=== PATIENT | female | born 1980 | race American Indian/Alaskan Native ===

== ENCOUNTER 2016-07-27 19:05 | Emergency (ER) | payer MEDICAID, SELFPAY ==
--- NOTE | 2016-07-27 19:35 | EDM.PDOC ---
ED HPI GI/ABDOMINAL - General Chief Complaint: Abdominal Pain Stated Complaint: CYST/PAIN Time Seen by Provider: 07/27/16 19:32 Source of Information: Reports: Patient, Other (notes from ) History Limitations: Reports: No limitations - History of Present Illness INITIAL COMMENTS - FREE TEXT/NARRATIVE: states been in pain past few weeks, was @ and seen by Dr Blanco surgeon and told need further w/u but in pain since then but had not call him since then. came tonight pain unbearable. - Related Data Allergies/ADRs: Allergies Allergy/AdvReac Type Severity Reaction Status Date / Time celecoxib [From Celebrex] Allergy Hives Verified 07/27/16 19:53 erythromycin base Allergy Hives Verified 07/27/16 19:53 [Erythromycin Base] ibuprofen Allergy Swelling Verified 07/27/16 19:53 naproxen Allergy Airway Verified 07/27/16 19:53 Tightness Home Meds: Home Meds . [No Known Home Meds] 05/09/16 [History] Past Medical History - Past Health History Medical/Surgical History: Denies Medical/Surgical History HEENT History: Reports: None Other HEENT History: wears corrective lenses Cardiovascular History: Reports: Other (see below) Other Cardiovascular History: cardiac arrest during pelvic surgery 3 years ago. Respiratory History: Reports: None Gastrointestinal History: Reports: Cholelithiasis Other Gastrointestinal History: diarrhea since 3 am Genitourinary History: Reports: Other (see below) Other Genitourinary History: endometrosis, PCOS. 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 Psychiatric History: Reports: None Endocrine/Metabolic History: Reports: Other (see below) Other Endocrine/Metabolic History: insulin resistant. adrenal hyperplasia Hematologic History: Reports: None Immunologic History: Reports: None Oncologic (Cancer) History: Reports: Ovarian Dermatologic History: Reports: None - Infectious Disease History Infectious Disease History: Reports: None - Past Surgical History Head Surgeries/Procedures: Reports: None GI Surgical History: Reports: Appendectomy, Cholecystectomy, Other (see below) Other GI Surgeries/Procedures: laproscopic surgeries for endometriosis x18 Female Surgical History: Reports: Hysterectomy Musculoskeletal Surgical History: Reports: None Social & Family History - Family History Family Medical History: Noncontributory Cardiac: Reports: None Respiratory: Reports: None GI: Reports: None Immunologic: Reports: None Dermatologic: Reports: None Oncologic: Reports: None - Tobacco Use Smoking Status *Q: Never Smoker Years of Tobacco use: 20 Packs/Tins Daily: 1 Used Tobacco, but Quit: No Month Tobacco Last Used: september Second Hand Smoke Exposure: No - Caffeine Use Caffeine Use: Reports: None - Alcohol Use Days Per Week of Alcohol Use: 0 - Recreational Drug Use Recreational Drug Use: No - Living Situation & Occupation Living situation: Reports: with family, single Occupation: unemployed ED ROS GENERAL - Review of Systems Review Of Systems: ROS reveals no pertinent complaints other than HPI. ED EXAM, GI/ABD - Physical Exam Exam: See Below Exam Limited By: No limitations General Appearance: alert, WD/WN, mild distress, other (crying) Ears: hearing grossly normal Throat/Mouth: Normal voice, No airway compromise Head: atraumatic Neck: non-tender, full range of motion Respiratory/Chest: no respiratory distress Cardiovascular: regular rate, rhythm GI/Abdominal: hyperactive bowel sounds, tenderness, other (suprapubic region. splinting.). No: guarding, rebound, rigidity Neurological: alert, oriented, normal cognition, other (gait limited to pain) Psychiatric: tearful Skin Exam: Warm, Dry Lymphatic: no adenopathy Course - Vital Signs Last Recorded V/S: Last Vital Signs Temp 36.3 C 07/27/16 19:11 Pulse 107 H 07/27/16 19:11 Resp 20 07/27/16 19:11 BP 132/92 H 07/27/16 19:11 Pulse Ox 97 07/27/16 19:11 - Orders/Labs/Meds Labs: Laboratory Tests 07/27/16 Range/Units 19:50 WBC 9.7 (5.0-10.0) 10^3/uL RBC 4.59 (4.2-5.4) 10^6/uL Hgb 13.7 (12.0-16.0) g/dL Hct 40.7 (37.0-47.0) % MCV 88.7 (80-100) fL MCH 29.8 (27.0-34.0) pg MCHC 33.7 (33.0-35.0) g/dL Plt Count 270 (150-450) 10^3/uL Neut % (Auto) 62.0 (42.2-75.2) % Lymph % (Auto) 27.6 (20.5-50.1) % Richardson % (Auto) 9.8 H (2-8) % Eos % (Auto) 0.4 L (1.0-3.0) % Baso % (Auto) 0.2 (0.0-1.0) % Meds: Medications Discontinued Medications Generic Name Dose Route Start Last Admin Trade Name Freq PRN Reason Stop Dose Admin Butorphanol Tartrate 2 mg 07/27/16 19:44 07/27/16 19:53 Stadol IM 07/27/16 19:45 2 mg ONETIME ONE Administration Promethazine HCl 25 mg 07/27/16 19:44 07/27/16 19:53 Phenergan IM 07/27/16 19:45 25 mg ONETIME ONE Administration - Re-Assessments/Exams Free Text/Narrative Re-Assessment/Exam: 07/27/16 19:45 fax'd report from [facility] reveal extensive w/u without any real definitive answers to justify the amount of pain experienced. currently pending repeat [place]. Pt already had repeat CAT @ [facility] on . discussed with Pt the problem of excess radiation. she agreed to repeat CBC as deciding factor. also will settle on stadol+phenergan instead of dilaudid. 07/27/16 20:14 results discussed with Pt who is less distraught at present. Departure - Departure Time of Disposition: 20:15 Disposition: Home, Self-Care 01 Condition: good Clinical Impression: Abdominal pain Qualifiers: Abdominal location: lower abdomen, unspecified Qualified Code(s): R10.30 - Lower abdominal pain, unspecified Instructions: Abdominal Pain, Adult, [id number] Forms: ED Department Discharge Additional Instructions: 1) follow up with clinic tomorrow 2) notify Dr Tay tomorrow on pain issue 3) recheck as needed
[2016-07-27] MEDS ORDERED: Butorphanol 2 MG/ML SDV IM ONE (19:44)
[2016-07-27] MEDS ORDERED: Promethazine 25 MG/ML SDV IM ONE (19:44)
[2016-07-27 20:16] VITALS: BP 108/57
== END 2016-07-27 20:22 | disposition home or self-care (01) ==
LOC: DL.ED 19:05
DX: R10.30 Lower abdominal pain, unspecified (principal); Z90.49 Acquired absence of other specified parts of digestive tract; Z90.710 Acquired absence of both cervix and uterus; Z88.1 Allergy status to other antibiotic agents; Z88.6 Allergy status to analgesic agent
CPT/HCPCS: 36415; 85025; 96372; 99284; J0595; J2550

== ENCOUNTER 2016-08-01 17:06 | Emergency (ER) | payer MEDICAID, SELFPAY ==
[2016-08-01 17:27] VITALS: BP 104/92
[2016-08-01 18:23] LABS: CHLORIDE,CL 104 mmol/L (101-111); SODIUM,NA 138 mmol/L (135-145)
[2016-08-01] MEDS ORDERED: HYDROmorphone 1 MG/ML Syringe IVPUSH ONE (18:37)
[2016-08-01] MEDS ORDERED: Sodium Chloride 0.9% 1,000 ML IV ONE (18:37)
[2016-08-01] MEDS ORDERED: Ondansetron 4 MG/2 ML SDV IV ONE (18:37)
--- NOTE | 2016-08-02 12:50 | EDM.PDOC ---
Scribed by Yessica Nelson 08/01/16 [id number] for Pepe Vasquez PA <[email or web address] - Last Filed: 08/02/16 05:13> ED HPI GI/ABDOMINAL - General Chief Complaint: Abdominal Pain Stated Complaint: CYST KIDNEY Time Seen by Provider: 08/01/16 17:29 - Related Data Allergies/ADRs: Allergies Allergy/AdvReac Type Severity Reaction Status Date / Time celecoxib [From Celebrex] Allergy Hives Verified 07/27/16 19:53 erythromycin base Allergy Hives Verified 07/27/16 19:53 [Erythromycin Base] ibuprofen Allergy Swelling Verified 07/27/16 19:53 naproxen Allergy Airway Verified 07/27/16 19:53 Tightness Home Meds: Home Meds . [No Known Home Meds] 05/09/16 [History] Course - Vital Signs Last Recorded V/S: Last Vital Signs Temp 36.2 C 08/01/16 17:21 Pulse 93 08/01/16 17:21 Resp 18 08/01/16 17:21 BP 104/92 H 08/01/16 17:21 Pulse Ox 99 08/01/16 17:21 - Orders/Labs/Meds Labs: Laboratory Tests 08/01/16 08/01/16 08/01/16 Range/Units 17:39 17:39 17:50 WBC 11.0 H (5.0-10.0) 10^3/uL RBC 4.66 (4.2-5.4) 10^6/uL Hgb 13.9 (12.0-16.0) g/dL Hct 41.4 (37.0-47.0) % MCV 88.8 (80-100) fL MCH 29.8 (27.0-34.0) pg MCHC 33.6 (33.0-35.0) g/dL Plt Count 298 (150-450) 10^3/uL Neut % (Auto) 63.5 (42.2-75.2) % Lymph % (Auto) 25.8 (20.5-50.1) % [place] % (Auto) 9.9 H (2-8) % Eos % (Auto) 0.5 L (1.0-3.0) % Baso % (Auto) 0.3 (0.0-1.0) % Sodium (135-145) mmol/L Potassium (3.6-5.0) mmol/L Chloride (101-111) mmol/L Carbon Dioxide (21.0-31.0) mmol/L Anion Gap BUN (7-18) mg/dL Creatinine (0.6-1.3) mg/dL Est Cr Clr Drug Dosing mL/min Estimated GFR (MDRD) BUN/Creatinine Ratio Glucose (74-105) mg/dL Calcium (8.4-10.2) mg/dl Total Bilirubin (0.2-1.0) mg/dL AST (10-42) IU/L ALT (10-60) IU/L Alkaline Phosphatase (42-121) IU/L Total Protein (6.7-8.2) g/dl Albumin (3.2-5.5) g/dl Globulin Albumin/Globulin Ratio Urine Color Light yellow (YELLOW) Urine Appearance Slightly cloudy (CLEAR) Urine pH 7.0 (5.0-9.0) Ur Specific Josephine 1.010 (1.005-1.030) Urine Protein Negative (NEGATIVE) Urine Glucose (UA) Negative (NEGATIVE) Urine Ketones Negative (NEGATIVE) Urine Occult Blood Negative (NEGATIVE) Urine Nitrite Negative (NEGATIVE) Urine Bilirubin Negative (NEGATIVE) Urine Urobilinogen 0.2 (0.2-1.0) mg/dL Ur Leukocyte Esterase Trace H (NEGATIVE) Urine RBC 0-5 /HPF Urine WBC 0-5 (0-5/HPF) /HPF Ur Epithelial Cells Moderate H /HPF Urine Bacteria Moderate H (0-FEW/HPF) /HPF Urine Yeast Few H (0/HPF) /HPF Urinalysis Comment Urine Opiates Screen Negative (NEGATIVE) Ur Oxycodone Screen Negative (NEGATIVE) Urine Methadone Screen Negative (NEGATIVE) Ur Barbiturates Screen Negative (NEGATIVE) U Tricyclic Antidepress Negative (NEGATIVE) Ur Phencyclidine Scrn Negative (NEGATIVE) Ur Amphetamine Screen Negative (NEGATIVE) U Methamphetamines Scrn Negative (NEGATIVE) Urine MDMA Screen Negative (NEGATIVE) U Benzodiazepines Scrn Positive H (NEGATIVE) Urine Cocaine Screen Negative (NEGATIVE) U Marijuana (THC) Screen Positive H (NEGATIVE) 08/01/16 Range/Units 17:50 WBC (5.0-10.0) 10^3/uL RBC (4.2-5.4) 10^6/uL Hgb (12.0-16.0) g/dL Hct (37.0-47.0) % MCV (80-100) fL MCH (27.0-34.0) pg MCHC (33.0-35.0) g/dL Plt Count (150-450) 10^3/uL Neut % (Auto) (42.2-75.2) % Lymph % (Auto) (20.5-50.1) % [place] % (Auto) (2-8) % Eos % (Auto) (1.0-3.0) % Baso % (Auto) (0.0-1.0) % Sodium 138 (135-145) mmol/L Potassium 3.7 (3.6-5.0) mmol/L Chloride 104 (101-111) mmol/L Carbon Dioxide 25.0 (21.0-31.0) mmol/L Anion Gap 12.7 BUN 15 (7-18) mg/dL Creatinine 0.7 (0.6-1.3) mg/dL Est Cr Clr Drug Dosing 93.64 mL/min Estimated GFR (MDRD) > 60 BUN/Creatinine Ratio 21.42 Glucose 85 (74-105) mg/dL Calcium 9.3 (8.4-10.2) mg/dl Total Bilirubin 0.5 (0.2-1.0) mg/dL AST 21 (10-42) IU/L ALT 17 (10-60) IU/L Alkaline Phosphatase 60 (42-121) IU/L Total Protein 7.8 (6.7-8.2) g/dl Albumin 4.7 (3.2-5.5) g/dl Globulin 3.1 Albumin/Globulin Ratio 1.52 Urine Color (YELLOW) Urine Appearance (CLEAR) Urine pH (5.0-9.0) Ur Specific Josephine (1.005-1.030) Urine Protein (NEGATIVE) Urine Glucose (UA) (NEGATIVE) Urine Ketones (NEGATIVE) Urine Occult Blood (NEGATIVE) Urine Nitrite (NEGATIVE) Urine Bilirubin (NEGATIVE) Urine Urobilinogen (0.2-1.0) mg/dL Ur Leukocyte Esterase (NEGATIVE) Urine RBC /HPF Urine WBC (0-5/HPF) /HPF Ur Epithelial Cells /HPF Urine Bacteria (0-FEW/HPF) /HPF Urine Yeast (0/HPF) /HPF Urinalysis Comment Urine Opiates Screen (NEGATIVE) Ur Oxycodone Screen (NEGATIVE) Urine Methadone Screen (NEGATIVE) Ur Barbiturates Screen (NEGATIVE) U Tricyclic Antidepress (NEGATIVE) Ur Phencyclidine Scrn (NEGATIVE) Ur Amphetamine Screen (NEGATIVE) U Methamphetamines Scrn (NEGATIVE) Urine MDMA Screen (NEGATIVE) U Benzodiazepines Scrn (NEGATIVE) Urine Cocaine Screen (NEGATIVE) U Marijuana (THC) Screen (NEGATIVE) Meds: Medications Discontinued Medications Generic Name Dose Route Start Last Admin Trade Name Addy PRN Reason Stop Dose Admin Hydromorphone HCl 1 mg 08/01/16 18:37 08/01/16 18:47 Dilaudid IVPUSH 08/01/16 18:38 1 mg ONETIME ONE Administration Sodium Chloride 1,000 mls @ 999 mls/hr 08/01/16 18:37 08/01/16 18:47 Normal Saline IV 08/01/16 19:37 999 mls/hr .BOLUS ONE Administration Ondansetron HCl 4 mg 08/01/16 18:37 08/01/16 18:46 Zofran IV 08/01/16 18:38 4 mg ONETIME ONE Administration Departure - Departure Time of Disposition: 20:00 Disposition: Home, Self-Care 01 Clinical Impression: Abdominal pain Instructions: Abdominal Pain, Adult, [id number] Referrals: Alissa John MD [Primary Care Provider] - Forms: ED Department Discharge Care Plan Goals: Discussed the examination and lab results with the patient and her mother. The patient was given a liter of IV fluids, IV Zofran and IV Dilaudid while in the ED. The patient was advised to follow-up with a primary care provider for continued evaluation and further management. The patient was encouraged to continue to call facilities for the transfer of records in order to give the primary provider all information necessary for continued evaluation, referrals and management. If the patient has any additional symptoms or concerns, the patient should visit her primary care facility or return to the emergency department. <Pepe Vasquez - Last Filed: 08/02/16 12:50> ED HPI GI/ABDOMINAL - General Source of Information: Reports: Patient, RN, RN notes reviewed History Limitations: Reports: No limitations - History of Present Illness INITIAL COMMENTS - FREE TEXT/NARRATIVE: Patient presents with LLQ lump. Her pain started at 1 p.m. and she has not taken anything for the pain. She tried heat and ice. She did not followup after her last ER visit because she has changed providers now. She will be seeing Sheila at [facility] in a couple of weeks. She has a history of endometriosis. According to patient and her mother, the patient has seen Dr. Tay with [facility] in [place]. Dr. Tay had sent her to the ED to get an MRI, but the MRI was not ordered with contrast. Dr. Tay now wants Sheila from [facility] to order the appropriate test. The mother reports that the patient has a history of endometriosis that has been discovered in different areas in the patient's abdomen after they "though they got it all." The mother did report that they were warned about the possibility of growths from the endometriosis showing up in many different spots in her abdomen. Symptom Onset Date: 08/01/16 Symptom Onset Time: 13:00 Timing/Duration: Reports: Constant, Getting worse Location: RLQ Quality: Reports: ache, cramping Severity: severe Worsens with: Reports: palpation Context: Reports: other (chronic abdominal pain with no follow up ) Associated Symptoms (-Female): Reports: groin pain (right groin pain ) Past Medical History - Past Health History Medical/Surgical History: Denies Medical/Surgical History HEENT History: Reports: None Other HEENT History: wears corrective lenses Cardiovascular History: Reports: Other (see below) Other Cardiovascular History: cardiac arrest during pelvic surgery 3 years ago. Respiratory History: Reports: None Gastrointestinal History: Reports: Cholelithiasis Other Gastrointestinal History: diarrhea since 3 am Genitourinary History: Reports: Other (see below) Other Genitourinary History: endometrosis, PCOS. 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 Psychiatric History: Reports: None Endocrine/Metabolic History: Reports: Other (see below) Other Endocrine/Metabolic History: insulin resistant. adrenal hyperplasia Hematologic History: Reports: None Immunologic History: Reports: None Oncologic (Cancer) History: Reports: Ovarian Dermatologic History: Reports: None - Infectious Disease History Infectious Disease History: Reports: None - Past Surgical History Head Surgeries/Procedures: Reports: None GI Surgical History: Reports: Appendectomy, Cholecystectomy, Other (see below) Other GI Surgeries/Procedures: laproscopic surgeries for endometriosis x18 Female Surgical History: Reports: Hysterectomy Musculoskeletal Surgical History: Reports: None Social & Family History - Family History Family Medical History: Noncontributory Cardiac: Reports: None Respiratory: Reports: None GI: Reports: None Immunologic: Reports: None Dermatologic: Reports: None Oncologic: Reports: None - Tobacco Use Smoking Status *Q: Never Smoker Years of Tobacco use: 20 Packs/Tins Daily: 1 Used Tobacco, but Quit: No Month Tobacco Last Used: september Second Hand Smoke Exposure: No - Caffeine Use Caffeine Use: Reports: None - Alcohol Use Days Per Week of Alcohol Use: 0 - Recreational Drug Use Recreational Drug Use: No - Living Situation & Occupation Living situation: Reports: with family, single Occupation: unemployed ED ROS GENERAL - Review of Systems Review Of Systems: ROS reveals no pertinent complaints other than HPI. ED EXAM, GI/ABD - Physical Exam Exam: See Below Exam Limited By: No limitations General Appearance: alert, WD/WN, moderate distress, thin Eyes: bilateral: normal appearance, EOMI Ears: normal external exam, normal canal, hearing grossly normal, normal TMs Nose: normal inspection, normal mucosa, no blood Throat/Mouth: Normal inspection, Normal lips, Normal teeth, Normal gums, Normal oropharynx, Normal voice, No airway compromise Head: atraumatic, normocephalic Neck: normal inspection, supple, non-tender, full range of motion Respiratory/Chest: no respiratory distress, lungs clear, normal breath sounds, no accessory muscle use, chest non-tender Cardiovascular: normal peripheral pulses, regular rate, rhythm, no edema, no gallop, no JVD, no murmur, no rub GI/Abdominal: normal bowel sounds, tenderness (RLQ), guarding, mass (small palpable lumps in her right groin (lymph nodes vs. growths)) (Female) Exam: Deferred Rectal (Female) Exam: Deferred Back Exam: normal inspection, full range of motion, NT Extremities: normal inspection, normal range of motion, non-tender, normal capillary refill, no pedal edema Neurological: alert, oriented, CN II-XII intact Psychiatric: anxious, depressed mood, flat affect, tearful Skin Exam: Diaphoretic, Increased warmth Lymphatic: no adenopathy Course - Orders/Labs/Meds Labs: Laboratory Tests 08/01/16 08/01/16 08/01/16 Range/Units 17:39 17:39 17:50 WBC 11.0 H (5.0-10.0) 10^3/uL RBC 4.66 (4.2-5.4) 10^6/uL Hgb 13.9 (12.0-16.0) g/dL Hct 41.4 (37.0-47.0) % MCV 88.8 (80-100) fL MCH 29.8 (27.0-34.0) pg MCHC 33.6 (33.0-35.0) g/dL Plt Count 298 (150-450) 10^3/uL Neut % (Auto) 63.5 (42.2-75.2) % Lymph % (Auto) 25.8 (20.5-50.1) % [place] % (Auto) 9.9 H (2-8) % Eos % (Auto) 0.5 L (1.0-3.0) % Baso % (Auto) 0.3 (0.0-1.0) % Sodium (135-145) mmol/L Potassium (3.6-5.0) mmol/L Chloride (101-111) mmol/L Carbon Dioxide (21.0-31.0) mmol/L Anion Gap BUN (7-18) mg/dL Creatinine (0.6-1.3) mg/dL Est Cr Clr Drug Dosing mL/min Estimated GFR (MDRD) BUN/Creatinine Ratio Glucose (74-105) mg/dL Calcium (8.4-10.2) mg/dl Total Bilirubin (0.2-1.0) mg/dL AST (10-42) IU/L ALT (10-60) IU/L Alkaline Phosphatase (42-121) IU/L Total Protein (6.7-8.2) g/dl Albumin (3.2-5.5) g/dl Globulin Albumin/Globulin Ratio Urine Color Light yellow (YELLOW) Urine Appearance Slightly cloudy (CLEAR) Urine pH 7.0 (5.0-9.0) Ur Specific Josephine 1.010 (1.005-1.030) Urine Protein Negative (NEGATIVE) Urine Glucose (UA) Negative (NEGATIVE) Urine Ketones Negative (NEGATIVE) Urine Occult Blood Negative (NEGATIVE) Urine Nitrite Negative (NEGATIVE) Urine Bilirubin Negative (NEGATIVE) Urine Urobilinogen 0.2 (0.2-1.0) mg/dL Ur Leukocyte Esterase Trace H (NEGATIVE) Urine RBC 0-5 /HPF Urine WBC 0-5 (0-5/HPF) /HPF Ur Epithelial Cells Moderate H /HPF Urine Bacteria Moderate H (0-FEW/HPF) /HPF Urine Yeast Few H (0/HPF) /HPF Urinalysis Comment Urine Opiates Screen Negative (NEGATIVE) Ur Oxycodone Screen Negative (NEGATIVE) Urine Methadone Screen Negative (NEGATIVE) Ur Barbiturates Screen Negative (NEGATIVE) U Tricyclic Antidepress Negative (NEGATIVE) Ur Phencyclidine Scrn Negative (NEGATIVE) Ur Amphetamine Screen Negative (NEGATIVE) U Methamphetamines Scrn Negative (NEGATIVE) Urine MDMA Screen Negative (NEGATIVE) U Benzodiazepines Scrn Positive H (NEGATIVE) Urine Cocaine Screen Negative (NEGATIVE) U Marijuana (THC) Screen Positive H (NEGATIVE) 08/01/16 Range/Units 17:50 WBC (5.0-10.0) 10^3/uL RBC (4.2-5.4) 10^6/uL Hgb (12.0-16.0) g/dL Hct (37.0-47.0) % MCV (80-100) fL MCH (27.0-34.0) pg MCHC (33.0-35.0) g/dL Plt Count (150-450) 10^3/uL Neut % (Auto) (42.2-75.2) % Lymph % (Auto) (20.5-50.1) % [place] % (Auto) (2-8) % Eos % (Auto) (1.0-3.0) % Baso % (Auto) (0.0-1.0) % Sodium 138 (135-145) mmol/L Potassium 3.7 (3.6-5.0) mmol/L Chloride 104 (101-111) mmol/L Carbon Dioxide 25.0 (21.0-31.0) mmol/L Anion Gap 12.7 BUN 15 (7-18) mg/dL Creatinine 0.7 (0.6-1.3) mg/dL Est Cr Clr Drug Dosing 93.64 mL/min Estimated GFR (MDRD) > 60 BUN/Creatinine Ratio 21.42 Glucose 85 (74-105) mg/dL Calcium 9.3 (8.4-10.2) mg/dl Total Bilirubin 0.5 (0.2-1.0) mg/dL AST 21 (10-42) IU/L ALT 17 (10-60) IU/L Alkaline Phosphatase 60 (42-121) IU/L Total Protein 7.8 (6.7-8.2) g/dl Albumin 4.7 (3.2-5.5) g/dl Globulin 3.1 Albumin/Globulin Ratio 1.52 Urine Color (YELLOW) Urine Appearance (CLEAR) Urine pH (5.0-9.0) Ur Specific Josephine (1.005-1.030) Urine Protein (NEGATIVE) Urine Glucose (UA) (NEGATIVE) Urine Ketones (NEGATIVE) Urine Occult Blood (NEGATIVE) Urine Nitrite (NEGATIVE) Urine Bilirubin (NEGATIVE) Urine Urobilinogen (0.2-1.0) mg/dL Ur Leukocyte Esterase (NEGATIVE) Urine RBC /HPF Urine WBC (0-5/HPF) /HPF Ur Epithelial Cells /HPF Urine Bacteria (0-FEW/HPF) /HPF Urine Yeast (0/HPF) /HPF Urinalysis Comment Urine Opiates Screen (NEGATIVE) Ur Oxycodone Screen (NEGATIVE) Urine Methadone Screen (NEGATIVE) Ur Barbiturates Screen (NEGATIVE) U Tricyclic Antidepress (NEGATIVE) Ur Phencyclidine Scrn (NEGATIVE) Ur Amphetamine Screen (NEGATIVE) U Methamphetamines Scrn (NEGATIVE) Urine MDMA Screen (NEGATIVE) U Benzodiazepines Scrn (NEGATIVE) Urine Cocaine Screen (NEGATIVE) U Marijuana (THC) Screen (NEGATIVE) Meds: Medications Discontinued Medications Generic Name Dose Route Start Last Admin Trade Name Freq PRN Reason Stop Dose Admin Hydromorphone HCl 1 mg 08/01/16 18:37 08/01/16 18:47 Dilaudid IVPUSH 08/01/16 18:38 1 mg ONETIME ONE Administration Sodium Chloride 1,000 mls @ 999 mls/hr 08/01/16 18:37 08/01/16 18:47 Normal Saline IV 08/01/16 19:37 999 mls/hr .BOLUS ONE Administration Ondansetron HCl 4 mg 08/01/16 18:37 08/01/16 18:46 Zofran IV 08/01/16 18:38 4 mg ONETIME ONE Administration Departure - Departure Condition: fair I have read and agree with the documentation that has been completed regarding this visit. By signing this record, I attest that the documentation was completed in my physical presence and is an accurate record of the encounter.
== END 2016-08-01 20:04 | disposition home or self-care (01) ==
LOC: DL.ED 17:06
DX: R10.31 Right lower quadrant pain (principal); G43.909 Migraine, unspecified, not intractable, without status migrainosus; Z90.49 Acquired absence of other specified parts of digestive tract; Z90.710 Acquired absence of both cervix and uterus
CPT/HCPCS: 36415; 80053; 80305; 81001; 85025; 96361; 96374; 96375; 99284; J1170; J2405; J7030

== ENCOUNTER 2016-09-26 19:18 | Emergency (ER) | payer MEDICAID | END 2016-09-26 19:40 | disposition left against medical advice (07) | LOC: DL.ED 19:18 | DX: Z53.21 Procedure and treatment not carried out due to patient leaving prior to being seen by health care provider (principal) ==

== ENCOUNTER 2016-09-27 07:41 | Emergency (ER) | payer MEDICAID, SELFPAY ==
--- NOTE | 2016-09-27 08:21 | EDM.PDOC ---
ED HPI GENERAL MEDICAL PROBLEM - General Chief Complaint: Abdominal Pain Stated Complaint: LOWER GROIN Time Seen by Provider: 09/27/16 07:55 Source of Information: Reports: Patient, Family History Limitations: Reports: No Limitations - History of Present Illness INITIAL COMMENTS - FREE TEXT/NARRATIVE: This 36 yo female patient reports to the ED with right lower abdominal/pelvic pain. The patient reports she was seen by Dr. Cornejo (MEDICAL HISTORIAN with [facility] in [place]) on Sunday of this week. The patient reports Dr. Cornejo advised her to wait until her symptom are back, come to the ED and get an ultrasound of the area (looking for a cyst). The patient reports her pain started last night. The patient did come into the ED last night, but left prior to being seen. The patient reports she has been taking Tylenol with no symptom relief. The patient reports she thinks one area ruptured this morning. The patient reports she has been feeling something in her abdomen/pelvis pulsating and moving to the middle of her lower abdomen. Onset: Sudden Onset Date: 09/26/16 Duration: Constant Location: Reports: Abdomen (RLQ) Quality: Reports: Ache, Sharp Severity: Severe Improves with: Reports: None Worsens with: Reports: None Context: Reports: Other Associated Symptoms: Reports: Nausea/Vomiting Treatments PROJECT ASSISTANT: Reports: Acetaminophen Right Pelvic Pain Score (Numeric/FACES): 9 - Related Data Allergies Allergy/AdvReac Type Severity Reaction Status Date / Time celecoxib [From Celebrex] Allergy Hives Verified 09/27/16 07:51 erythromycin base Allergy Hives Verified 09/27/16 07:51 [Erythromycin Base] ibuprofen Allergy Swelling Verified 09/27/16 07:51 naproxen Allergy Airway Verified 09/27/16 07:51 Tightness Home Meds: Home Meds . [No Known Home Meds] 05/09/16 [History] Past Medical History - Past Health History Medical/Surgical History: Denies Medical/Surgical History HEENT History: Reports: None Other HEENT History: wears corrective lenses Cardiovascular History: Reports: Other (See Below) Other Cardiovascular History: "heart stopped during surgery" Respiratory History: Reports: None Gastrointestinal History: Reports: Cholelithiasis Other Gastrointestinal History: diarrhea since 3 am Genitourinary History: Reports: Other (See Below) Other Genitourinary History: endometrosis, PCOS. 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 Psychiatric History: Reports: None Endocrine/Metabolic History: Reports: Other (See Below) Other Endocrine/Metabolic History: "insulin resistant" Hematologic History: Reports: None Immunologic History: Reports: None Oncologic (Cancer) History: Reports: Ovarian Dermatologic History: Reports: None - Infectious Disease History Infectious Disease History: Reports: None - Past Surgical History Head Surgeries/Procedures: Reports: None GI Surgical History: Reports: Appendectomy, Cholecystectomy, Other (See Below) Musculoskeletal Surgical History: Reports: None Social & Family History - Family History Family Medical History: Noncontributory Cardiac: Reports: None Respiratory: Reports: None GI: Reports: None Immunologic: Reports: None Dermatologic: Reports: None Oncologic: Reports: None - Tobacco Use Smoking Status *Q: Never Smoker Years of Tobacco use: 20 Packs/Tins Daily: 1 Used Tobacco, but Quit: No Month Tobacco Last Used: september Second Hand Smoke Exposure: No - Caffeine Use Caffeine Use: Reports: None - Alcohol Use Days Per Week of Alcohol Use: 0 - Recreational Drug Use Recreational Drug Use: No - Living Situation & Occupation Living situation: Reports: with Family, Single Occupation: Unemployed ED ROS GENERAL - Review of Systems Review Of Systems: ROS reveals no pertinent complaints other than HPI. ED EXAM, GI/ABD - Physical Exam Exam: See Below Exam Limited By: No Limitations General Appearance: Alert, WD/WN, Moderate Distress, Thin Eyes: Bilateral: Normal Appearance, EOMI Ears: Normal External Exam, Normal Canal, Hearing Grossly Normal, Normal TMs Nose: Normal Inspection, Normal Mucosa, No Blood Throat/Mouth: Normal Inspection, Normal Lips, Normal Teeth, Normal Gums, Normal Oropharynx, Normal Voice, No Airway Compromise Head: Atraumatic, Normocephalic Neck: Normal Inspection, Supple, Non-Tender, Full Range of Motion Respiratory/Chest: No Respiratory Distress, Lungs Clear, Normal Breath Sounds, No Accessory Muscle Use, Chest Non-Tender Cardiovascular: Normal Peripheral Pulses, Regular Rate, Rhythm, No Edema, No Gallop, No JVD, No Murmur, No Rub GI/Abdominal: Normal Bowel Sounds, Tenderness, Guarding. No: Distention, Mass (Female) Exam: Deferred Rectal (Female) Exam: Deferred Back Exam: Normal Inspection, Full Range of Motion, NT Extremities: Normal Inspection, Normal Range of Motion, Non-Tender, Normal Capillary Refill, No Pedal Edema Neurological: Alert, Oriented, CN II-XII Intact, Normal Cognition, Normal Gait, Normal Reflexes, No Motor/Sensory Deficits Psychiatric: Normal Affect, Normal Mood Skin Exam: Warm, Dry, Intact, Normal Color, No Rash Lymphatic: No Adenopathy Course - Vital Signs Last Recorded V/S: Last Vital Signs Temp 35.9 C 09/27/16 07:53 Pulse 75 09/27/16 10:12 Resp 16 09/27/16 10:12 BP 108/62 09/27/16 10:12 Pulse Ox 98 09/27/16 10:12 - Orders/Labs/Meds Labs: Laboratory Tests 09/27/16 09/27/16 09/27/16 Range/Units 08:14 08:14 08:15 WBC 11.3 H (5.0-10.0) 10^3/uL RBC 4.85 (4.2-5.4) 10^6/uL Hgb 14.4 (12.0-16.0) g/dL Hct 42.5 (37.0-47.0) % MCV 87.6 (80-100) fL MCH 29.7 (27.0-34.0) pg MCHC 33.9 (33.0-35.0) g/dL Plt Count 349 (150-450) 10^3/uL Neut % (Auto) 77.7 H (42.2-75.2) % Lymph % (Auto) 14.4 L (20.5-50.1) % [place] % (Auto) 7.5 (2-8) % Eos % (Auto) 0.2 L (1.0-3.0) % Baso % (Auto) 0.2 (0.0-1.0) % Sodium 136 (135-145) mmol/L Potassium 3.7 (3.6-5.0) mmol/L Chloride 105 (101-111) mmol/L Carbon Dioxide 21.0 (21.0-31.0) mmol/L Anion Gap 13.7 BUN 14 (7-18) mg/dL Creatinine 0.6 (0.6-1.3) mg/dL Est Cr Clr Drug Dosing 109.29 mL/min Estimated GFR (MDRD) > 60 BUN/Creatinine Ratio 23.33 Glucose 96 (74-105) mg/dL Calcium 9.5 (8.4-10.2) mg/dl Total Bilirubin 0.6 (0.2-1.0) mg/dL AST 21 (10-42) IU/L ALT 13 (10-60) IU/L Alkaline Phosphatase 72 (42-121) IU/L Total Protein 8.0 (6.7-8.2) g/dl Albumin 4.2 (3.2-5.5) g/dl Globulin 3.8 Albumin/Globulin Ratio 1.11 Urine Color (YELLOW) Urine Appearance (CLEAR) Urine pH (5.0-9.0) Ur Specific [place] (1.005-1.030) Urine Protein (NEGATIVE) Urine Glucose (UA) (NEGATIVE) Urine Ketones (NEGATIVE) Urine Occult Blood (NEGATIVE) Urine Nitrite (NEGATIVE) Urine Bilirubin (NEGATIVE) Urine Urobilinogen (0.2-1.0) mg/dL Ur Leukocyte Esterase (NEGATIVE) Urine RBC /HPF Urine WBC (0-5/HPF) /HPF Ur Epithelial Cells /HPF Urine Bacteria (0-FEW/HPF) /HPF Urine Mucus /LPF Urine Opiates Screen Negative (NEGATIVE) Ur Oxycodone Screen Negative (NEGATIVE) Urine Methadone Screen Negative (NEGATIVE) Ur Barbiturates Screen Negative (NEGATIVE) U Tricyclic Antidepress Negative (NEGATIVE) Ur Phencyclidine Scrn Negative (NEGATIVE) Ur Amphetamine Screen Negative (NEGATIVE) U Methamphetamines Scrn Negative (NEGATIVE) Urine MDMA Screen Negative (NEGATIVE) U Benzodiazepines Scrn Negative (NEGATIVE) Urine Cocaine Screen Negative (NEGATIVE) U Marijuana (THC) Screen Positive H (NEGATIVE) 09/27/16 Range/Units 08:15 WBC (5.0-10.0) 10^3/uL RBC (4.2-5.4) 10^6/uL Hgb (12.0-16.0) g/dL Hct (37.0-47.0) % MCV (80-100) fL MCH (27.0-34.0) pg MCHC (33.0-35.0) g/dL Plt Count (150-450) 10^3/uL Neut % (Auto) (42.2-75.2) % Lymph % (Auto) (20.5-50.1) % [place] % (Auto) (2-8) % Eos % (Auto) (1.0-3.0) % Baso % (Auto) (0.0-1.0) % Sodium (135-145) mmol/L Potassium (3.6-5.0) mmol/L Chloride (101-111) mmol/L Carbon Dioxide (21.0-31.0) mmol/L Anion Gap BUN (7-18) mg/dL Creatinine (0.6-1.3) mg/dL Est Cr Clr Drug Dosing mL/min Estimated GFR (MDRD) BUN/Creatinine Ratio Glucose (74-105) mg/dL Calcium (8.4-10.2) mg/dl Total Bilirubin (0.2-1.0) mg/dL AST (10-42) IU/L ALT (10-60) IU/L Alkaline Phosphatase (42-121) IU/L Total Protein (6.7-8.2) g/dl Albumin (3.2-5.5) g/dl Globulin Albumin/Globulin Ratio Urine Color Yellow (YELLOW) Urine Appearance Slightly cloudy (CLEAR) Urine pH 5.5 (5.0-9.0) Ur Specific [place] 1.025 (1.005-1.030) Urine Protein 100 H (NEGATIVE) Urine Glucose (UA) Negative (NEGATIVE) Urine Ketones 40 H (NEGATIVE) Urine Occult Blood Negative (NEGATIVE) Urine Nitrite Negative (NEGATIVE) Urine Bilirubin Moderate H (NEGATIVE) Urine Urobilinogen 0.2 (0.2-1.0) mg/dL Ur Leukocyte Esterase Negative (NEGATIVE) Urine RBC 0-5 /HPF Urine WBC 0-5 (0-5/HPF) /HPF Ur Epithelial Cells Few /HPF Urine Bacteria Moderate H (0-FEW/HPF) /HPF Urine Mucus Many H /LPF Urine Opiates Screen (NEGATIVE) Ur Oxycodone Screen (NEGATIVE) Urine Methadone Screen (NEGATIVE) Ur Barbiturates Screen (NEGATIVE) U Tricyclic Antidepress (NEGATIVE) Ur Phencyclidine Scrn (NEGATIVE) Ur Amphetamine Screen (NEGATIVE) U Methamphetamines Scrn (NEGATIVE) Urine MDMA Screen (NEGATIVE) U Benzodiazepines Scrn (NEGATIVE) Urine Cocaine Screen (NEGATIVE) U Marijuana (THC) Screen (NEGATIVE) Meds: Medications Discontinued Medications Generic Name Dose Route Start Last Admin Trade Name Addy PRN Reason Stop Dose Admin Sodium Chloride 1,000 mls @ 999 mls/hr 09/27/16 08:27 09/27/16 08:32 Normal Saline IV 09/27/16 09:27 999 mls/hr .BOLUS ONE Administration Departure - Departure Time of Disposition: 10:32 Disposition: Home, Self-Care 01 Condition: fair Clinical Impression: Abdominal pain Qualifiers: Abdominal location: right lower quadrant Qualified Code(s): R10.31 - Right lower quadrant pain - Discharge Information Instructions: Abdominal Pain, Adult, [id number] Forms: ED Department Discharge Care Plan Goals: The patient was advised of the examination, lab and ultrasound results during the visit. The patient was encouraged to continue to drink plenty of fluids and remain physically active. If the patient has any additional symptoms or further concerns, the patient should follow-up with her primary care facility, with her specialist or return to the emergency department.
[2016-09-27] MEDS ORDERED: Sodium Chloride 0.9% 1,000 ML IV ONE (08:27)
[2016-09-27 08:41] LABS: CHLORIDE,CL 105 mmol/L (101-111); SODIUM,NA 136 mmol/L (135-145)
[2016-09-27 10:13] VITALS: BP 108/62
--- NOTE | 2016-09-27 10:26 | US ---
Clinical history: 36-year-old female with "moving" right lower quadrant pain (total hysterectomy). Interpretation: Surgically absent uterus and ovaries. Symmetric but incompletely distended urinary bladder with normal ureteral "jets" identified bilatera lly. No mucosal wall mass or dependent intraluminal echogenic "shadowing" bladder stones. Actively peristalsing bowel obscures most of the pelvis. No discrete pelvic mass or free fluid.
== END 2016-09-27 10:36 | disposition home or self-care (01) ==
LOC: DL.ED 07:41
DX: R10.31 Right lower quadrant pain (principal); Z88.8 Allergy status to other drugs, medicaments and biological substances
CPT/HCPCS: 36415; 76857; 80053; 80305; 81001; 85025; 96360; 99284; J7030

== ENCOUNTER 2016-11-29 15:03 | Emergency (ER) | payer MEDICAID, SELFPAY ==
[2016-11-29 16:02] LABS: CHLORIDE,CL 101 mmol/L (101-111); SODIUM,NA 136 mmol/L (135-145)
[2016-11-29] MEDS ORDERED: Sodium Chloride 0.9% 1,000 ML IV ONE (16:22)
[2016-11-29] MEDS ORDERED: Ondansetron 4 MG/2 ML SDV IV ONE (16:22)
--- NOTE | 2016-11-29 16:27 | EDM.PDOC ---
ED HPI GENERAL MEDICAL PROBLEM - General Chief Complaint: Back Pain or Injury Stated Complaint: IN BY [facility] Time Seen by Provider: 11/29/16 16:10 Source of Information: Reports: Patient History Limitations: Reports: No Limitations - History of Present Illness INITIAL COMMENTS - FREE TEXT/NARRATIVE: This 36 yo female patient reports with a 2 day history of not feeling well and having increased left flank pain. The patient reports she did take an oxycodone yesterday, but started to get nauseated with vomiting yesterday. The patient reports she had a cyst in her right axilla that "popped" 2 days ago when her symptoms started. The patient reports she has not been able to eat or drink since yesterday due to the pain and nausea. The patient did not get into her primary care facility. Onset Date: 11/27/16 Duration: Constant, Getting Worse Location: Reports: Back (left flank) Quality: Reports: Ache, Sharp Severity: Severe Improves with: Reports: None Worsens with: Reports: None Associated Symptoms: Reports: Fever/Chills, Nausea/Vomiting, Weakness Back Pain Score (Numeric/FACES): 9 - Related Data Allergies Allergy/AdvReac Type Severity Reaction Status Date / Time celecoxib [From Celebrex] Allergy Hives Verified 11/29/16 15:08 erythromycin base Allergy Hives Verified 11/29/16 15:08 [Erythromycin Base] ibuprofen Allergy Swelling Verified 11/29/16 15:08 naproxen Allergy Airway Verified 11/29/16 15:08 Tightness Home Meds: Home Meds oxyCODONE HCl/Acetaminophen [oxyCODONE-Acetaminophen 5-325] 1 tab PO PRN [History] Past Medical History - Past Health History Medical/Surgical History: Denies Medical/Surgical History HEENT History: Reports: None Other HEENT History: wears corrective lenses Cardiovascular History: Reports: Other (See Below) Other Cardiovascular History: "heart stopped during surgery" Respiratory History: Reports: None Gastrointestinal History: Reports: Cholelithiasis Other Gastrointestinal History: diarrhea since 3 am Genitourinary History: Reports: Other (See Below) Other Genitourinary History: endometrosis, PCOS. 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 Psychiatric History: Reports: None Endocrine/Metabolic History: Reports: Other (See Below) Other Endocrine/Metabolic History: "insulin resistant" Hematologic History: Reports: None Immunologic History: Reports: None Oncologic (Cancer) History: Reports: Ovarian Dermatologic History: Reports: None - Infectious Disease History Infectious Disease History: Reports: None - Past Surgical History Head Surgeries/Procedures: Reports: None GI Surgical History: Reports: Appendectomy, Cholecystectomy, Other (See Below) Musculoskeletal Surgical History: Reports: None Social & Family History - Family History Family Medical History: Noncontributory Cardiac: Reports: None Respiratory: Reports: None GI: Reports: None Immunologic: Reports: None Dermatologic: Reports: None Oncologic: Reports: None - Tobacco Use Smoking Status *Q: Former Smoker Years of Tobacco use: 20 Packs/Tins Daily: 1 Used Tobacco, but Quit: Yes Month Tobacco Last Used: ? Second Hand Smoke Exposure: No - Caffeine Use Caffeine Use: Reports: None - Alcohol Use Days Per Week of Alcohol Use: 0 - Recreational Drug Use Recreational Drug Use: No - Living Situation & Occupation Living situation: Reports: with Family, Single Occupation: Unemployed ED ROS GENERAL - Review of Systems Review Of Systems: ROS reveals no pertinent complaints other than HPI. ED EXAM,LOWER BACK PAIN/INJURY - Physical Exam Exam: See Below Exam Limited By: No Limitations General Appearance: Alert, WD/WN, Moderate Distress, Thin Eye Exam: Bilateral Eye: EOMI, Normal Inspection, PERRL Ears: Normal External Exam, Normal Canal, Hearing Grossly Normal, Normal TMs Nose: Normal Inspection, Normal Mucosa, No Blood Throat/Mouth: Normal Inspection, Normal Lips, Normal Teeth, Normal Gums, Normal Oropharynx, Normal Voice, No Airway Compromise Head: Atraumatic, Normocephalic Neck: Normal Inspection, Supple, Non-Tender, Full Range of Motion Respiratory/Chest: No Respiratory Distress, Lungs Clear, Normal Breath Sounds, No Accessory Muscle Use, Chest Non-Tender Cardiovascular: Normal Peripheral Pulses, Regular Rate, Rhythm, No Edema, No Gallop, No JVD, No Murmur, No Rub GI/Abdominal: Normal Bowel Sounds, Soft, Tender (generalized) (Female) Exam: Deferred Rectal (Female) Exam: Deferred Back Exam: CVA Tenderness (L), Paraspinal Tenderness Extremities: Normal Inspection, Normal Range of Motion, Non-Tender, No Pedal Edema, Normal Capillary Refill Neurological: Alert, Normal Mood/Affect, Normal Dorsiflexion, CN II-XII Intact, Normal Plantar Flexion, Normal Gait, Normal Reflexes, No Motor/Sensory Deficits , Oriented x 3 Psychiatric: Depressed Mood, Flat Affect Skin Exam: Warm, Dry, Intact, Normal Color, No Rash Lymphatic: No Adenopathy Course - Vital Signs Last Recorded V/S: Last Vital Signs Temp 36.3 C 11/29/16 17:43 Pulse 84 11/29/16 17:43 Resp 20 11/29/16 17:43 BP 114/48 L 11/29/16 17:43 Pulse Ox 99 11/29/16 17:43 - Orders/Labs/Meds Labs: Laboratory Tests 11/29/16 11/29/16 11/29/16 Range/Units 15:16 15:16 15:32 WBC 10.1 H (5.0-10.0) 10^3/uL RBC 4.96 (4.2-5.4) 10^6/uL Hgb 14.6 (12.0-16.0) g/dL Hct 43.4 (37.0-47.0) % MCV 87.5 (80-100) fL MCH 29.4 (27.0-34.0) pg MCHC 33.6 (33.0-35.0) g/dL Plt Count 284 (150-450) 10^3/uL Neut % (Auto) 77.8 H (42.2-75.2) % Lymph % (Auto) 15.2 L (20.5-50.1) % [place] % (Auto) 6.8 (2-8) % Eos % (Auto) 0.0 L (1.0-3.0) % Baso % (Auto) 0.2 (0.0-1.0) % Sodium (135-145) mmol/L Potassium (3.6-5.0) mmol/L Chloride (101-111) mmol/L Carbon Dioxide (21.0-31.0) mmol/L Anion Gap BUN (7-18) mg/dL Creatinine (0.6-1.3) mg/dL Est Cr Clr Drug Dosing Estimated GFR (MDRD) BUN/Creatinine Ratio Glucose (74-105) mg/dL Calcium (8.4-10.2) mg/dl Total Bilirubin (0.2-1.0) mg/dL AST (10-42) IU/L ALT (10-60) IU/L Alkaline Phosphatase (42-121) IU/L Total Protein (6.7-8.2) g/dl Albumin (3.2-5.5) g/dl Globulin Albumin/Globulin Ratio Amylase (28-100) U/L Lipase (22-51) U/L Urine Color Yellow (YELLOW) Urine Appearance Slightly cloudy (CLEAR) Urine pH 7.0 (5.0-9.0) Ur Specific [place] 1.020 (1.005-1.030) Urine Protein 30 H (NEGATIVE) Urine Glucose (UA) Negative (NEGATIVE) Urine Ketones 80 H (NEGATIVE) Urine Occult Blood Negative (NEGATIVE) Urine Nitrite Negative (NEGATIVE) Urine Bilirubin Small H (NEGATIVE) Urine Urobilinogen 0.2 (0.2-1.0) mg/dL Ur Leukocyte Esterase Negative (NEGATIVE) Urine RBC 0-5 /HPF Urine WBC 0-5 (0-5/HPF) /HPF Ur Epithelial Cells Few /HPF Urine Bacteria Rare (0-FEW/HPF) /HPF Urine Mucus Many H /LPF Urine Opiates Screen Positive H (NEGATIVE) Ur Oxycodone Screen Positive H (NEGATIVE) Urine Methadone Screen Negative (NEGATIVE) Ur Barbiturates Screen Negative (NEGATIVE) U Tricyclic Antidepress Positive H (NEGATIVE) Ur Phencyclidine Scrn Negative (NEGATIVE) Ur Amphetamine Screen Negative (NEGATIVE) U Methamphetamines Scrn Negative (NEGATIVE) Urine MDMA Screen Negative (NEGATIVE) U Benzodiazepines Scrn Negative (NEGATIVE) Urine Cocaine Screen Negative (NEGATIVE) U Marijuana (THC) Screen Positive H (NEGATIVE) Ethyl Alcohol mg/dL 11/29/16 Range/Units 15:32 WBC (5.0-10.0) 10^3/uL RBC (4.2-5.4) 10^6/uL Hgb (12.0-16.0) g/dL Hct (37.0-47.0) % MCV (80-100) fL MCH (27.0-34.0) pg MCHC (33.0-35.0) g/dL Plt Count (150-450) 10^3/uL Neut % (Auto) (42.2-75.2) % Lymph % (Auto) (20.5-50.1) % [place] % (Auto) (2-8) % Eos % (Auto) (1.0-3.0) % Baso % (Auto) (0.0-1.0) % Sodium 136 (135-145) mmol/L Potassium 3.7 (3.6-5.0) mmol/L Chloride 101 (101-111) mmol/L Carbon Dioxide 22.0 (21.0-31.0) mmol/L Anion Gap 16.7 BUN 12 (7-18) mg/dL Creatinine 0.6 (0.6-1.3) mg/dL Est Cr Clr Drug Dosing TNP Estimated GFR (MDRD) > 60 BUN/Creatinine Ratio 20.00 Glucose 94 (74-105) mg/dL Calcium 9.5 (8.4-10.2) mg/dl Total Bilirubin 0.8 (0.2-1.0) mg/dL AST 21 (10-42) IU/L ALT 17 (10-60) IU/L Alkaline Phosphatase 64 (42-121) IU/L Total Protein 7.9 (6.7-8.2) g/dl Albumin 4.6 (3.2-5.5) g/dl Globulin 3.3 Albumin/Globulin Ratio 1.39 Amylase 50 (28-100) U/L Lipase 19 L (22-51) U/L Urine Color (YELLOW) Urine Appearance (CLEAR) Urine pH (5.0-9.0) Ur Specific [place] (1.005-1.030) Urine Protein (NEGATIVE) Urine Glucose (UA) (NEGATIVE) Urine Ketones (NEGATIVE) Urine Occult Blood (NEGATIVE) Urine Nitrite (NEGATIVE) Urine Bilirubin (NEGATIVE) Urine Urobilinogen (0.2-1.0) mg/dL Ur Leukocyte Esterase (NEGATIVE) Urine RBC /HPF Urine WBC (0-5/HPF) /HPF Ur Epithelial Cells /HPF Urine Bacteria (0-FEW/HPF) /HPF Urine Mucus /LPF Urine Opiates Screen (NEGATIVE) Ur Oxycodone Screen (NEGATIVE) Urine Methadone Screen (NEGATIVE) Ur Barbiturates Screen (NEGATIVE) U Tricyclic Antidepress (NEGATIVE) Ur Phencyclidine Scrn (NEGATIVE) Ur Amphetamine Screen (NEGATIVE) U Methamphetamines Scrn (NEGATIVE) Urine MDMA Screen (NEGATIVE) U Benzodiazepines Scrn (NEGATIVE) Urine Cocaine Screen (NEGATIVE) U Marijuana (THC) Screen (NEGATIVE) Ethyl Alcohol < 5 mg/dL Meds: Medications Discontinued Medications Generic Name Dose Route Start Last Admin Trade Name Addy PRN Reason Stop Dose Admin Sodium Chloride 1,000 mls @ 999 mls/hr 11/29/16 16:22 11/29/16 16:37 Normal Saline IV 11/29/16 17:22 999 mls/hr .BOLUS ONE Administration Ondansetron HCl 4 mg 11/29/16 16:22 11/29/16 16:37 Zofran IV 11/29/16 16:23 4 mg ONETIME ONE Administration Departure - Departure Time of Disposition: 18:20 Disposition: Home, Self-Care 01 Condition: Fair Clinical Impression: Left low back pain Qualifiers: Chronicity: acute Sciatica presence: without sciatica Qualified Code(s): M54.5 - Low back pain - Discharge Information Instructions: Back Pain, Adult, [id number] Forms: ED Department Discharge Care Plan Goals: The patient and her mother were advised of the examination and lab results during the visit. The patient was given IV fluids, IV Zofran and IV Dilaudid while in the ED. The patient was given a script for Zofran ODT (4 mg) #20 to take 1 by mouth every 6 hours as needed for nausea. If the patient has any additional symptoms or concerns, the patient should follow-up with her primary care facility or return to the emergency department.
[2016-11-29] MEDS ORDERED: HYDROmorphone 1 MG/ML Syringe IVPUSH ONE (18:20)
[2016-11-29 18:30] VITALS: BP 103/59
== END 2016-11-29 18:34 | disposition home or self-care (01) ==
LOC: DL.ED 15:03
DX: M54.5 Low back pain (principal); G43.909 Migraine, unspecified, not intractable, without status migrainosus; Z88.1 Allergy status to other antibiotic agents; Z88.8 Allergy status to other drugs, medicaments and biological substances; Z88.6 Allergy status to analgesic agent; Z90.49 Acquired absence of other specified parts of digestive tract; Z87.891 Personal history of nicotine dependence
CPT/HCPCS: 36415; 80053; 80305; 81001; 82150; 83690; 85025; 96374; 96375; 99284; G0480; J1170; J2405; J7030

== ENCOUNTER 2017-01-05 19:01 | Emergency (ER) | payer MEDICAID, SELFPAY ==
[2017-01-05 19:15] VITALS: BP 112/59
[2017-01-05] MEDS ORDERED: Sodium Chloride 0.9% 1,000 ML IV ONE (19:27)
--- NOTE | 2017-01-05 19:35 | EDM.PDOC ---
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 concerned about blood infections and possibly Lyme & [place]. was here few weeks ago with esse ' negative pelvic US. pelvic pain continues. Right Suprapubic Pain Score (Numeric/FACES): 8 - Related Data Allergies Allergy/AdvReac Type Severity Reaction Status Date / Time celecoxib [From Celebrex] Allergy Hives Verified 01/05/17 19:12 erythromycin base Allergy Hives Verified 01/05/17 19:12 [Erythromycin Base] ibuprofen Allergy Swelling Verified 01/05/17 19:12 naproxen Allergy Airway Verified 01/05/17 19:12 Tightness sulfamethoxazole Allergy Hives Verified 01/05/17 19:19 [From Bactrim] trimethoprim [From Bactrim] Allergy Hives Verified 01/05/17 19:19 Home Meds: Home Meds . [No Known Home Meds] 01/05/17 [History] Past Medical History - Past Health History Medical/Surgical History: Denies Medical/Surgical History HEENT History: Reports: None Other HEENT History: wears corrective lenses Cardiovascular History: Reports: Other (See Below) Other Cardiovascular History: "heart stopped during surgery" Respiratory History: Reports: None Gastrointestinal History: Reports: Cholelithiasis Other Gastrointestinal History: diarrhea since 3 am Genitourinary History: Reports: Other (See Below) Other Genitourinary History: endometrosis, PCOS. 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 Psychiatric History: Reports: None Endocrine/Metabolic History: Reports: Other (See Below) Other Endocrine/Metabolic History: "insulin resistant" Hematologic History: Reports: None Immunologic History: Reports: None Oncologic (Cancer) History: Reports: Ovarian Dermatologic History: Reports: None - Infectious Disease History Infectious Disease History: Reports: None - Past Surgical History Head Surgeries/Procedures: Reports: None GI Surgical History: Reports: Appendectomy, Cholecystectomy, Other (See Below) Musculoskeletal Surgical History: Reports: None Social & Family History - Family History Family Medical History: Noncontributory Cardiac: Reports: None Respiratory: Reports: None GI: Reports: None Immunologic: Reports: None Dermatologic: Reports: None Oncologic: Reports: None - Tobacco Use Smoking Status *Q: Former Smoker Years of Tobacco use: 20 Packs/Tins Daily: 1 Used Tobacco, but Quit: Yes Month Tobacco Last Used: ? Second Hand Smoke Exposure: No - Caffeine Use Caffeine Use: Reports: None - Alcohol Use Days Per Week of Alcohol Use: 0 - Recreational Drug Use Recreational Drug Use: No - Living Situation & Occupation Living situation: Reports: with Family, Single Occupation: Unemployed ED ROS GENERAL - Review of Systems Review Of Systems: ROS reveals no pertinent complaints other than HPI. ED EXAM, GENERAL - Physical Exam Exam: See Below Exam Limited By: No Limitations General Appearance: Alert, WD/WN, Mild Distress, Other (crying) Ears: Hearing Grossly Normal Throat/Mouth: Normal Voice, No Airway Compromise Head: Atraumatic Neck: Non-Tender, Full Range of Motion Respiratory/Chest: No Respiratory Distress Cardiovascular: Regular Rate, Rhythm GI/Abdominal: Soft, Tender, Abnormal Bowel Sounds, Other (minimal RLQ discomfort , ?? palpable lumps, hyper BS.). No: Distended, Guarding, Rigid, Rebound, Hernia, Mass Neurological: Alert, Oriented, Normal Cognition, Normal Gait, No Motor/Sensory Deficits Psychiatric: Tearful Skin Exam: Warm, Dry, Normal Color Lymphatic: No Adenopathy Course - Vital Signs Last Recorded V/S: Last Vital Signs Temp 36.4 C 01/05/17 19:14 Pulse 84 01/05/17 19:14 Resp 18 01/05/17 19:14 BP 112/59 L 01/05/17 19:14 Pulse Ox 99 01/05/17 19:14 - Orders/Labs/Meds Orders: Active Orders 24 hr Category Date Time Status CULTURE BLOOD [BC] Stat Lab 01/05/17 19:35 Received LYME/B.BURGDORFERI IGG/IGM [REF] Stat Lab 01/05/17 19:35 Received [place] VIRUS IGM [REF] Stat Lab 01/05/17 19:35 Received HYDROmorphone [Dilaudid] Med 01/05/17 20:26 Once 1 mg IVPUSH ONETIME ONE Ondansetron [Zofran] Med 01/05/17 20:26 Once 4 mg IV ONETIME ONE Sodium Chloride 0.9% [Normal Saline] 1,000 ml Med 01/05/17 19:27 Active IV .BOLUS Medication Orders Sodium Chloride (Normal Saline) 1,000 mls @ 500 mls/hr IV .BOLUS ONE Stop: 01/05/17 21:26 Last Admin: 01/05/17 19:41 Dose: 500 mls/hr Labs: Laboratory Tests 01/05/17 01/05/17 01/05/17 Range/Units 19:35 19:35 19:35 WBC 8.4 (5.0-10.0) 10^3/uL RBC 4.63 (4.2-5.4) 10^6/uL Hgb 13.7 (12.0-16.0) g/dL Hct 41.2 (37.0-47.0) % MCV 89.0 (80-100) fL MCH 29.6 (27.0-34.0) pg MCHC 33.3 (33.0-35.0) g/dL Plt Count 310 (150-450) 10^3/uL Neut % (Auto) 55.9 (42.2-75.2) % Lymph % (Auto) 31.9 (20.5-50.1) % [place] % (Auto) 10.9 H (2-8) % Eos % (Auto) 1.1 (1.0-3.0) % Baso % (Auto) 0.2 (0.0-1.0) % Sodium 139 (135-145) mmol/L Potassium 3.9 (3.6-5.0) mmol/L Chloride 103 (101-111) mmol/L Carbon Dioxide 25.0 (21.0-31.0) mmol/L Anion Gap 14.9 BUN 15 (7-18) mg/dL Creatinine 0.6 (0.6-1.3) mg/dL Est Cr Clr Drug Dosing TNP Estimated GFR (MDRD) > 60 BUN/Creatinine Ratio 25.00 Glucose 98 (74-105) mg/dL Lactic Acid 0.9 (0.5-2.2) mmol/L Calcium 9.3 (8.4-10.2) mg/dl Total Bilirubin 0.4 (0.2-1.0) mg/dL AST 21 (10-42) IU/L ALT 17 (10-60) IU/L Alkaline Phosphatase 63 (42-121) IU/L Total Protein 7.6 (6.7-8.2) g/dl Albumin 4.3 (3.2-5.5) g/dl Globulin 3.3 Albumin/Globulin Ratio 1.30 Meds: Medications Generic Name Dose Route Start Last Admin Trade Name Addy PRN Reason Stop Dose Admin Sodium Chloride 1,000 mls @ 500 mls/hr 01/05/17 19:27 01/05/17 19:41 Normal Saline IV 01/05/17 21:26 500 mls/hr .BOLUS ONE Administration - Re-Assessments/Exams Free Text/Narrative Re-Assessment/Exam: 01/05/17 20:26 results discussed with pt & mother. Departure - Departure Time of Disposition: 20:27 Disposition: Home, Self-Care 01 Condition: Good Clinical Impression: Pelvic pain - Discharge Information Instructions: Abdominal Pain, Adult, [id number] Forms: ED Department Discharge Additional Instructions: 1) follow up with family doctor or clinic 2) recheck as needed 3) continue home meds - My Orders Last 24 Hours: My Active Orders 01/05/17 19:27 Sodium Chloride 0.9% [Normal Saline] 1,000 ml IV .BOLUS 01/05/17 19:35 CULTURE BLOOD [BC] Stat LYME/B.BURGDORFERI IGG/IGM [REF] Stat [place] VIRUS IGM [REF] Stat 01/05/17 20:26 HYDROmorphone [Dilaudid] 1 mg IVPUSH ONETIME ONE Ondansetron [Zofran] 4 mg IV ONETIME ONE - Assessment/Plan Last 24 Hours: My Active Orders 01/05/17 19:27 Sodium Chloride 0.9% [Normal Saline] 1,000 ml IV .BOLUS 01/05/17 19:35 CULTURE BLOOD [BC] Stat LYME/B.BURGDORFERI IGG/IGM [REF] Stat [place] VIRUS IGM [REF] Stat 01/05/17 20:26 HYDROmorphone [Dilaudid] 1 mg IVPUSH ONETIME ONE Ondansetron [Zofran] 4 mg IV ONETIME ONE
[2017-01-05 20:02] LABS: CHLORIDE,CL 103 mmol/L (101-111); SODIUM,NA 139 mmol/L (135-145)
[2017-01-05] MEDS ORDERED: Ondansetron 4 MG/2 ML SDV IV ONE (20:26)
[2017-01-05] MEDS ORDERED: HYDROmorphone 1 MG/ML Syringe IVPUSH ONE (20:26)
== END 2017-01-05 20:45 | disposition home or self-care (01) ==
LOC: DL.ED 19:01
DX: R10.2 Pelvic and perineal pain (principal); G43.909 Migraine, unspecified, not intractable, without status migrainosus; Z88.5 Allergy status to narcotic agent; Z88.2 Allergy status to sulfonamides; Z90.49 Acquired absence of other specified parts of digestive tract; Z87.891 Personal history of nicotine dependence
CPT/HCPCS: 80053; 83605; 85025; 86618; 86788; 87040; 96361; 96374; 96375; 99284; J1170; J2405; J7030; 36415; 86617

== ENCOUNTER 2017-01-19 09:32 | Emergency (ER) | payer MEDICAID, SELFPAY ==
[2017-01-19 09:47] VITALS: BP 120/62
[2017-01-19] MEDS ORDERED: HYDROmorphone 1 MG/ML Syringe IM ONE (10:03)
[2017-01-19] MEDS ORDERED: Promethazine 25 MG/ML SDV IM ONE (10:03)
--- NOTE | 2017-01-19 10:10 | EDM.PDOC ---
ED HPI GENERAL MEDICAL PROBLEM - General Chief Complaint: Headache Stated Complaint: HEADACHE [id number] Time Seen by Provider: 01/19/17 10:05 Source of Information: Reports: Patient, Family History Limitations: Reports: No Limitations - History of Present Illness INITIAL COMMENTS - FREE TEXT/NARRATIVE: Patient presents to the ER with c/o 10/10 headache. She states she has had the headache for "a few days". She has taken Tylenol but states this has not helped. She states she was diagnosed with Lyme disease last week. She states she took the first dose of Doxycycline that was prescribed and mother states her throat swelled up. She did take Benedryl, but did not seek medical care. She did not take another dose of the antibiotics. She states she has been having fever and chills, but denies nausea and vomiting. Onset: Gradual, Other ("a few days") Location: Reports: Head Quality: Reports: Ache, Throbbing Severity: Severe Improves with: Reports: None Worsens with: Reports: Other (light and sound) Associated Symptoms: Reports: No Other Symptoms, Fever/Chills Headache Pain Score (Numeric/FACES): 9 - Related Data Allergies Allergy/AdvReac Type Severity Reaction Status Date / Time celecoxib [From Celebrex] Allergy Hives Verified 01/19/17 09:45 doxycycline Allergy Airway Verified 01/19/17 10:26 Tightness erythromycin base Allergy Hives Verified 01/19/17 09:45 [Erythromycin Base] ibuprofen Allergy Swelling Verified 01/19/17 09:45 naproxen Allergy Airway Verified 01/19/17 09:45 Tightness sulfamethoxazole Allergy Hives Verified 01/19/17 09:45 [From Bactrim] trimethoprim [From Bactrim] Allergy Hives Verified 01/19/17 09:45 Home Meds: Home Meds . [No Known Home Meds] 01/05/17 [History] Past Medical History - Past Health History Medical/Surgical History: Denies Medical/Surgical History HEENT History: Reports: None Other HEENT History: wears corrective lenses Cardiovascular History: Reports: Other (See Below) Other Cardiovascular History: "heart stopped during surgery" Respiratory History: Reports: None Gastrointestinal History: Reports: Cholelithiasis Other Gastrointestinal History: diarrhea since 3 am Genitourinary History: Reports: Other (See Below) Other Genitourinary History: endometrosis, PCOS. 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 Psychiatric History: Reports: None Endocrine/Metabolic History: Reports: Other (See Below) Other Endocrine/Metabolic History: "insulin resistant" Hematologic History: Reports: None Immunologic History: Reports: None Oncologic (Cancer) History: Reports: Ovarian Dermatologic History: Reports: None - Infectious Disease History Infectious Disease History: Reports: None - Past Surgical History Head Surgeries/Procedures: Reports: None GI Surgical History: Reports: Appendectomy, Cholecystectomy Musculoskeletal Surgical History: Reports: None Social & Family History - Family History Family Medical History: Noncontributory Cardiac: Reports: None Respiratory: Reports: None GI: Reports: None Immunologic: Reports: None Dermatologic: Reports: None Oncologic: Reports: None - Tobacco Use Smoking Status *Q: Former Smoker Years of Tobacco use: 20 Packs/Tins Daily: 1 Used Tobacco, but Quit: Yes Month Tobacco Last Used: ? Second Hand Smoke Exposure: No - Caffeine Use Caffeine Use: Reports: None - Alcohol Use Days Per Week of Alcohol Use: 0 - Recreational Drug Use Recreational Drug Use: No - Living Situation & Occupation Living situation: Reports: with Family, Single Occupation: Unemployed ED ROS GENERAL - Review of Systems Review Of Systems: ROS reveals no pertinent complaints other than HPI. - Physical Exam Exam: See Below Exam Limited By: No Limitations General Appearance: Alert, WD/WN Eye Exam: Bilateral Eye: Normal Inspection, PERRL Ears: Normal External Exam Nose: Normal Inspection Throat/Mouth: Normal Inspection Head Exam: Atraumatic, Normocephalic Neck: Limited Range of Motion Respiratory/Chest: No Respiratory Distress, Lungs Clear, Normal Breath Sounds Cardiovascular: Normal Peripheral Pulses, Regular Rate, Rhythm GI/Abdominal: Normal Bowel Sounds, Soft, Non-Tender (Female) Exam: Deferred Rectal (Female) Exam: Deferred Neuro Exam (Abbreviated): Alert, Oriented, CN II-XII Intact, Normal Cognition, Normal Gait, No Motor/Sensory Deficits Back Exam: Normal Inspection, Full Range of Motion Extremities: Normal Inspection, Normal Range of Motion Psychiatric: Depressed Mood, Flat Affect, Tearful Skin Exam: Warm, Dry, Intact Course - Vital Signs Last Recorded V/S: Last Vital Signs Temp 98.4 F 01/19/17 09:45 Pulse 90 01/19/17 09:45 Resp 16 01/19/17 09:45 BP 120/62 01/19/17 09:45 Pulse Ox 100 01/19/17 09:45 - Orders/Labs/Meds Meds: Medications Discontinued Medications Generic Name Dose Route Start Last Admin Trade Name Addy PRN Reason Stop Dose Admin Hydromorphone HCl 1 mg 01/19/17 10:03 01/19/17 10:15 Dilaudid IM 01/19/17 10:04 1 mg ONETIME ONE Administration Promethazine HCl 25 mg 01/19/17 10:03 01/19/17 10:15 Phenergan IM 01/19/17 10:04 25 mg ONETIME ONE Administration Departure - Departure Time of Disposition: 10:07 Disposition: Home, Self-Care 01 Condition: Fair Clinical Impression: Lyme disease Headache Qualifiers: Headache type: unspecified Headache chronicity pattern: acute headache Intractability: intractable Qualified Code(s): R51 - Headache - Discharge Information Instructions: General Headache Without Cause, [id number], Lyme Disease Referrals: PCP,None [Primary Care Provider] - Forms: ED Department Discharge Additional Instructions: Rest Drink plenty of fluids Get prescription for antibiotics filled and take all until dose completed Follow up with primary care provider in 2-3 days Tylenol as needed for pain
== END 2017-01-19 10:29 | disposition home or self-care (01) ==
LOC: DL.ED 09:32
DX: A69.20 Lyme disease, unspecified (principal); Z88.8 Allergy status to other drugs, medicaments and biological substances; Z88.1 Allergy status to other antibiotic agents; Z88.2 Allergy status to sulfonamides; Z90.49 Acquired absence of other specified parts of digestive tract; Z87.891 Personal history of nicotine dependence
CPT/HCPCS: 96372; 99283; J1170; J2550

== ENCOUNTER 2017-01-20 15:33 | Emergency (ER) | payer MEDICAID, SELFPAY ==
[2017-01-20 15:55] VITALS: BP 108/55
--- NOTE | 2017-01-20 16:09 | EDM.PDOC ---
ED HPI GENERAL MEDICAL PROBLEM - General Chief Complaint: Headache Stated Complaint: SEVERE HEADACHE AND REACTION TO MEDS, [id number] Time Seen by Provider: 01/20/17 16:09 Source of Information: Reports: Patient - History of Present Illness INITIAL COMMENTS - FREE TEXT/NARRATIVE: 36 yo F is here with her mother for evaluation of headache. She has h/o chronic pain, chronic headaches, endometriosis, recent diagnosis of Lyme disease ( around end of December to around 01-12-17). For Lyme disease, she was prescribed Doxycycline but patient stopped taking it after a dose since she reportedly felt like her throat was swelling and felt she was breaking out in hives. Benadryl was given at home. She was prescribed Ceftin (Cefuroxime) yesterday but she has only taken one dose of that too as apparently similar symptoms of throat swelling and hives happened at home so benadryl was given at home yesterday. She states headache only improved with Dilaudid and Phenergan in the ER yesterday and pain returned at home last night. Headache is located in the back of her head; 9/10; sharp. Tylenol, hot pack, cold pack have been tried and are not helpful at home. Headache is now constant. T-max reportedly was 102F at home but she is afebrile here in the ED today. She has not had any falls/trauma/ injuries, vomiting, nausea. Denies filling prescription of her opioid medication. Head Pain Score (Numeric/FACES): 9 - Related Data Allergies Allergy/AdvReac Type Severity Reaction Status Date / Time ceftriaxone [From Rocephin] Allergy Hives Verified 01/20/17 15:56 cefuroxime [From Ceftin] Allergy Hives Verified 01/20/17 16:38 celecoxib [From Celebrex] Allergy Hives Verified 01/19/17 09:45 doxycycline Allergy Airway Verified 01/19/17 10:26 Tightness erythromycin base Allergy Hives Verified 01/19/17 09:45 [Erythromycin Base] ibuprofen Allergy Swelling Verified 01/19/17 09:45 naproxen Allergy Airway Verified 01/19/17 09:45 Tightness sulfamethoxazole Allergy Hives Verified 01/19/17 09:45 [From Bactrim] trimethoprim [From Bactrim] Allergy Hives Verified 01/19/17 09:45 Home Meds: Home Meds . [No Known Home Meds] 01/05/17 [History] Past Medical History - Past Health History Medical/Surgical History: Denies Medical/Surgical History HEENT History: Reports: None Other HEENT History: wears corrective lenses Cardiovascular History: Reports: Other (See Below) Other Cardiovascular History: "heart stopped during surgery" Respiratory History: Reports: None Gastrointestinal History: Reports: Cholelithiasis Other Gastrointestinal History: diarrhea since 3 am Genitourinary History: Reports: Other (See Below) Other Genitourinary History: endometrosis, PCOS. 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 Psychiatric History: Reports: None Endocrine/Metabolic History: Reports: Other (See Below) Other Endocrine/Metabolic History: "insulin resistant" Hematologic History: Reports: None Immunologic History: Reports: None Oncologic (Cancer) History: Reports: Ovarian Dermatologic History: Reports: None - Infectious Disease History Infectious Disease History: Reports: None - Past Surgical History Head Surgeries/Procedures: Reports: None GI Surgical History: Reports: Appendectomy, Cholecystectomy Musculoskeletal Surgical History: Reports: None Social & Family History - Family History Family Medical History: Noncontributory Cardiac: Reports: None Respiratory: Reports: None GI: Reports: None Immunologic: Reports: None Dermatologic: Reports: None Oncologic: Reports: None - Tobacco Use Smoking Status *Q: Never Smoker Years of Tobacco use: 20 Packs/Tins Daily: 1 Used Tobacco, but Quit: Yes Month Tobacco Last Used: ? Second Hand Smoke Exposure: No - Caffeine Use Caffeine Use: Reports: None - Alcohol Use Days Per Week of Alcohol Use: 0 - Recreational Drug Use Recreational Drug Use: No - Living Situation & Occupation Living situation: Reports: with Family, Single Occupation: Unemployed ED ROS GENERAL - Review of Systems Review Of Systems: See Below Constitutional: Reports: No Symptoms HEENT: Reports: No Symptoms Respiratory: Reports: No Symptoms Cardiovascular: Reports: No Symptoms Endocrine: Reports: No Symptoms GI/Abdominal: Reports: No Symptoms : Reports: No Symptoms Skin: Reports: No Symptoms Neurological: Reports: Headache - Physical Exam Exam: See Below Exam Limited By: No Limitations General Appearance: Alert, WD/WN, Other (Holding her head. Mild distress. Appears older than stated age.) Ears: Normal External Exam, Normal Canal, Hearing Grossly Normal, Normal TMs Nose: Normal Inspection Throat/Mouth: Normal Inspection, Normal Lips, No Airway Compromise Head Exam: Atraumatic, Normocephalic, Other (Nontender. ) Neck: Normal Inspection, Supple, Non-Tender, Full Range of Motion Respiratory/Chest: No Respiratory Distress, Lungs Clear, Normal Breath Sounds, No Accessory Muscle Use Cardiovascular: Normal Peripheral Pulses, Regular Rate, Rhythm, No Edema, No Murmur GI/Abdominal: Normal Bowel Sounds, Soft, Non-Tender Neuro Exam (Abbreviated): Alert, Oriented, CN II-XII Intact, Normal Cognition, Normal Gait, No Motor/Sensory Deficits Back Exam: Full Range of Motion Extremities: Normal Inspection, Normal Range of Motion, Non-Tender, No Pedal Edema Psychiatric: Flat Affect, Tearful Skin Exam: Warm, Dry Course - Vital Signs Last Recorded V/S: Last Vital Signs Temp 97.9 F 01/20/17 15:49 Pulse 93 01/20/17 15:49 Resp 16 01/20/17 15:49 BP 108/55 L 01/20/17 15:49 Pulse Ox 98 01/20/17 15:49 - Orders/Labs/Meds Orders: Active Orders 24 hr Category Date Time Status Sodium Chloride 0.9% [Normal Saline] 1,000 ml Med 01/20/17 16:45 Active IV ASDIRECTED Medication Orders Sodium Chloride (Normal Saline) 1,000 mls @ 100 mls/hr IV ASDIRECTED AAKASH Last Admin: 01/20/17 16:56 Dose: 100 mls/hr Meds: Medications Generic Name Dose Route Start Last Admin Trade Name Freq PRN Reason Stop Dose Admin Sodium Chloride 1,000 mls @ 100 mls/hr 01/20/17 16:45 01/20/17 16:56 Normal Saline IV 100 mls/hr ASDIRECTED AAKASH Administration Discontinued Medications Generic Name Dose Route Start Last Admin Trade Name Freq PRN Reason Stop Dose Admin Hydrocodone Bitart/Acetaminophen 1 tab 01/20/17 17:27 01/20/17 17:37 [place] 325-10 Mg PO 01/20/17 17:28 1 tab ONETIME ONE Administration Diphenhydramine HCl 25 mg 01/20/17 16:36 01/20/17 16:50 Benadryl PO 01/20/17 16:37 25 mg ONETIME ONE Administration Methylprednisolone Sodium Succinate 125 mg 01/20/17 16:34 Solu-Medrol IM 01/20/17 16:35 ONETIME ONE Methylprednisolone Sodium Succinate 125 mg 01/20/17 16:42 01/20/17 16:57 Solu-Medrol IVPUSH 01/20/17 16:43 125 mg ONETIME ONE Administration Promethazine HCl 25 mg 01/20/17 16:34 01/20/17 16:50 Phenergan IM 01/20/17 16:35 25 mg ONETIME ONE Administration - Re-Assessments/Exams Free Text/Narrative Re-Assessment/Exam: Solumedrol, Phenergan, Benadryl, 1L NS, 1 tab [place] tried for intervention. CT Head was not done since she has had excessive number of past CT scans / radiation exposure. And, she is neurologically intact. Departure - Departure Time of Disposition: 17:50 Disposition: Home, Self-Care 01 Condition: Fair Clinical Impression: Lyme disease Headache Qualifiers: Headache type: unspecified Headache chronicity pattern: unspecified pattern Intractability: intractable Qualified Code(s): R51 - Headache - Discharge Information Instructions: General Headache Without Cause, [id number], Preventing Mosquito -Borne Illnesses, Lyme Disease Referrals: Alissa John MD [Primary Care Provider] - Forms: ED Department Discharge Care Plan Goals: Due to several antibiotic allergies and recent Lyme diagnosis, please follow with Infectious Disease specialist in [place]. Please have your primary care provider (Lili Sanders NP) put in for a referral to see Infectious Disease specialist at [facility] in [place] (hospital phone number [phone]). Rest and stay well hydrated. Tylenol as need. - My Orders Last 24 Hours: My Active Orders 01/20/17 16:45 Sodium Chloride 0.9% [Normal Saline] 1,000 ml IV ASDIRECTED - Assessment/Plan Last 24 Hours: My Active Orders 01/20/17 16:45 Sodium Chloride 0.9% [Normal Saline] 1,000 ml IV ASDIRECTED
[2017-01-20] MEDS ORDERED: Promethazine 25 MG/ML SDV IM ONE (16:34)
[2017-01-20] MEDS ORDERED: methylPREDNISolone Sodium Succinate 125 MG/2 ML SDV IM ONE (16:34)
[2017-01-20] MEDS ORDERED: diphenhydrAMINE 25 MG Tab PO ONE (16:36)
[2017-01-20] MEDS ORDERED: methylPREDNISolone Sodium Succinate 125 MG/2 ML SDV IVPUSH ONE (16:42)
[2017-01-20] MEDS ORDERED: Sodium Chloride 0.9% 1,000 ML IV SCH (16:45)
[2017-01-20] MEDS ORDERED: Acetaminophen/HYDROcodone 325-10 MG Tab PO ONE (17:27)
== END 2017-01-20 18:16 | disposition home or self-care (01) ==
LOC: DL.ED 15:33
DX: A69.20 Lyme disease, unspecified (principal); Z86.73 Personal history of transient ischemic attack (TIA), and cerebral infarction without residual deficits; Z90.49 Acquired absence of other specified parts of digestive tract; Z87.891 Personal history of nicotine dependence; Z88.1 Allergy status to other antibiotic agents; Z88.2 Allergy status to sulfonamides; Z88.6 Allergy status to analgesic agent; Z88.8 Allergy status to other drugs, medicaments and biological substances
CPT/HCPCS: 96361; 96372; 96374; 99284; A9270; J2550; J2930; J7030

== ENCOUNTER 2017-01-21 20:24 | Emergency (ER) | payer MEDICAID, SELFPAY ==
[2017-01-21] MEDS ORDERED: Sodium Chloride 0.9% 1,000 ML IV ONE (22:38)
--- NOTE | 2017-01-21 22:44 | EDM.PDOC ---
ED HPI GENERAL MEDICAL PROBLEM - General Chief Complaint: Headache Stated Complaint: HEADACHE FOR 3 DAYS AND PAIN IN BACK Time Seen by Provider: 01/21/17 22:27 Source of Information: Reports: Patient History Limitations: Reports: No Limitations - History of Present Illness INITIAL COMMENTS - FREE TEXT/NARRATIVE: This 36 yo female patient reports to the ED with a 2 week history of a headache. The patient has been seen in this ED 2 times in the past 3 days (not including this visit). The patient's mother reports she was diagnosed with Lyme Disease, had an allergic reaction to Doxycycline, and was put on another antibiotic. The patient reports her headache has continued with no relief. Onset Date: 01/07/17 Duration: Constant Location: Reports: Head, Abdomen, Back Quality: Reports: Ache, Sharp Severity: Moderate Improves with: Reports: None Worsens with: Reports: None Associated Symptoms: Reports: No Other Symptoms Headache Pain Score (Numeric/FACES): 9 - Related Data Allergies Allergy/AdvReac Type Severity Reaction Status Date / Time ceftriaxone [From Rocephin] Allergy Hives Verified 01/21/17 20:57 cefuroxime [From Ceftin] Allergy Hives Verified 01/21/17 20:57 celecoxib [From Celebrex] Allergy Hives Verified 01/21/17 20:57 doxycycline Allergy Airway Verified 01/21/17 20:57 Tightness erythromycin base Allergy Hives Verified 01/21/17 20:57 [Erythromycin Base] ibuprofen Allergy Swelling Verified 01/21/17 20:57 naproxen Allergy Airway Verified 01/21/17 20:57 Tightness sulfamethoxazole Allergy Hives Verified 01/21/17 20:57 [From Bactrim] trimethoprim [From Bactrim] Allergy Hives Verified 01/21/17 20:57 Home Meds: Home Meds . [No Known Home Meds] 01/05/17 [History] Past Medical History - Past Health History Medical/Surgical History: Denies Medical/Surgical History HEENT History: Reports: None Other HEENT History: wears corrective lenses Cardiovascular History: Reports: Other (See Below) Other Cardiovascular History: "heart stopped during surgery" Respiratory History: Reports: None Gastrointestinal History: Reports: Cholelithiasis Other Gastrointestinal History: diarrhea since 3 am Genitourinary History: Reports: Other (See Below) Other Genitourinary History: endometrosis, PCOS. 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 Psychiatric History: Reports: None Endocrine/Metabolic History: Reports: Other (See Below) Other Endocrine/Metabolic History: "insulin resistant" Hematologic History: Reports: None Immunologic History: Reports: None Oncologic (Cancer) History: Reports: Ovarian Dermatologic History: Reports: None - Infectious Disease History Infectious Disease History: Reports: None - Past Surgical History Head Surgeries/Procedures: Reports: None GI Surgical History: Reports: Appendectomy, Cholecystectomy Musculoskeletal Surgical History: Reports: None Social & Family History - Family History Family Medical History: Noncontributory Cardiac: Reports: None Respiratory: Reports: None GI: Reports: None Immunologic: Reports: None Dermatologic: Reports: None Oncologic: Reports: None - Tobacco Use Smoking Status *Q: Unknown Ever Smoked Years of Tobacco use: 20 Packs/Tins Daily: 1 Used Tobacco, but Quit: Yes Month Tobacco Last Used: ? Second Hand Smoke Exposure: No - Caffeine Use Caffeine Use: Reports: None - Alcohol Use Days Per Week of Alcohol Use: 0 - Recreational Drug Use Recreational Drug Use: No - Living Situation & Occupation Living situation: Reports: with Family, Single Occupation: Unemployed ED ROS GENERAL - Review of Systems Review Of Systems: ROS reveals no pertinent complaints other than HPI. - Physical Exam Exam: See Below Exam Limited By: No Limitations General Appearance: Alert, WD/WN, Moderate Distress, Thin Eye Exam: Bilateral Eye: EOMI, Normal Inspection, PERRL Ears: Normal External Exam, Normal Canal, Hearing Grossly Normal, Normal TMs Nose: Normal Inspection, Normal Mucosa, No Blood Throat/Mouth: Normal Inspection, Normal Lips, Normal Teeth, Normal Gums, Normal Oropharynx, Normal Voice, No Airway Compromise Head Exam: Atraumatic, Normocephalic Neck: Normal Inspection, Supple, Non-Tender, Full Range of Motion Respiratory/Chest: No Respiratory Distress, Lungs Clear, Normal Breath Sounds, No Accessory Muscle Use, Chest Non-Tender Cardiovascular: Normal Peripheral Pulses, Regular Rate, Rhythm, No Edema, No Gallop, No JVD, No Murmur, No Rub GI/Abdominal: Normal Bowel Sounds, Soft, No Organomegaly, No Distention, No Abnormal Bruit, No Mass (Female) Exam: Deferred Rectal (Female) Exam: Deferred Neuro Exam (Abbreviated): Alert, Oriented, CN II-XII Intact, Normal Cognition, Normal Gait, Normal Reflexes, No Motor/Sensory Deficits Back Exam: Normal Inspection, Full Range of Motion, NT Extremities: Normal Inspection, Normal Range of Motion, Non-Tender, No Pedal Edema, Normal Capillary Refill Psychiatric: Depressed Mood, Flat Affect Skin Exam: Warm, Dry, Intact, Normal Color, No Rash Course - Vital Signs Last Recorded V/S: Last Vital Signs Temp 36.9 C 01/21/17 20:53 Pulse 103 H 01/21/17 20:53 Resp 16 01/21/17 20:53 BP 120/63 01/21/17 20:53 Pulse Ox 100 01/21/17 20:53 - Orders/Labs/Meds Orders: Active Orders 24 hr Category Date Time Status CULTURE BLOOD [BC] Stat Lab 01/21/17 22:50 Received CULTURE BLOOD [BC] Stat Lab 01/21/17 22:55 Received HYDROmorphone [Dilaudid] Med 01/21/17 23:58 Once 1 mg IM ONETIME ONE Blood Culture x2 Reflex Set [OM.PC] Stat Oth 01/21/17 22:34 Ordered Labs: Laboratory Tests 01/21/17 01/21/17 01/21/17 Range/Units 22:40 22:40 22:50 WBC (5.0-10.0) 10^3/uL RBC (4.2-5.4) 10^6/uL Hgb (12.0-16.0) g/dL Hct (37.0-47.0) % MCV (80-100) fL MCH (27.0-34.0) pg MCHC (33.0-35.0) g/dL Plt Count (150-450) 10^3/uL Neut % (Auto) (42.2-75.2) % Lymph % (Auto) (20.5-50.1) % [place] % (Auto) (2-8) % Eos % (Auto) (1.0-3.0) % Baso % (Auto) (0.0-1.0) % Sodium (135-145) mmol/L Potassium (3.6-5.0) mmol/L Chloride (101-111) mmol/L Carbon Dioxide (21.0-31.0) mmol/L Anion Gap BUN (7-18) mg/dL Creatinine (0.6-1.3) mg/dL Est Cr Clr Drug Dosing Estimated GFR (MDRD) BUN/Creatinine Ratio Glucose (74-105) mg/dL Lactic Acid 0.7 (0.5-2.2) mmol/L Calcium (8.4-10.2) mg/dl Total Bilirubin (0.2-1.0) mg/dL AST (10-42) IU/L ALT (10-60) IU/L Alkaline Phosphatase (42-121) IU/L Total Protein (6.7-8.2) g/dl Albumin (3.2-5.5) g/dl Globulin Albumin/Globulin Ratio Urine Color Yellow (YELLOW) Urine Appearance Slightly cloudy (CLEAR) Urine pH 5.5 (5.0-9.0) Ur Specific [place] 1.025 (1.005-1.030) Urine Protein 30 H (NEGATIVE) Urine Glucose (UA) Negative (NEGATIVE) Urine Ketones Trace H (NEGATIVE) Urine Occult Blood Negative (NEGATIVE) Urine Nitrite Negative (NEGATIVE) Urine Bilirubin Small H (NEGATIVE) Urine Urobilinogen 0.2 (0.2-1.0) mg/dL Ur Leukocyte Esterase Negative (NEGATIVE) Urine RBC 0-5 /HPF Urine WBC 0-5 (0-5/HPF) /HPF Ur Epithelial Cells Moderate H /HPF Calcium Oxalate Crystal Moderate H /HPF Urine Bacteria Moderate H (0-FEW/HPF) /HPF Urine Mucus Many H /LPF Urine Yeast Few H (0/HPF) /HPF Urine Opiates Screen Positive H (NEGATIVE) Ur Oxycodone Screen Positive H (NEGATIVE) Urine Methadone Screen Negative (NEGATIVE) Ur Barbiturates Screen Negative (NEGATIVE) U Tricyclic Antidepress Positive H (NEGATIVE) Ur Phencyclidine Scrn Negative (NEGATIVE) Ur Amphetamine Screen Negative (NEGATIVE) U Methamphetamines Scrn Negative (NEGATIVE) Urine MDMA Screen Negative (NEGATIVE) U Benzodiazepines Scrn Negative (NEGATIVE) Urine Cocaine Screen Negative (NEGATIVE) U Marijuana (THC) Screen Positive H (NEGATIVE) 01/21/17 01/21/17 Range/Units 22:55 22:55 WBC 12.7 H (5.0-10.0) 10^3/uL RBC 4.71 (4.2-5.4) 10^6/uL Hgb 13.9 (12.0-16.0) g/dL Hct 41.9 (37.0-47.0) % MCV 89.0 (80-100) fL MCH 29.5 (27.0-34.0) pg MCHC 33.2 (33.0-35.0) g/dL Plt Count 271 (150-450) 10^3/uL Neut % (Auto) 61.2 (42.2-75.2) % Lymph % (Auto) 29.1 (20.5-50.1) % [place] % (Auto) 8.9 H (2-8) % Eos % (Auto) 0.6 L (1.0-3.0) % Baso % (Auto) 0.2 (0.0-1.0) % Sodium 141 (135-145) mmol/L Potassium 3.3 L (3.6-5.0) mmol/L Chloride 105 (101-111) mmol/L Carbon Dioxide 26.0 (21.0-31.0) mmol/L Anion Gap 13.3 BUN 18 (7-18) mg/dL Creatinine 0.7 (0.6-1.3) mg/dL Est Cr Clr Drug Dosing TNP Estimated GFR (MDRD) > 60 BUN/Creatinine Ratio 25.71 Glucose 87 (74-105) mg/dL Lactic Acid (0.5-2.2) mmol/L Calcium 9.3 (8.4-10.2) mg/dl Total Bilirubin 0.5 (0.2-1.0) mg/dL AST 37 (10-42) IU/L ALT 34 (10-60) IU/L Alkaline Phosphatase 58 (42-121) IU/L Total Protein 7.8 (6.7-8.2) g/dl Albumin 4.5 (3.2-5.5) g/dl Globulin 3.3 Albumin/Globulin Ratio 1.36 Urine Color (YELLOW) Urine Appearance (CLEAR) Urine pH (5.0-9.0) Ur Specific [place] (1.005-1.030) Urine Protein (NEGATIVE) Urine Glucose (UA) (NEGATIVE) Urine Ketones (NEGATIVE) Urine Occult Blood (NEGATIVE) Urine Nitrite (NEGATIVE) Urine Bilirubin (NEGATIVE) Urine Urobilinogen (0.2-1.0) mg/dL Ur Leukocyte Esterase (NEGATIVE) Urine RBC /HPF Urine WBC (0-5/HPF) /HPF Ur Epithelial Cells /HPF Calcium Oxalate Crystal /HPF Urine Bacteria (0-FEW/HPF) /HPF Urine Mucus /LPF Urine Yeast (0/HPF) /HPF Urine Opiates Screen (NEGATIVE) Ur Oxycodone Screen (NEGATIVE) Urine Methadone Screen (NEGATIVE) Ur Barbiturates Screen (NEGATIVE) U Tricyclic Antidepress (NEGATIVE) Ur Phencyclidine Scrn (NEGATIVE) Ur Amphetamine Screen (NEGATIVE) U Methamphetamines Scrn (NEGATIVE) Urine MDMA Screen (NEGATIVE) U Benzodiazepines Scrn (NEGATIVE) Urine Cocaine Screen (NEGATIVE) U Marijuana (THC) Screen (NEGATIVE) Meds: Medications Discontinued Medications Generic Name Dose Route Start Last Admin Trade Name Freq PRN Reason Stop Dose Admin Hydromorphone HCl 1 mg 01/21/17 23:29 01/21/17 23:36 Dilaudid IVPUSH 01/21/17 23:30 1 mg ONETIME ONE Administration Sodium Chloride 1,000 mls @ 999 mls/hr 01/21/17 22:38 01/21/17 22:54 Normal Saline IV 01/21/17 23:38 999 mls/hr .BOLUS ONE Administration Ondansetron HCl 4 mg 01/21/17 23:29 01/21/17 23:36 Zofran IV 01/21/17 23:30 4 mg ONETIME ONE Administration Departure - Departure Time of Disposition: 23:59 Disposition: Home, Self-Care 01 Condition: Fair Clinical Impression: Lyme disease Headache Qualifiers: Headache type: unspecified Headache chronicity pattern: unspecified pattern Intractability: intractable Qualified Code(s): R51 - Headache - Discharge Information Instructions: Migraine Headache, [id number], Lyme Disease Forms: ED Department Discharge Care Plan Goals: The patient and her mother were advised of the examination and lab results during the visit. The patient was given an IV dose of Zofran (4 mg), IV Dilaudid (1 mg) and IM Dilaudid (1 mg) while in the ED. The patient was advised to follow-up with infectious disease for the Lyme Disease, Neurology for the headaches and primary care for management of her multiple health issues. If the patient has any additional symptoms or concerns, the patient should visit a primary care facility or return to the emergency department. - My Orders Last 24 Hours: My Active Orders 01/21/17 22:34 Blood Culture x2 Reflex Set [OM.PC] Stat 01/21/17 22:50 CULTURE BLOOD [BC] Stat 01/21/17 22:55 CULTURE BLOOD [BC] Stat 01/21/17 23:58 HYDROmorphone [Dilaudid] 1 mg IM ONETIME ONE - Assessment/Plan Last 24 Hours: My Active Orders 01/21/17 22:34 Blood Culture x2 Reflex Set [OM.PC] Stat 01/21/17 22:50 CULTURE BLOOD [BC] Stat 01/21/17 22:55 CULTURE BLOOD [BC] Stat 01/21/17 23:58 HYDROmorphone [Dilaudid] 1 mg IM ONETIME ONE
[2017-01-21 23:19] LABS: CHLORIDE,CL 105 mmol/L (101-111); SODIUM,NA 141 mmol/L (135-145)
[2017-01-21] MEDS ORDERED: Ondansetron 4 MG/2 ML SDV IV ONE (23:29)
[2017-01-21] MEDS ORDERED: HYDROmorphone 1 MG/ML Syringe IVPUSH ONE (23:29)
[2017-01-21] MEDS ORDERED: HYDROmorphone 1 MG/ML Syringe IM ONE (23:58)
[2017-01-22 00:10] VITALS: BP 103/51
== END 2017-01-22 00:12 | disposition home or self-care (01) ==
LOC: DL.ED 20:24
DX: A69.20 Lyme disease, unspecified (principal); G43.909 Migraine, unspecified, not intractable, without status migrainosus; Z88.8 Allergy status to other drugs, medicaments and biological substances; Z88.2 Allergy status to sulfonamides; Z90.49 Acquired absence of other specified parts of digestive tract; Z88.1 Allergy status to other antibiotic agents
CPT/HCPCS: 36415; 80053; 80305; 81001; 83605; 85025; 87040; 96365; 96375; 96376; 99283; J1170; J2405; J7030

== ENCOUNTER 2017-03-04 18:48 | Emergency (ER) | payer MEDICAID, OTHER, SELFPAY ==
[2017-03-04] MEDS ORDERED: Acetaminophen/HYDROcodone 325-10 MG Tab PO ONE (18:49)
[2017-03-04 19:03] VITALS: BP 125/72
[2017-03-04] MEDS ORDERED: HYDROmorphone 1 MG/ML Syringe IM ONE (19:24)
[2017-03-04] MEDS ORDERED: Promethazine 25 MG/ML SDV IM ONE (19:24)
--- NOTE | 2017-03-04 19:28 | EDM.PDOC ---
ED HPI GENERAL MEDICAL PROBLEM - General Chief Complaint: Headache Stated Complaint: HEADACHES [id number] Time Seen by Provider: 03/04/17 19:25 Source of Information: Reports: Patient, Family History Limitations: Reports: No Limitations - History of Present Illness INITIAL COMMENTS - FREE TEXT/NARRATIVE: gives recurrent h/o migraines. explained to pt re' limitations of pain management in ER in [place]. 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: Acetaminophen, Cold Therapy Headache Pain Score (Numeric/FACES): 9 - Related Data Allergies Allergy/AdvReac Type Severity Reaction Status Date / Time ceftriaxone [From Rocephin] Allergy Hives Verified 03/04/17 18:53 cefuroxime [From Ceftin] Allergy Hives Verified 03/04/17 18:53 celecoxib [From Celebrex] Allergy Hives Verified 03/04/17 18:53 doxycycline Allergy Airway Verified 03/04/17 18:53 Tightness erythromycin base Allergy Hives Verified 03/04/17 18:53 [Erythromycin Base] ibuprofen Allergy Swelling Verified 03/04/17 18:53 naproxen Allergy Airway Verified 03/04/17 18:53 Tightness sulfamethoxazole Allergy Hives Verified 03/04/17 18:53 [From Bactrim] trimethoprim [From Bactrim] Allergy Hives Verified 03/04/17 18:53 Home Meds: Home Meds . [No Known Home Meds] 01/05/17 [History] Past Medical History - Past Health History Medical/Surgical History: Denies Medical/Surgical History HEENT History: Reports: None Other HEENT History: wears corrective lenses Cardiovascular History: Reports: Other (See Below) Other Cardiovascular History: "heart stopped during surgery" Respiratory History: Reports: None Gastrointestinal History: Reports: Cholelithiasis Other Gastrointestinal History: diarrhea since 3 am Genitourinary History: Reports: Other (See Below) Other Genitourinary History: endometrosis, PCOS. 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 Psychiatric History: Reports: None Endocrine/Metabolic History: Reports: Other (See Below) Other Endocrine/Metabolic History: "insulin resistant" Hematologic History: Reports: None Immunologic History: Reports: None Oncologic (Cancer) History: Reports: Ovarian Dermatologic History: Reports: None - Infectious Disease History Infectious Disease History: Reports: None - Past Surgical History Head Surgeries/Procedures: Reports: None GI Surgical History: Reports: Appendectomy, Cholecystectomy Musculoskeletal Surgical History: Reports: None Social & Family History - Family History Family Medical History: Noncontributory Cardiac: Reports: None Respiratory: Reports: None GI: Reports: None Immunologic: Reports: None Dermatologic: Reports: None Oncologic: Reports: None - Tobacco Use Smoking Status *Q: Unknown Ever Smoked Years of Tobacco use: 20 Packs/Tins Daily: 1 Used Tobacco, but Quit: Yes Month Tobacco Last Used: ? Second Hand Smoke Exposure: No - Caffeine Use Caffeine Use: Reports: None - Alcohol Use Days Per Week of Alcohol Use: 0 - Recreational Drug Use Recreational Drug Use: No - Living Situation & Occupation Living situation: Reports: with Family, Single Occupation: Unemployed ED ROS GENERAL - Review of Systems Review Of Systems: ROS reveals no pertinent complaints other than HPI. - Physical Exam Exam: See Below Exam Limited By: No Limitations General Appearance: Alert, WD/WN, Mild Distress, Moderate Distress, Other ( crying) Eye Exam: Bilateral Eye: PERRL (pupils ER @ 4mm) Ears: Hearing Grossly Normal Throat/Mouth: Normal Voice, No Airway Compromise Head Exam: Atraumatic Neck: Non-Tender, Full Range of Motion Respiratory/Chest: No Respiratory Distress Cardiovascular: Regular Rate, Rhythm GI/Abdominal: Soft, Non-Tender Neuro Exam (Abbreviated): Alert, Oriented, Normal Cognition, Normal Gait, No Motor/Sensory Deficits Psychiatric: Tearful Skin Exam: Warm, Dry, Normal Color Course - Vital Signs Last Recorded V/S: Last Vital Signs Temp 37.6 C 03/04/17 19:02 Pulse 85 03/04/17 19:02 Resp 16 03/04/17 19:02 BP 125/72 03/04/17 19:02 Pulse Ox 99 03/04/17 19:02 - Orders/Labs/Meds Meds: Medications Discontinued Medications Generic Name Dose Route Start Last Admin Trade Name Freq PRN Reason Stop Dose Admin Hydrocodone Bitart/Acetaminophen Confirm 03/04/17 19:48 03/04/17 19:51 [place] 325-10 Mg Administered 03/04/17 19:49 Not Given Dose 1 tab .ROUTE .STK-MED ONE Hydromorphone HCl 1 mg 03/04/17 19:24 03/04/17 19:41 Dilaudid IM 03/04/17 19:25 1 mg ONETIME ONE Administration Promethazine HCl 25 mg 03/04/17 19:24 03/04/17 19:40 Phenergan IM 03/04/17 19:25 25 mg ONETIME ONE Administration Departure - Departure Time of Disposition: 19:50 Disposition: Home, Self-Care 01 Condition: Good Clinical Impression: Migraine aura, persistent, intractable - Discharge Information Instructions: Recurrent Migraine Headache, [id number] Referrals: PCP,None [Primary Care Provider] - Forms: ED Department Discharge Additional Instructions: 1) rest as much as possible 2) follow up at clinic
[2017-03-04] MEDS ORDERED: Acetaminophen/HYDROcodone 325-10 MG Tab ONE (19:48)
== END 2017-03-04 19:52 | disposition home or self-care (01) ==
LOC: DL.ED 18:48
DX: G43.519 Persistent migraine aura without cerebral infarction, intractable, without status migrainosus (principal); Z88.1 Allergy status to other antibiotic agents; Z88.2 Allergy status to sulfonamides; Z88.6 Allergy status to analgesic agent; Z88.8 Allergy status to other drugs, medicaments and biological substances
CPT/HCPCS: 96372; 99283; J1170; J2550; A9270-GY

== ENCOUNTER 2017-03-06 16:12 | Emergency (ER) | payer MEDICAID, OTHER, SELFPAY ==
[2017-03-06 16:21] VITALS: BP 109/69
--- NOTE | 2017-03-06 16:35 | EDM.PDOC ---
ED HPI GENERAL MEDICAL PROBLEM - General Chief Complaint: Headache Stated Complaint: LEFT EYE CANT SEE,SHAHZAD, [id number] Time Seen by Provider: 03/06/17 16:34 Source of Information: Reports: Patient, Family, RN, RN Notes Reviewed History Limitations: Reports: No Limitations - History of Present Illness INITIAL COMMENTS - FREE TEXT/NARRATIVE: Patient presents to the ER with her mother c/o severe headache that started about 1/2 hour ago. She states she cannot see out of her right eye. She states this headache did not come on like a migraine. She states she had a fever yesterday, and vomited one time this morning, although she denies nausea at this time. Mother states she was seen in [facility] at the ER about 2 months ago. At that time, a lumbar puncture was completed. She states they were told there to continue being seen in the ER until they can be seen by neuro. Onset Date: 03/06/17 Headache Pain Score (Numeric/FACES): 9 - Related Data Allergies Allergy/AdvReac Type Severity Reaction Status Date / Time ceftriaxone [From Rocephin] Allergy Hives Verified 03/06/17 16:27 cefuroxime [From Ceftin] Allergy Hives Verified 03/06/17 16:27 celecoxib [From Celebrex] Allergy Hives Verified 03/06/17 16:27 doxycycline Allergy Airway Verified 03/06/17 16:27 Tightness erythromycin base Allergy Hives Verified 03/06/17 16:27 [Erythromycin Base] ibuprofen Allergy Swelling Verified 03/06/17 16:27 naproxen Allergy Airway Verified 03/06/17 16:27 Tightness sulfamethoxazole Allergy Hives Verified 03/06/17 16:27 [From Bactrim] trimethoprim [From Bactrim] Allergy Hives Verified 03/06/17 16:27 Home Meds: Home Meds . [No Known Home Meds] 01/05/17 [History] Past Medical History - Past Health History Medical/Surgical History: Denies Medical/Surgical History HEENT History: Reports: Impaired Vision Other HEENT History: wears corrective lenses Cardiovascular History: Reports: Other (See Below) Other Cardiovascular History: "heart stopped during surgery" Respiratory History: Reports: None Gastrointestinal History: Reports: Cholelithiasis Other Gastrointestinal History: diarrhea since 3 am Genitourinary History: Reports: Other (See Below) Other Genitourinary History: endometrosis, PCOS. 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 Psychiatric History: Reports: None Endocrine/Metabolic History: Reports: Other (See Below) Other Endocrine/Metabolic History: "insulin resistant" Hematologic History: Reports: None Immunologic History: Reports: None Oncologic (Cancer) History: Reports: Ovarian Dermatologic History: Reports: None - Infectious Disease History Infectious Disease History: Reports: None - Past Surgical History Head Surgeries/Procedures: Reports: None GI Surgical History: Reports: Appendectomy, Cholecystectomy Musculoskeletal Surgical History: Reports: None Social & Family History - Family History Family Medical History: Noncontributory Cardiac: Reports: None Respiratory: Reports: None GI: Reports: None Immunologic: Reports: None Dermatologic: Reports: None Oncologic: Reports: None - Tobacco Use Smoking Status *Q: Unknown Ever Smoked Years of Tobacco use: 20 Packs/Tins Daily: 1 Used Tobacco, but Quit: Yes Month Tobacco Last Used: ? Second Hand Smoke Exposure: No - Caffeine Use Caffeine Use: Reports: None - Alcohol Use Days Per Week of Alcohol Use: 0 - Recreational Drug Use Recreational Drug Use: No - Living Situation & Occupation Living situation: Reports: with Family, Single Occupation: Unemployed ED ROS GENERAL - Review of Systems Review Of Systems: ROS reveals no pertinent complaints other than HPI. - Physical Exam Exam: See Below Exam Limited By: Other (pt looks to her mother for answers to questions) General Appearance: Alert, Moderate Distress Eye Exam: Bilateral Eye: Normal Inspection Ears: Normal External Exam, Hearing Grossly Normal Nose: Normal Inspection Throat/Mouth: Normal Inspection, Normal Voice, No Airway Compromise Head Exam: Atraumatic, Normocephalic Neck: Normal Inspection, Supple, Non-Tender, Full Range of Motion Respiratory/Chest: No Respiratory Distress, Lungs Clear, Normal Breath Sounds, No Accessory Muscle Use, Chest Non-Tender Cardiovascular: Normal Peripheral Pulses, Regular Rate, Rhythm, No Edema, No Gallop, No JVD, No Murmur, No Rub GI/Abdominal: Normal Bowel Sounds, Soft, Non-Tender (Female) Exam: Deferred Rectal (Female) Exam: Deferred Neuro Exam (Abbreviated): Alert, Oriented, Normal Cognition, Normal Gait, Slow to Respond Back Exam: Normal Inspection, Full Range of Motion Extremities: Normal Inspection, Normal Range of Motion, Non-Tender, No Pedal Edema, Normal Capillary Refill Psychiatric: Depressed Mood, Flat Affect, Tearful Skin Exam: Warm, Dry, Intact, Normal Color, No Rash Course - Vital Signs Last Recorded V/S: Last Vital Signs Temp 99.3 F 03/06/17 16:20 Pulse 97 03/06/17 16:20 Resp 16 03/06/17 16:20 BP 109/69 03/06/17 16:20 Pulse Ox 98 03/06/17 16:20 - Orders/Labs/Meds Orders: Active Orders 24 hr Category Date Time Status Peripheral IV Care [RC] . DIRECTED Care 03/06/17 16:41 Active HYDROmorphone [Dilaudid] Med 03/06/17 19:11 Once 1 mg IVPUSH ONETIME ONE Sodium Chloride 0.9% [Saline Flush] Med 03/06/17 16:41 Active 10 ml FLUSH ASDIRECTED PRN Peripheral IV Insertion Adult [OM.PC] Stat Oth 03/06/17 16:41 Ordered Medication Orders Sodium Chloride (Saline Flush) 10 ml FLUSH ASDIRECTED PRN PRN Reason: Keep Vein Open Last Admin: 03/06/17 16:53 Dose: 10 ml Labs: Laboratory Tests 03/06/17 03/06/17 03/06/17 Range/Units 16:50 16:50 17:10 WBC 10.3 H (5.0-10.0) 10^3/uL RBC 4.67 (4.2-5.4) 10^6/uL Hgb 14.0 (12.0-16.0) g/dL Hct 41.5 (37.0-47.0) % MCV 88.9 (80-100) fL MCH 30.0 (27.0-34.0) pg MCHC 33.7 (33.0-35.0) g/dL Plt Count 291 (150-450) 10^3/uL Neut % (Auto) 72.6 (42.2-75.2) % Lymph % (Auto) 19.3 L (20.5-50.1) % [place] % (Auto) 7.2 (2-8) % Eos % (Auto) 0.6 L (1.0-3.0) % Baso % (Auto) 0.3 (0.0-1.0) % Sodium 141 (135-145) mmol/L Potassium 3.7 (3.6-5.0) mmol/L Chloride 103 (101-111) mmol/L Carbon Dioxide 26.0 (21.0-31.0) mmol/L Anion Gap 15.7 BUN 12 (7-18) mg/dL Creatinine 0.6 (0.6-1.3) mg/dL Est Cr Clr Drug Dosing 107.77 mL/min Estimated GFR (MDRD) > 60 BUN/Creatinine Ratio 20.00 Glucose 87 (74-105) mg/dL Calcium 9.7 (8.4-10.2) mg/dl Total Bilirubin 0.6 (0.2-1.0) mg/dL AST 37 (10-42) IU/L ALT 27 (10-60) IU/L Alkaline Phosphatase 65 (42-121) IU/L Total Protein 7.7 (6.7-8.2) g/dl Albumin 4.6 (3.2-5.5) g/dl Globulin 3.1 Albumin/Globulin Ratio 1.48 Urine Color (YELLOW) Urine Appearance (CLEAR) Urine pH (5.0-9.0) Ur Specific [place] (1.005-1.030) Urine Protein (NEGATIVE) Urine Glucose (UA) (NEGATIVE) Urine Ketones (NEGATIVE) Urine Occult Blood (NEGATIVE) Urine Nitrite (NEGATIVE) Urine Bilirubin (NEGATIVE) Urine Urobilinogen (0.2-1.0) mg/dL Ur Leukocyte Esterase (NEGATIVE) Urine RBC /HPF Urine WBC (0-5/HPF) /HPF Ur Epithelial Cells /HPF Amorphous Sediment (0/HPF) /HPF Urine Bacteria (0-FEW/HPF) /HPF Urine Mucus /LPF Urine HCG, Qual Negative Urine Opiates Screen (NEGATIVE) Ur Oxycodone Screen (NEGATIVE) Urine Methadone Screen (NEGATIVE) Ur Barbiturates Screen (NEGATIVE) U Tricyclic Antidepress (NEGATIVE) Ur Phencyclidine Scrn (NEGATIVE) Ur Amphetamine Screen (NEGATIVE) U Methamphetamines Scrn (NEGATIVE) Urine MDMA Screen (NEGATIVE) U Benzodiazepines Scrn (NEGATIVE) Urine Cocaine Screen (NEGATIVE) U Marijuana (THC) Screen (NEGATIVE) 03/06/17 03/06/17 Range/Units 17:10 17:10 WBC (5.0-10.0) 10^3/uL RBC (4.2-5.4) 10^6/uL Hgb (12.0-16.0) g/dL Hct (37.0-47.0) % MCV (80-100) fL MCH (27.0-34.0) pg MCHC (33.0-35.0) g/dL Plt Count (150-450) 10^3/uL Neut % (Auto) (42.2-75.2) % Lymph % (Auto) (20.5-50.1) % [place] % (Auto) (2-8) % Eos % (Auto) (1.0-3.0) % Baso % (Auto) (0.0-1.0) % Sodium (135-145) mmol/L Potassium (3.6-5.0) mmol/L Chloride (101-111) mmol/L Carbon Dioxide (21.0-31.0) mmol/L Anion Gap BUN (7-18) mg/dL Creatinine (0.6-1.3) mg/dL Est Cr Clr Drug Dosing mL/min Estimated GFR (MDRD) BUN/Creatinine Ratio Glucose (74-105) mg/dL Calcium (8.4-10.2) mg/dl Total Bilirubin (0.2-1.0) mg/dL AST (10-42) IU/L ALT (10-60) IU/L Alkaline Phosphatase (42-121) IU/L Total Protein (6.7-8.2) g/dl Albumin (3.2-5.5) g/dl Globulin Albumin/Globulin Ratio Urine Color Yellow (YELLOW) Urine Appearance Slightly cloudy (CLEAR) Urine pH 8.5 (5.0-9.0) Ur Specific [place] 1.020 (1.005-1.030) Urine Protein Trace H (NEGATIVE) Urine Glucose (UA) Negative (NEGATIVE) Urine Ketones Negative (NEGATIVE) Urine Occult Blood Negative (NEGATIVE) Urine Nitrite Negative (NEGATIVE) Urine Bilirubin Negative (NEGATIVE) Urine Urobilinogen 1.0 (0.2-1.0) mg/dL Ur Leukocyte Esterase Negative (NEGATIVE) Urine RBC 0-5 /HPF Urine WBC 0-5 (0-5/HPF) /HPF Ur Epithelial Cells Many H /HPF Amorphous Sediment Moderate H (0/HPF) /HPF Urine Bacteria Few (0-FEW/HPF) /HPF Urine Mucus Many H /LPF Urine HCG, Qual Urine Opiates Screen Positive H (NEGATIVE) Ur Oxycodone Screen Positive H (NEGATIVE) Urine Methadone Screen Negative (NEGATIVE) Ur Barbiturates Screen Negative (NEGATIVE) U Tricyclic Antidepress Negative (NEGATIVE) Ur Phencyclidine Scrn Negative (NEGATIVE) Ur Amphetamine Screen Negative (NEGATIVE) U Methamphetamines Scrn Negative (NEGATIVE) Urine MDMA Screen Negative (NEGATIVE) U Benzodiazepines Scrn Negative (NEGATIVE) Urine Cocaine Screen Negative (NEGATIVE) U Marijuana (THC) Screen Positive H (NEGATIVE) Meds: Medications Generic Name Dose Route Start Last Admin Trade Name Freq PRN Reason Stop Dose Admin Sodium Chloride 10 ml 03/06/17 16:41 03/06/17 16:53 Saline Flush FLUSH 10 ml ASDIRECTED PRN Administration Keep Vein Open Discontinued Medications Generic Name Dose Route Start Last Admin Trade Name Freq PRN Reason Stop Dose Admin Hydromorphone HCl 1 mg 03/06/17 17:50 03/06/17 18:06 Dilaudid IVPUSH 03/06/17 17:51 1 mg ONETIME ONE Administration Sodium Chloride 1,000 mls @ 999 mls/hr 03/06/17 16:42 03/06/17 16:53 Normal Saline IV 03/06/17 17:42 999 mls/hr .BOLUS ONE Administration Promethazine HCl 25 mg 03/06/17 17:51 03/06/17 18:06 Phenergan IM 03/06/17 17:52 25 mg ONETIME ONE Administration - Radiology Interpretation Free Text/Narrative:: Head CT w/o contrast: No acute findings See rad report Departure - Departure Time of Disposition: 18:51 Disposition: Home, Self-Care 01 Condition: Fair Clinical Impression: Headache Qualifiers: Headache type: unspecified Headache chronicity pattern: unspecified pattern Intractability: intractable Qualified Code(s): R51 - Headache - Discharge Information Instructions: Recurrent Migraine Headache, [id number] Forms: ED Department Discharge Additional Instructions: Follow up with Neuro - My Orders Last 24 Hours: My Active Orders 03/06/17 16:41 Peripheral IV Care [RC] . DIRECTED Sodium Chloride 0.9% [Saline Flush] 10 ml FLUSH ASDIRECTED PRN Peripheral IV Insertion Adult [OM.PC] Stat 03/06/17 19:11 HYDROmorphone [Dilaudid] 1 mg IVPUSH ONETIME ONE - Assessment/Plan Last 24 Hours: My Active Orders 03/06/17 16:41 Peripheral IV Care [RC] . DIRECTED Sodium Chloride 0.9% [Saline Flush] 10 ml FLUSH ASDIRECTED PRN Peripheral IV Insertion Adult [OM.PC] Stat 03/06/17 19:11 HYDROmorphone [Dilaudid] 1 mg IVPUSH ONETIME ONE
[2017-03-06] MEDS ORDERED: Sodium Chloride 0.9% 10 ML Syringe FLUSH PRN (16:41)
[2017-03-06] MEDS ORDERED: Sodium Chloride 0.9% 1,000 ML IV ONE (16:42)
[2017-03-06 17:19] LABS: CHLORIDE,CL 103 mmol/L (101-111); SODIUM,NA 141 mmol/L (135-145)
[2017-03-06] MEDS ORDERED: HYDROmorphone 1 MG/ML Syringe IVPUSH ONE ×2 (17:50→19:11)
[2017-03-06] MEDS ORDERED: Promethazine 25 MG/ML SDV IM ONE (17:51)
== END 2017-03-06 19:24 | disposition home or self-care (01) ==
LOC: DL.ED 16:12
DX: R51 Headache (principal); Z88.1 Allergy status to other antibiotic agents; Z88.5 Allergy status to narcotic agent; Z88.2 Allergy status to sulfonamides; Z88.8 Allergy status to other drugs, medicaments and biological substances
CPT/HCPCS: 36415; 70450; 80053; 80305; 81001; 81025; 85025; 96361; 96372; 96374; 96376; 99284; J1170; J2550; J7030; J7050

== ENCOUNTER 2017-03-14 18:45 | Emergency (ER) | payer MEDICAID, OTHER, SELFPAY ==
[2017-03-14] MEDS ORDERED: HYDROmorphone 1 MG/ML Syringe IVPUSH ONE (20:05)
[2017-03-14] MEDS ORDERED: Sodium Chloride 0.9% 1,000 ML IV ONE (20:05)
[2017-03-14] MEDS ORDERED: Ondansetron 4 MG/2 ML SDV IV ONE (20:05)
--- NOTE | 2017-03-14 20:06 | EDM.PDOC ---
ED HPI GENERAL MEDICAL PROBLEM - General Chief Complaint: Genitourinary Problem Stated Complaint: URINE HAS BLOOD IN IT THIS AM, [id number] Time Seen by Provider: 03/14/17 20:03 Source of Information: Reports: Patient, Family History Limitations: Reports: No Limitations - History of Present Illness INITIAL COMMENTS - FREE TEXT/NARRATIVE: 37 yo [place] Female c/o right flank pain @ 4pm. PMHx. Kidney stone Onset: Today Onset Date: 03/14/17 Onset Time: 16:00 Duration: Hour(s): Location: Reports: Back (right flank) Quality: Reports: Ache Severity: Moderate Improves with: Reports: None Worsens with: Reports: None Context: Reports: Other (PMHx. Kidney stones) Associated Symptoms: Reports: No Other Symptoms Right Flank Pain Score (Numeric/FACES): 9 - Related Data Allergies Allergy/AdvReac Type Severity Reaction Status Date / Time ceftriaxone [From Rocephin] Allergy Hives Verified 03/14/17 20:08 cefuroxime [From Ceftin] Allergy Hives Verified 03/14/17 20:08 celecoxib [From Celebrex] Allergy Hives Verified 03/14/17 20:08 doxycycline Allergy Airway Verified 03/14/17 20:08 Tightness erythromycin base Allergy Hives Verified 03/14/17 20:08 [Erythromycin Base] ibuprofen Allergy Swelling Verified 03/14/17 20:08 naproxen Allergy Airway Verified 03/14/17 20:08 Tightness sulfamethoxazole Allergy Hives Verified 03/14/17 20:08 [From Bactrim] trimethoprim [From Bactrim] Allergy Hives Verified 03/14/17 20:08 Home Meds: Home Meds . [No Known Home Meds] 01/05/17 [History] Past Medical History - Past Health History Medical/Surgical History: Denies Medical/Surgical History HEENT History: Reports: Impaired Vision Other HEENT History: wears corrective lenses Cardiovascular History: Reports: Other (See Below) Other Cardiovascular History: "heart stopped during surgery" Respiratory History: Reports: None Gastrointestinal History: Reports: Cholelithiasis Other Gastrointestinal History: diarrhea since 3 am Genitourinary History: Reports: Other (See Below) Other Genitourinary History: endometrosis, PCOS. 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 Psychiatric History: Reports: None Endocrine/Metabolic History: Reports: Other (See Below) Other Endocrine/Metabolic History: "insulin resistant" Hematologic History: Reports: None Immunologic History: Reports: None Oncologic (Cancer) History: Reports: Ovarian Dermatologic History: Reports: None - Infectious Disease History Infectious Disease History: Reports: None - Past Surgical History Head Surgeries/Procedures: Reports: None GI Surgical History: Reports: Appendectomy, Cholecystectomy Musculoskeletal Surgical History: Reports: None Social & Family History - Family History Family Medical History: Noncontributory Cardiac: Reports: None Respiratory: Reports: None GI: Reports: None Immunologic: Reports: None Dermatologic: Reports: None Oncologic: Reports: None - Tobacco Use Smoking Status *Q: Unknown Ever Smoked Years of Tobacco use: 20 Packs/Tins Daily: 1 Used Tobacco, but Quit: Yes Month Tobacco Last Used: ? Second Hand Smoke Exposure: No - Caffeine Use Caffeine Use: Reports: None - Alcohol Use Days Per Week of Alcohol Use: 0 - Recreational Drug Use Recreational Drug Use: No - Living Situation & Occupation Living situation: Reports: with Family, Single Occupation: Unemployed ED ROS GENERAL - Review of Systems Review Of Systems: See Below Constitutional: Reports: No Symptoms HEENT: Reports: No Symptoms Respiratory: Reports: No Symptoms Cardiovascular: Reports: No Symptoms Endocrine: Reports: No Symptoms GI/Abdominal: Reports: Abdominal Pain (right flank) : Reports: Flank Pain (right) Musculoskeletal: Reports: Back Pain (right flank) Skin: Reports: No Symptoms Neurological: Reports: No Symptoms Psychiatric: Reports: No Symptoms Hematologic/Lymphatic: Reports: No Symptoms Immunologic: Reports: No Symptoms ED EXAM, RENAL/ - Physical Exam Exam: See Below Exam Limited By: No Limitations General Appearance: Alert, WD/WN, No Apparent Distress Eye Exam: Bilateral Eye: EOMI, PERRL Ears: Normal External Exam Nose: Normal Inspection Throat/Mouth: Normal Inspection, Normal Lips Head: Atraumatic, Normocephalic Neck: Normal Inspection Respiratory/Chest: No Respiratory Distress, Lungs Clear, Normal Breath Sounds Cardiovascular: Normal Peripheral Pulses GI/Abdominal: Tender (right flank) Back Exam: CVA Tenderness (R) Extremities: Normal Inspection, Normal Range of Motion Neurological: Alert, Oriented, CN II-XII Intact, Normal Cognition Psychiatric: Normal Affect Skin Exam: Warm, Dry Lymphatic: No Adenopathy Course - Vital Signs Last Recorded V/S: Last Vital Signs Temp 36.3 C 03/14/17 20:02 Pulse 111 H 03/14/17 20:02 Resp 16 03/14/17 20:02 BP 105/58 L 03/14/17 20:02 Pulse Ox 100 03/14/17 20:02 - Orders/Labs/Meds Orders: Active Orders 24 hr Category Date Time Status CULTURE URINE [RM] Stat Lab 03/14/17 19:15 Received D5 1/2 NS w/ 20 mEq/L KCl 1,000 ml Med 03/14/17 21:00 Active IV ASDIRECTED Medication Orders Potassium Chloride/Dextrose/Sod Cl (D5 1/2 Ns W/ 20 Meq/L Kcl) 1,000 mls @ 75 mls/hr IV ASDIRECTED AAKASH Last Admin: 03/14/17 21:23 Dose: 75 mls/hr Labs: Laboratory Tests 03/14/17 03/14/17 03/14/17 Range/Units 19:15 19:15 20:17 WBC 10.5 H (5.0-10.0) 10^3/uL RBC 4.71 (4.2-5.4) 10^6/uL Hgb 13.9 (12.0-16.0) g/dL Hct 41.5 (37.0-47.0) % MCV 88.1 (80-100) fL MCH 29.5 (27.0-34.0) pg MCHC 33.5 (33.0-35.0) g/dL Plt Count 303 (150-450) 10^3/uL Neut % (Auto) 50.4 (42.2-75.2) % Lymph % (Auto) 35.8 (20.5-50.1) % [place] % (Auto) 12.8 H (2-8) % Eos % (Auto) 0.6 L (1.0-3.0) % Baso % (Auto) 0.4 (0.0-1.0) % Sodium (135-145) mmol/L Potassium (3.6-5.0) mmol/L Chloride (101-111) mmol/L Carbon Dioxide (21.0-31.0) mmol/L Anion Gap BUN (7-18) mg/dL Creatinine (0.6-1.3) mg/dL Est Cr Clr Drug Dosing mL/min Estimated GFR (MDRD) BUN/Creatinine Ratio Glucose (74-105) mg/dL Calcium (8.4-10.2) mg/dl Magnesium (1.8-2.5) mg/dL Total Bilirubin (0.2-1.0) mg/dL AST (10-42) IU/L ALT (10-60) IU/L Alkaline Phosphatase (42-121) IU/L Total Protein (6.7-8.2) g/dl Albumin (3.2-5.5) g/dl Globulin Albumin/Globulin Ratio Urine Color Yellow (YELLOW) Urine Appearance Slightly cloudy (CLEAR) Urine pH 5.5 (5.0-9.0) Ur Specific [place] >= 1.030 (1.005-1.030) Urine Protein Negative (NEGATIVE) Urine Glucose (UA) Negative (NEGATIVE) Urine Ketones Negative (NEGATIVE) Urine Occult Blood Negative (NEGATIVE) Urine Nitrite Negative (NEGATIVE) Urine Bilirubin Small H (NEGATIVE) Urine Urobilinogen 0.2 (0.2-1.0) mg/dL Ur Leukocyte Esterase Negative (NEGATIVE) Urine RBC 0-5 /HPF Urine WBC 0-5 (0-5/HPF) /HPF Ur Epithelial Cells Moderate H /HPF Calcium Oxalate Crystal Moderate H /HPF Urine Bacteria Moderate H (0-FEW/HPF) /HPF Urine Mucus Many H /LPF Urine HCG, Qual Negative 03/14/17 03/14/17 Range/Units 20:17 20:17 WBC (5.0-10.0) 10^3/uL RBC (4.2-5.4) 10^6/uL Hgb (12.0-16.0) g/dL Hct (37.0-47.0) % MCV (80-100) fL MCH (27.0-34.0) pg MCHC (33.0-35.0) g/dL Plt Count (150-450) 10^3/uL Neut % (Auto) (42.2-75.2) % Lymph % (Auto) (20.5-50.1) % [place] % (Auto) (2-8) % Eos % (Auto) (1.0-3.0) % Baso % (Auto) (0.0-1.0) % Sodium 137 (135-145) mmol/L Potassium 3.2 L (3.6-5.0) mmol/L Chloride 100 L (101-111) mmol/L Carbon Dioxide 24.0 (21.0-31.0) mmol/L Anion Gap 16.2 BUN 17 (7-18) mg/dL Creatinine 0.6 (0.6-1.3) mg/dL Est Cr Clr Drug Dosing 108.26 mL/min Estimated GFR (MDRD) > 60 BUN/Creatinine Ratio 28.33 Glucose 85 (74-105) mg/dL Calcium 9.6 (8.4-10.2) mg/dl Magnesium 1.9 (1.8-2.5) mg/dL Total Bilirubin 0.5 (0.2-1.0) mg/dL AST 20 (10-42) IU/L ALT 14 (10-60) IU/L Alkaline Phosphatase 56 (42-121) IU/L Total Protein 8.0 (6.7-8.2) g/dl Albumin 4.5 (3.2-5.5) g/dl Globulin 3.5 Albumin/Globulin Ratio 1.29 Urine Color (YELLOW) Urine Appearance (CLEAR) Urine pH (5.0-9.0) Ur Specific [place] (1.005-1.030) Urine Protein (NEGATIVE) Urine Glucose (UA) (NEGATIVE) Urine Ketones (NEGATIVE) Urine Occult Blood (NEGATIVE) Urine Nitrite (NEGATIVE) Urine Bilirubin (NEGATIVE) Urine Urobilinogen (0.2-1.0) mg/dL Ur Leukocyte Esterase (NEGATIVE) Urine RBC /HPF Urine WBC (0-5/HPF) /HPF Ur Epithelial Cells /HPF Calcium Oxalate Crystal /HPF Urine Bacteria (0-FEW/HPF) /HPF Urine Mucus /LPF Urine HCG, Qual Meds: Medications Generic Name Dose Route Start Last Admin Trade Name Freq PRN Reason Stop Dose Admin Potassium Chloride/Dextrose/Sod Cl 1,000 mls @ 75 mls/hr 03/14/17 21:00 03/14 21:23 D5 1/2 Ns W/ 20 Meq/L Kcl IV 75 mls/hr ASDIRECTED AAKASH Administration Discontinued Medications Generic Name Dose Route Start Last Admin Trade Name Freq PRN Reason Stop Dose Admin Hydromorphone HCl 1 mg 03/14/17 20:05 03/14/17 20:20 Dilaudid IVPUSH 03/14/17 20:06 1 mg ONETIME ONE Administration Sodium Chloride 1,000 mls @ 999 mls/hr 03/14/17 20:05 03/14/17 20:18 Normal Saline IV 03/14/17 21:05 999 mls/hr .BOLUS ONE Administration Ondansetron HCl 4 mg 03/14/17 20:05 03/14/17 20:19 Zofran IV 03/14/17 20:06 4 mg ONETIME ONE Administration Departure - Departure Time of Disposition: 21:36 Disposition: Home, Self-Care 01 Condition: Good Clinical Impression: Kidney stone, Renal colic on right side - Discharge Information Forms: ED Department Discharge Additional Instructions: Your CT report show a small right midpole right kidney punctate kidney stone What is a punctate calculus? Punctate means point and as such, punctate kidney (also known as renal) stones ( also known as calculi) are tiny bits of calcium and/or other minerals (urate, cystein etc). They are typically 3mm or less in size. Rest Increase intake of Water / Cranberry Juice For Pain Take Tylenol ES 500mg QID ( otc) F/U w/ PCP - My Orders Last 24 Hours: My Active Orders 03/14/17 19:15 CULTURE URINE [RM] Stat 03/14/17 21:00 D5 1/2 NS w/ 20 mEq/L KCl 1,000 ml IV ASDIRECTED - Assessment/Plan Last 24 Hours: My Active Orders 03/14/17 19:15 CULTURE URINE [RM] Stat 03/14/17 21:00 D5 1/2 NS w/ 20 mEq/L KCl 1,000 ml IV ASDIRECTED
[2017-03-14 20:46] LABS: CHLORIDE,CL 100 mmol/L (101-111); SODIUM,NA 137 mmol/L (135-145)
[2017-03-14] MEDS ORDERED: D5 1/2 NS w/ 20 mEq/L KCl 1,000 ML IV SCH (21:00)
[2017-03-14 21:41] VITALS: BP 104/49
[2017-03-14] MEDS ORDERED: Potassium Chloride 10 MEQ Tab.ER PO ONE (21:46)
== END 2017-03-14 21:59 | disposition home or self-care (01) ==
LOC: DL.ED 18:45
DX: N20.0 Calculus of kidney (principal); Z88.1 Allergy status to other antibiotic agents; Z88.8 Allergy status to other drugs, medicaments and biological substances; Z88.2 Allergy status to sulfonamides
CPT/HCPCS: 36415; 74176; 80053; 81001; 81025; 83735; 85025; 87086; 96361; 96365; 96375; 99284; A9270; J1170; J2405; J3480; J7030

== ENCOUNTER 2017-03-16 17:52 | Emergency (ER) | payer MEDICAID, OTHER, SELFPAY | END 2017-03-16 19:11 | disposition left against medical advice (07) | LOC: DL.ED 17:52 | DX: Z53.21 Procedure and treatment not carried out due to patient leaving prior to being seen by health care provider (principal) ==

== ENCOUNTER 2017-03-21 10:01 | Emergency (ER) | payer MEDICAID, OTHER, SELFPAY ==
[2017-03-21 10:29] VITALS: BP 156/71
[2017-03-21] MEDS ORDERED: HYDROmorphone 1 MG/ML Syringe IVPUSH ONE ×2 (11:22→12:59)
[2017-03-21] MEDS ORDERED: Sodium Chloride 0.9% 10 ML Syringe FLUSH PRN (11:22)
[2017-03-21 11:51] LABS: CHLORIDE,CL 103 mmol/L (101-111); SODIUM,NA 136 mmol/L (135-145)
--- NOTE | 2017-03-21 13:00 | EDM.PDOC ---
ED HPI GENERAL MEDICAL PROBLEM - General Chief Complaint: Abdominal Pain Stated Complaint: KIDNEY Time Seen by Provider: 03/21/17 11:10 Source of Information: Reports: Patient, Family, RN, RN Notes Reviewed - History of Present Illness INITIAL COMMENTS - FREE TEXT/NARRATIVE: Patient passed a kidney stones. She has pain in her right flank area. She has had fever. chills, nausea, vomiting and diarrhea. Location: Reports: Other (right flank) Quality: Reports: Ache Severity: Severe Improves with: Reports: None Worsens with: Reports: None Associated Symptoms: Reports: No Other Symptoms Right Flank Pain Score (Numeric/FACES): 9 - Related Data Allergies Allergy/AdvReac Type Severity Reaction Status Date / Time ceftriaxone [From Rocephin] Allergy Hives Verified 03/21/17 10:13 cefuroxime [From Ceftin] Allergy Hives Verified 03/21/17 10:13 celecoxib [From Celebrex] Allergy Hives Verified 03/21/17 10:13 doxycycline Allergy Airway Verified 03/21/17 10:13 Tightness erythromycin base Allergy Hives Verified 03/21/17 10:13 [Erythromycin Base] ibuprofen Allergy Swelling Verified 03/21/17 10:13 naproxen Allergy Airway Verified 03/21/17 10:13 Tightness sulfamethoxazole Allergy Hives Verified 03/21/17 10:13 [From Bactrim] trimethoprim [From Bactrim] Allergy Hives Verified 03/21/17 10:13 Home Meds: Home Meds . [No Known Home Meds] 01/05/17 [History] Past Medical History - Past Health History Medical/Surgical History: Denies Medical/Surgical History HEENT History: Reports: Impaired Vision Other HEENT History: wears corrective lenses Cardiovascular History: Reports: Other (See Below) Other Cardiovascular History: "heart stopped during surgery" Respiratory History: Reports: None Gastrointestinal History: Reports: Cholelithiasis Other Gastrointestinal History: diarrhea since 3 am Genitourinary History: Reports: Other (See Below) Other Genitourinary History: endometrosis, PCOS. 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 Psychiatric History: Reports: None Endocrine/Metabolic History: Reports: Other (See Below) Other Endocrine/Metabolic History: "insulin resistant" Hematologic History: Reports: None Immunologic History: Reports: None Oncologic (Cancer) History: Reports: Ovarian Dermatologic History: Reports: None - Infectious Disease History Infectious Disease History: Reports: C-Difficile Other Infectious Disease History: lyme disease. - Past Surgical History Head Surgeries/Procedures: Reports: None GI Surgical History: Reports: Appendectomy, Cholecystectomy Musculoskeletal Surgical History: Reports: None Social & Family History - Family History Family Medical History: Noncontributory Cardiac: Reports: None Respiratory: Reports: None GI: Reports: None Immunologic: Reports: None Dermatologic: Reports: None Oncologic: Reports: None - Tobacco Use Smoking Status *Q: Never Smoker Years of Tobacco use: 20 Packs/Tins Daily: 1 Used Tobacco, but Quit: Yes Month Tobacco Last Used: ? Second Hand Smoke Exposure: No - Caffeine Use Caffeine Use: Reports: None - Alcohol Use Days Per Week of Alcohol Use: 0 - Recreational Drug Use Recreational Drug Use: No - Living Situation & Occupation Living situation: Reports: with Family, Single Occupation: Unemployed ED ROS GENERAL - Review of Systems Review Of Systems: ROS reveals no pertinent complaints other than HPI. ED EXAM, GI/ABD - Physical Exam Exam: See Below Exam Limited By: No Limitations General Appearance: Alert, WD/WN, No Apparent Distress Eyes: Bilateral: Normal Appearance Ears: Normal External Exam, Normal Canal, Hearing Grossly Normal, Normal TMs Nose: Normal Inspection, Normal Mucosa, No Blood Throat/Mouth: Normal Inspection, Normal Lips, Normal Teeth, Normal Gums, Normal Oropharynx, Normal Voice, No Airway Compromise Head: Atraumatic, Normocephalic Neck: Normal Inspection, Supple, Non-Tender, Full Range of Motion Respiratory/Chest: No Respiratory Distress, Lungs Clear, Normal Breath Sounds, No Accessory Muscle Use, Chest Non-Tender Cardiovascular: Normal Peripheral Pulses, Regular Rate, Rhythm, No Edema, No Gallop, No JVD, No Murmur, No Rub GI/Abdominal Exam: Other (right flank pain 10/10) (Female) Exam: Deferred Rectal (Female) Exam: Deferred Back Exam: Normal Inspection, Full Range of Motion, NT Extremities: Normal Inspection, Normal Range of Motion, Non-Tender, Normal Capillary Refill, No Pedal Edema Neurological: Alert, Oriented, CN II-XII Intact, Normal Cognition, Normal Gait, Normal Reflexes, No Motor/Sensory Deficits Psychiatric: Normal Affect, Normal Mood Skin Exam: Warm, Dry, Intact, Normal Color, No Rash Lymphatic: No Adenopathy Course - Vital Signs Last Recorded V/S: Last Vital Signs Temp 99.6 F 03/21/17 10:28 Pulse 89 03/21/17 10:28 Resp 16 03/21/17 10:28 BP 156/71 H 03/21/17 10:28 Pulse Ox 98 03/21/17 10:28 - Orders/Labs/Meds Orders: Active Orders 24 hr Category Date Time Status Peripheral IV Care [RC] . DIRECTED Care 03/21/17 11:22 Active Peripheral IV Insertion Adult [OM.PC] Stat Oth 03/21/17 11:22 Ordered Labs: Laboratory Tests 03/21/17 03/21/17 03/21/17 Range/Units 10:11 10:11 11:25 WBC 9.9 (5.0-10.0) 10^3/uL RBC 4.53 (4.2-5.4) 10^6/uL Hgb 13.3 (12.0-16.0) g/dL Hct 40.7 (37.0-47.0) % MCV 89.8 (80-100) fL MCH 29.4 (27.0-34.0) pg MCHC 32.7 L (33.0-35.0) g/dL Plt Count 302 (150-450) 10^3/uL Neut % (Auto) 74.6 (42.2-75.2) % Lymph % (Auto) 18.8 L (20.5-50.1) % [place] % (Auto) 6.1 (2-8) % Eos % (Auto) 0.3 L (1.0-3.0) % Baso % (Auto) 0.2 (0.0-1.0) % Sodium (135-145) mmol/L Potassium (3.6-5.0) mmol/L Chloride (101-111) mmol/L Carbon Dioxide (21.0-31.0) mmol/L Anion Gap BUN (7-18) mg/dL Creatinine (0.6-1.3) mg/dL Est Cr Clr Drug Dosing mL/min Estimated GFR (MDRD) BUN/Creatinine Ratio Glucose (74-105) mg/dL Calcium (8.4-10.2) mg/dl Total Bilirubin (0.2-1.0) mg/dL AST (10-42) IU/L ALT (10-60) IU/L Alkaline Phosphatase (42-121) IU/L Total Protein (6.7-8.2) g/dl Albumin (3.2-5.5) g/dl Globulin Albumin/Globulin Ratio Urine Color Yellow (YELLOW) Urine Appearance Clear (CLEAR) Urine pH 8.0 (5.0-9.0) Ur Specific [place] 1.020 (1.005-1.030) Urine Protein Negative (NEGATIVE) Urine Glucose (UA) Negative (NEGATIVE) Urine Ketones Negative (NEGATIVE) Urine Occult Blood Negative (NEGATIVE) Urine Nitrite Negative (NEGATIVE) Urine Bilirubin Negative (NEGATIVE) Urine Urobilinogen 0.2 (0.2-1.0) mg/dL Ur Leukocyte Esterase Negative (NEGATIVE) Urine RBC 0-5 /HPF Urine WBC 0-5 (0-5/HPF) /HPF Ur Epithelial Cells Moderate H /HPF Urine Bacteria Few (0-FEW/HPF) /HPF Urine Mucus Many H /LPF Urine Opiates Screen Negative (NEGATIVE) Ur Oxycodone Screen Positive H (NEGATIVE) Urine Methadone Screen Negative (NEGATIVE) Ur Barbiturates Screen Negative (NEGATIVE) U Tricyclic Antidepress Negative (NEGATIVE) Ur Phencyclidine Scrn Negative (NEGATIVE) Ur Amphetamine Screen Negative (NEGATIVE) U Methamphetamines Scrn Negative (NEGATIVE) Urine MDMA Screen Negative (NEGATIVE) U Benzodiazepines Scrn Negative (NEGATIVE) Urine Cocaine Screen Negative (NEGATIVE) U Marijuana (THC) Screen Positive H (NEGATIVE) 03/21/17 Range/Units 11:25 WBC (5.0-10.0) 10^3/uL RBC (4.2-5.4) 10^6/uL Hgb (12.0-16.0) g/dL Hct (37.0-47.0) % MCV (80-100) fL MCH (27.0-34.0) pg MCHC (33.0-35.0) g/dL Plt Count (150-450) 10^3/uL Neut % (Auto) (42.2-75.2) % Lymph % (Auto) (20.5-50.1) % [place] % (Auto) (2-8) % Eos % (Auto) (1.0-3.0) % Baso % (Auto) (0.0-1.0) % Sodium 136 (135-145) mmol/L Potassium 3.8 (3.6-5.0) mmol/L Chloride 103 (101-111) mmol/L Carbon Dioxide 23.0 (21.0-31.0) mmol/L Anion Gap 13.8 BUN 13 (7-18) mg/dL Creatinine 0.5 L (0.6-1.3) mg/dL Est Cr Clr Drug Dosing 123.70 mL/min Estimated GFR (MDRD) > 60 BUN/Creatinine Ratio 26.00 Glucose 89 (74-105) mg/dL Calcium 9.4 (8.4-10.2) mg/dl Total Bilirubin 0.5 (0.2-1.0) mg/dL AST 18 (10-42) IU/L ALT 12 (10-60) IU/L Alkaline Phosphatase 56 (42-121) IU/L Total Protein 7.7 (6.7-8.2) g/dl Albumin 4.5 (3.2-5.5) g/dl Globulin 3.2 Albumin/Globulin Ratio 1.41 Urine Color (YELLOW) Urine Appearance (CLEAR) Urine pH (5.0-9.0) Ur Specific [place] (1.005-1.030) Urine Protein (NEGATIVE) Urine Glucose (UA) (NEGATIVE) Urine Ketones (NEGATIVE) Urine Occult Blood (NEGATIVE) Urine Nitrite (NEGATIVE) Urine Bilirubin (NEGATIVE) Urine Urobilinogen (0.2-1.0) mg/dL Ur Leukocyte Esterase (NEGATIVE) Urine RBC /HPF Urine WBC (0-5/HPF) /HPF Ur Epithelial Cells /HPF Urine Bacteria (0-FEW/HPF) /HPF Urine Mucus /LPF Urine Opiates Screen (NEGATIVE) Ur Oxycodone Screen (NEGATIVE) Urine Methadone Screen (NEGATIVE) Ur Barbiturates Screen (NEGATIVE) U Tricyclic Antidepress (NEGATIVE) Ur Phencyclidine Scrn (NEGATIVE) Ur Amphetamine Screen (NEGATIVE) U Methamphetamines Scrn (NEGATIVE) Urine MDMA Screen (NEGATIVE) U Benzodiazepines Scrn (NEGATIVE) Urine Cocaine Screen (NEGATIVE) U Marijuana (THC) Screen (NEGATIVE) Meds: Medications Discontinued Medications Generic Name Dose Route Start Last Admin Trade Name Freq PRN Reason Stop Dose Admin Hydromorphone HCl 1 mg 03/21/17 11:22 03/21/17 11:36 Dilaudid IVPUSH 03/21/17 11:23 1 mg ONETIME ONE Administration Hydromorphone HCl 1 mg 03/21/17 12:59 03/21/17 13:18 Dilaudid IVPUSH 03/21/17 13:00 1 mg ONETIME ONE Administration Sodium Chloride 10 ml 03/21/17 11:22 03/21/17 11:36 Saline Flush FLUSH 10 ml ASDIRECTED PRN Administration Keep Vein Open Departure - Departure Time of Disposition: 13:07 Disposition: Home, Self-Care 01 Condition: Fair Clinical Impression: Right flank pain, Renal colic on right side - Discharge Information Instructions: Renal Colic, [id number], Pain Medicine Instructions, Easy-to- Read Referrals: Billy Conley [Primary Care Provider] - Forms: ED Department Discharge Additional Instructions: Drink plenty of water Follow up with your primary care facility RX: Zofran 4mg - My Orders Last 24 Hours: My Active Orders 03/21/17 11:22 Peripheral IV Care [RC] . DIRECTED Peripheral IV Insertion Adult [OM.PC] Stat - Assessment/Plan Last 24 Hours: My Active Orders 03/21/17 11:22 Peripheral IV Care [RC] . DIRECTED Peripheral IV Insertion Adult [OM.PC] Stat
== END 2017-03-21 13:31 | disposition home or self-care (01) ==
LOC: DL.ED 10:01
DX: N23 Unspecified renal colic (principal); Z88.8 Allergy status to other drugs, medicaments and biological substances; Z88.1 Allergy status to other antibiotic agents; Z88.2 Allergy status to sulfonamides
CPT/HCPCS: 36415; 80053; 80305; 81001; 85025; 96374; 96376; 99284; J1170; J7050

== ENCOUNTER 2017-04-18 04:26 | Emergency (ER) | payer MEDICAID ==
[2017-04-18 04:33] VITALS: BP 117/67
[2017-04-18] MEDS ORDERED: Metoclopramide 10 MG/2 ML SDV IVPUSH ONE (04:37)
[2017-04-18] MEDS ORDERED: Sodium Chloride 0.9% 1,000 ML IV ONE (04:37)
[2017-04-18] MEDS ORDERED: HYDROmorphone 1 MG/ML Syringe IVPUSH ONE (04:40)
--- NOTE | 2017-04-18 04:46 | EDM.PDOC ---
ED HPI GENERAL MEDICAL PROBLEM - General Chief Complaint: Headache Stated Complaint: HEADACHE VOMITING [id number] Time Seen by Provider: 04/18/17 04:38 Source of Information: Reports: Patient History Limitations: Reports: No Limitations - History of Present Illness INITIAL COMMENTS - FREE TEXT/NARRATIVE: This 37 yo female patient reports to the ED with a 2 hour history of a headache and nausea/vomiting. The patient reports she attempted to take Tylenol, but threw up after taking it. The patient reports she has thrown up so much that there is nothing left. The patient reports she is "still waiting" for a referral from the [facility] for her kidney stone. Onset: Today Onset Date: 04/18/17 Onset Time: 02:30 Duration: Hour(s): (2), Constant, Getting Worse Location: Reports: Head, Abdomen Quality: Reports: Ache, Sharp, Stabbing Severity: Severe Improves with: Reports: None Worsens with: Reports: None Associated Symptoms: Reports: No Other Symptoms Treatments SHINGLE GRADER: Reports: Acetaminophen Headache Pain Score (Numeric/FACES): 8 - Related Data Allergies Allergy/AdvReac Type Severity Reaction Status Date / Time ceftriaxone [From Rocephin] Allergy Hives Verified 04/18/17 04:36 cefuroxime [From Ceftin] Allergy Hives Verified 04/18/17 04:36 celecoxib [From Celebrex] Allergy Hives Verified 04/18/17 04:36 doxycycline Allergy Airway Verified 04/18/17 04:36 Tightness erythromycin base Allergy Hives Verified 04/18/17 04:36 [Erythromycin Base] ibuprofen Allergy Swelling Verified 04/18/17 04:36 naproxen Allergy Airway Verified 04/18/17 04:36 Tightness sulfamethoxazole Allergy Hives Verified 04/18/17 04:36 [From Bactrim] trimethoprim [From Bactrim] Allergy Hives Verified 04/18/17 04:36 Home Meds: Home Meds . [No Known Home Meds] 01/05/17 [History] Past Medical History - Past Health History Medical/Surgical History: Denies Medical/Surgical History HEENT History: Reports: Impaired Vision Other HEENT History: wears corrective lenses Cardiovascular History: Reports: Other (See Below) Other Cardiovascular History: "heart stopped during surgery" Respiratory History: Reports: None Gastrointestinal History: Reports: Cholelithiasis Other Gastrointestinal History: diarrhea since 3 am Genitourinary History: Reports: Other (See Below) Other Genitourinary History: endometrosis, PCOS. 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 Psychiatric History: Reports: None Endocrine/Metabolic History: Reports: Other (See Below) Other Endocrine/Metabolic History: "insulin resistant" Hematologic History: Reports: None Immunologic History: Reports: None Oncologic (Cancer) History: Reports: Ovarian Dermatologic History: Reports: None - Infectious Disease History Infectious Disease History: Reports: C-Difficile Other Infectious Disease History: lyme disease. - Past Surgical History Head Surgeries/Procedures: Reports: None GI Surgical History: Reports: Appendectomy, Cholecystectomy Musculoskeletal Surgical History: Reports: None Social & Family History - Family History Family Medical History: Noncontributory Cardiac: Reports: None Respiratory: Reports: None GI: Reports: None Immunologic: Reports: None Dermatologic: Reports: None Oncologic: Reports: None - Tobacco Use Smoking Status *Q: Never Smoker Years of Tobacco use: 20 Packs/Tins Daily: 1 Used Tobacco, but Quit: Yes Month Tobacco Last Used: ? Second Hand Smoke Exposure: No - Caffeine Use Caffeine Use: Reports: None - Alcohol Use Days Per Week of Alcohol Use: 0 - Recreational Drug Use Recreational Drug Use: No - Living Situation & Occupation Living situation: Reports: with Family, Single Occupation: Unemployed ED ROS GENERAL - Review of Systems Review Of Systems: ROS reveals no pertinent complaints other than HPI. - Physical Exam Exam: See Below Exam Limited By: No Limitations General Appearance: Alert, WD/WN, Severe Distress, Thin Eye Exam: Bilateral Eye: EOMI, Normal Inspection, PERRL Ears: Normal External Exam, Normal Canal, Hearing Grossly Normal, Normal TMs Nose: Normal Inspection, Normal Mucosa, No Blood Throat/Mouth: Normal Inspection, Normal Lips, Normal Teeth, Normal Gums, Normal Oropharynx, Normal Voice, No Airway Compromise Head Exam: Atraumatic, Normocephalic Neck: Normal Inspection, Supple, Non-Tender, Full Range of Motion Respiratory/Chest: No Respiratory Distress, Lungs Clear, Normal Breath Sounds, No Accessory Muscle Use, Chest Non-Tender Cardiovascular: Normal Peripheral Pulses, Regular Rate, Rhythm, No Edema, No Gallop, No JVD, No Murmur, No Rub GI/Abdominal: Normal Bowel Sounds, Soft, No Organomegaly, No Distention, No Abnormal Bruit, No Mass, Pelvis Stable, Tender (generalized) (Female) Exam: Deferred Rectal (Female) Exam: Deferred Neuro Exam (Abbreviated): Alert, Oriented, CN II-XII Intact, Normal Cognition, Normal Gait, Normal Reflexes, No Motor/Sensory Deficits Back Exam: Normal Inspection Extremities: Normal Inspection, Normal Range of Motion, Non-Tender, No Pedal Edema, Normal Capillary Refill Psychiatric: Normal Affect, Normal Mood Skin Exam: Warm, Dry, Intact, Normal Color, No Rash Course - Vital Signs Last Recorded V/S: Last Vital Signs Temp 36.6 C 04/18/17 04:32 Pulse 100 04/18/17 04:32 Resp 16 04/18/17 04:32 BP 117/67 04/18/17 04:32 Pulse Ox 96 04/18/17 04:32 - Orders/Labs/Meds Orders: Active Orders 24 hr Category Date Time Status Sodium Chloride 0.9% [Normal Saline] 1,000 ml Med 04/18/17 04:37 Active IV .BOLUS Medication Orders Sodium Chloride (Normal Saline) 1,000 mls @ 999 mls/hr IV .BOLUS ONE Stop: 04/18/17 05:37 Last Admin: 04/18/17 04:45 Dose: 999 mls/hr Meds: Medications Generic Name Dose Route Start Last Admin Trade Name Freq PRN Reason Stop Dose Admin Sodium Chloride 1,000 mls @ 999 mls/hr 04/18/17 04:37 04/18/17 04:45 Normal Saline IV 04/18/17 05:37 999 mls/hr .BOLUS ONE Administration Discontinued Medications Generic Name Dose Route Start Last Admin Trade Name Freq PRN Reason Stop Dose Admin Hydromorphone HCl 1 mg 04/18/17 04:40 04/18/17 04:49 Dilaudid IVPUSH 04/18/17 04:41 1 mg ONETIME ONE Administration Metoclopramide HCl 10 mg 04/18/17 04:37 04/18/17 04:45 Reglan IVPUSH 04/18/17 04:38 10 mg ONETIME ONE Administration Departure - Departure Time of Disposition: 05:25 Disposition: Home, Self-Care 01 Condition: Fair Clinical Impression: Migraine Nausea & vomiting Qualifiers: Vomiting type: unspecified Vomiting Intractability: unspecified Qualified Code( s): R11.2 - Nausea with vomiting, unspecified - Discharge Information Instructions: Nausea and Vomiting, Adult, [id number], Dehydration, Adult, [id number], Recurrent Migraine Headache, [id number] Forms: ED Department Discharge Care Plan Goals: The patient was advised of the examination results during the visit. The patient was given a liter of IV fluid, IV Reglan and IV Dilaudid while in the ED. The patient should follow-up with her primary care facility tomorrow for continued evaluation and further treatment. If the patient has any additional symptoms or concerns, the patient should visit her primary care facility or return to the ED. - My Orders Last 24 Hours: My Active Orders 04/18/17 04:37 Sodium Chloride 0.9% [Normal Saline] 1,000 ml IV .BOLUS - Assessment/Plan Last 24 Hours: My Active Orders 04/18/17 04:37 Sodium Chloride 0.9% [Normal Saline] 1,000 ml IV .BOLUS
== END 2017-04-18 05:33 | disposition home or self-care (01) ==
LOC: DL.ED 04:26
DX: G43.909 Migraine, unspecified, not intractable, without status migrainosus (principal); Z87.891 Personal history of nicotine dependence; Z88.1 Allergy status to other antibiotic agents; Z88.2 Allergy status to sulfonamides; Z88.6 Allergy status to analgesic agent; Z88.8 Allergy status to other drugs, medicaments and biological substances
CPT/HCPCS: 96361; 96374; 96375; 99283; J1170; J2765; J7030

== ENCOUNTER 2017-05-18 19:20 | Emergency (ER) | payer MEDICAID ==
[2017-05-18] MEDS ORDERED: Sodium Chloride 0.9% 1,000 ML IV ONE (19:32)
[2017-05-18] MEDS ORDERED: Metoclopramide 10 MG/2 ML SDV IVPUSH ONE (19:32)
[2017-05-18] MEDS ORDERED: HYDROmorphone 1 MG/ML Syringe IVPUSH ONE ×2 (19:32→20:32)
--- NOTE | 2017-05-18 19:50 | EDM.PDOC ---
ED HPI GENERAL MEDICAL PROBLEM - General Chief Complaint: General Stated Complaint: VOMITING,HEADACHE [id number] Time Seen by Provider: 05/18/17 19:45 Source of Information: Reports: Patient, Family History Limitations: Reports: No Limitations - History of Present Illness INITIAL COMMENTS - FREE TEXT/NARRATIVE: ED with c/o nausea vomiting, headache and chills for past 2 days, Notes everything even her hair hurts. Mother reports she has been around uncle who has been diagnosed with influenza. Emesis 3 times today, Only able to take few sips of liquid. Duration: Day(s): Headache Pain Score (Numeric/FACES): 8 - Related Data Allergies Allergy/AdvReac Type Severity Reaction Status Date / Time ceftriaxone [From Rocephin] Allergy Hives Verified 05/18/17 19:25 cefuroxime [From Ceftin] Allergy Hives Verified 05/18/17 19:25 celecoxib [From Celebrex] Allergy Hives Verified 05/18/17 19:25 doxycycline Allergy Airway Verified 05/18/17 19:25 Tightness erythromycin base Allergy Hives Verified 05/18/17 19:25 [Erythromycin Base] ibuprofen Allergy Swelling Verified 05/18/17 19:25 naproxen Allergy Airway Verified 05/18/17 19:25 Tightness sulfamethoxazole Allergy Hives Verified 05/18/17 19:25 [From Bactrim] trimethoprim [From Bactrim] Allergy Hives Verified 05/18/17 19:25 Home Meds: Home Meds . [No Known Home Meds] 01/05/17 [History] Past Medical History - Past Health History Medical/Surgical History: Denies Medical/Surgical History HEENT History: Reports: Impaired Vision Other HEENT History: wears corrective lenses Cardiovascular History: Reports: Other (See Below) Other Cardiovascular History: "heart stopped during surgery" Respiratory History: Reports: None Gastrointestinal History: Reports: Cholelithiasis Other Gastrointestinal History: diarrhea since 3 am Genitourinary History: Reports: Other (See Below) Other Genitourinary History: endometrosis, PCOS. 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 Psychiatric History: Reports: None Endocrine/Metabolic History: Reports: Other (See Below) Other Endocrine/Metabolic History: "insulin resistant" Hematologic History: Reports: None Immunologic History: Reports: None Oncologic (Cancer) History: Reports: Ovarian Dermatologic History: Reports: None - Infectious Disease History Infectious Disease History: Reports: C-Difficile Other Infectious Disease History: lyme disease. - Past Surgical History Head Surgeries/Procedures: Reports: None GI Surgical History: Reports: Appendectomy, Cholecystectomy Musculoskeletal Surgical History: Reports: None Social & Family History - Family History Family Medical History: Noncontributory Cardiac: Reports: None Respiratory: Reports: None GI: Reports: None Immunologic: Reports: None Dermatologic: Reports: None Oncologic: Reports: None - Tobacco Use Smoking Status *Q: Never Smoker Years of Tobacco use: 20 Packs/Tins Daily: 1 Used Tobacco, but Quit: Yes Month Tobacco Last Used: ? Second Hand Smoke Exposure: No - Caffeine Use Caffeine Use: Reports: None - Alcohol Use Days Per Week of Alcohol Use: 0 - Recreational Drug Use Recreational Drug Use: No - Living Situation & Occupation Living situation: Reports: with Family, Single Occupation: Unemployed ED ROS GENERAL - Review of Systems Review Of Systems: See Below Constitutional: Reports: Chills HEENT: Denies: Throat Pain Respiratory: Reports: Cough Cardiovascular: Reports: No Symptoms GI/Abdominal: Reports: Abdominal Pain, Diarrhea, Decreased Appetite, Nausea, Vomiting : Reports: No Symptoms Musculoskeletal: Reports: Other (everything hurts) Skin: Reports: No Symptoms Neurological: Reports: Headache ED EXAM, GENERAL - Physical Exam Exam: See Below Exam Limited By: No Limitations General Appearance: Alert, Moderate Distress Eye Exam: Bilateral Eye: EOMI Ears: Normal External Exam, Normal TMs Nose: Normal Inspection Throat/Mouth: No Airway Compromise, Other (mucus membranes parched). No: Inflammation Head: Atraumatic, Normocephalic Neck: Normal Inspection, Full Range of Motion Respiratory/Chest: No Respiratory Distress, Lungs Clear, Normal Breath Sounds, Chest Non-Tender Cardiovascular: Normal Peripheral Pulses, Regular Rate, Rhythm GI/Abdominal: Normal Bowel Sounds, Soft, Tender (epigastric mild) Back Exam: Full Range of Motion Neurological: Alert, Oriented, Normal Cognition Psychiatric: Flat Affect Skin Exam: Warm, Dry, Intact, Normal Color Course - Vital Signs Last Recorded V/S: Last Vital Signs Temp 97.8 F 05/18/17 19:25 Pulse 72 05/18/17 20:38 Resp 14 05/18/17 20:38 BP 97/33 L 05/18/17 20:38 Pulse Ox 96 05/18/17 20:38 - Orders/Labs/Meds Labs: Laboratory Tests 05/18/17 05/18/17 05/18/17 Range/Units 19:36 19:36 19:40 WBC 10.7 H (5.0-10.0) 10^3/uL RBC 4.56 (4.2-5.4) 10^6/uL Hgb 13.4 (12.0-16.0) g/dL Hct 40.7 (37.0-47.0) % MCV 89.3 (80-100) fL MCH 29.4 (27.0-34.0) pg MCHC 32.9 L (33.0-35.0) g/dL Plt Count 306 (150-450) 10^3/uL Neut % (Auto) 53.2 (42.2-75.2) % Lymph % (Auto) 35.7 (20.5-50.1) % [place] % (Auto) 9.7 H (2-8) % Eos % (Auto) 1.2 (1.0-3.0) % Baso % (Auto) 0.2 (0.0-1.0) % Sodium (135-145) mmol/L Potassium (3.6-5.0) mmol/L Chloride (101-111) mmol/L Carbon Dioxide (21.0-31.0) mmol/L Anion Gap BUN (7-18) mg/dL Creatinine (0.6-1.3) mg/dL Est Cr Clr Drug Dosing mL/min Estimated GFR (MDRD) BUN/Creatinine Ratio Glucose (74-105) mg/dL Calcium (8.4-10.2) mg/dl Total Bilirubin (0.2-1.0) mg/dL AST (10-42) IU/L ALT (10-60) IU/L Alkaline Phosphatase (42-121) IU/L Total Protein (6.7-8.2) g/dl Albumin (3.2-5.5) g/dl Globulin Albumin/Globulin Ratio Urine Color Yellow (YELLOW) Urine Appearance Clear (CLEAR) Urine pH 5.5 (5.0-9.0) Ur Specific [place] 1.025 (1.005-1.030) Urine Protein Negative (NEGATIVE) Urine Glucose (UA) Negative (NEGATIVE) Urine Ketones Trace H (NEGATIVE) Urine Occult Blood Negative (NEGATIVE) Urine Nitrite Negative (NEGATIVE) Urine Bilirubin Negative (NEGATIVE) Urine Urobilinogen 0.2 (0.2-1.0) mg/dL Ur Leukocyte Esterase Negative (NEGATIVE) Urine RBC 0-5 /HPF Urine WBC 0-5 (0-5/HPF) /HPF Ur Epithelial Cells Few /HPF Urine Bacteria Few (0-FEW/HPF) /HPF Urine Opiates Screen Negative (NEGATIVE) Ur Oxycodone Screen Positive H (NEGATIVE) Urine Methadone Screen Negative (NEGATIVE) Ur Barbiturates Screen Negative (NEGATIVE) U Tricyclic Antidepress Negative (NEGATIVE) Ur Phencyclidine Scrn Negative (NEGATIVE) Ur Amphetamine Screen Negative (NEGATIVE) U Methamphetamines Scrn Negative (NEGATIVE) Urine MDMA Screen Negative (NEGATIVE) U Benzodiazepines Scrn Negative (NEGATIVE) Urine Cocaine Screen Negative (NEGATIVE) U Marijuana (THC) Screen Positive H (NEGATIVE) 05/18/17 Range/Units 19:40 WBC (5.0-10.0) 10^3/uL RBC (4.2-5.4) 10^6/uL Hgb (12.0-16.0) g/dL Hct (37.0-47.0) % MCV (80-100) fL MCH (27.0-34.0) pg MCHC (33.0-35.0) g/dL Plt Count (150-450) 10^3/uL Neut % (Auto) (42.2-75.2) % Lymph % (Auto) (20.5-50.1) % [place] % (Auto) (2-8) % Eos % (Auto) (1.0-3.0) % Baso % (Auto) (0.0-1.0) % Sodium 138 (135-145) mmol/L Potassium 3.8 (3.6-5.0) mmol/L Chloride 103 (101-111) mmol/L Carbon Dioxide 27.0 (21.0-31.0) mmol/L Anion Gap 11.8 BUN 13 (7-18) mg/dL Creatinine 0.6 (0.6-1.3) mg/dL Est Cr Clr Drug Dosing 108.26 mL/min Estimated GFR (MDRD) > 60 BUN/Creatinine Ratio 21.66 Glucose 93 (74-105) mg/dL Calcium 9.3 (8.4-10.2) mg/dl Total Bilirubin 0.5 (0.2-1.0) mg/dL AST 33 (10-42) IU/L ALT 34 (10-60) IU/L Alkaline Phosphatase 51 (42-121) IU/L Total Protein 7.6 (6.7-8.2) g/dl Albumin 4.4 (3.2-5.5) g/dl Globulin 3.2 Albumin/Globulin Ratio 1.38 Urine Color (YELLOW) Urine Appearance (CLEAR) Urine pH (5.0-9.0) Ur Specific [place] (1.005-1.030) Urine Protein (NEGATIVE) Urine Glucose (UA) (NEGATIVE) Urine Ketones (NEGATIVE) Urine Occult Blood (NEGATIVE) Urine Nitrite (NEGATIVE) Urine Bilirubin (NEGATIVE) Urine Urobilinogen (0.2-1.0) mg/dL Ur Leukocyte Esterase (NEGATIVE) Urine RBC /HPF Urine WBC (0-5/HPF) /HPF Ur Epithelial Cells /HPF Urine Bacteria (0-FEW/HPF) /HPF Urine Opiates Screen (NEGATIVE) Ur Oxycodone Screen (NEGATIVE) Urine Methadone Screen (NEGATIVE) Ur Barbiturates Screen (NEGATIVE) U Tricyclic Antidepress (NEGATIVE) Ur Phencyclidine Scrn (NEGATIVE) Ur Amphetamine Screen (NEGATIVE) U Methamphetamines Scrn (NEGATIVE) Urine MDMA Screen (NEGATIVE) U Benzodiazepines Scrn (NEGATIVE) Urine Cocaine Screen (NEGATIVE) U Marijuana (THC) Screen (NEGATIVE) Meds: Medications Discontinued Medications Generic Name Dose Route Start Last Admin Trade Name Freq PRN Reason Stop Dose Admin Hydromorphone HCl 1 mg 05/18/17 19:32 05/18/17 19:47 Dilaudid IVPUSH 05/18/17 19:33 1 mg ONETIME ONE Administration Hydromorphone HCl 1 mg 05/18/17 20:32 05/18/17 20:36 Dilaudid IVPUSH 05/18/17 20:33 1 mg ONETIME ONE Administration Sodium Chloride 1,000 mls @ 999 mls/min 05/18/17 19:32 05/18/17 19:45 Normal Saline IV 05/18/17 19:33 999 mls/min .BOLUS ONE Administration Metoclopramide HCl 10 mg 05/18/17 19:32 05/18/17 19:45 Reglan IVPUSH 05/18/17 19:33 10 mg ONETIME ONE Administration Departure - Departure Time of Disposition: 20:48 Disposition: Home, Self-Care 01 Condition: Fair Clinical Impression: Dehydration, mild Nausea & vomiting Qualifiers: Vomiting type: unspecified Vomiting Intractability: unspecified Qualified Code( s): R11.2 - Nausea with vomiting, unspecified - Discharge Information Instructions: Nausea and Vomiting, Adult, [id number] Forms: ED Department Discharge Additional Instructions: small sips liquid, gradual increase as tolerated, clinic follow up as needed tylenol every 4 hours as needed for discomfort
[2017-05-18 20:07] LABS: CHLORIDE,CL 103 mmol/L (101-111); SODIUM,NA 138 mmol/L (135-145)
[2017-05-18 20:39] VITALS: BP 97/33
== END 2017-05-18 20:56 | disposition home or self-care (01) ==
LOC: DL.ED 19:20
DX: E86.0 Dehydration (principal); R11.2 Nausea with vomiting, unspecified; Z88.8 Allergy status to other drugs, medicaments and biological substances; Z88.2 Allergy status to sulfonamides; Z88.1 Allergy status to other antibiotic agents; Z88.6 Allergy status to analgesic agent; Z87.891 Personal history of nicotine dependence
CPT/HCPCS: 36415; 80053; 80305; 81001; 85025; 87804; 96361; 96374; 96375; 96376; 99284; J1170; J2765; J7030

== ENCOUNTER 2017-05-21 18:05 | Emergency (ER) | payer MEDICAID ==
[2017-05-21] MEDS ORDERED: Acetaminophen/oxyCODONE 325-5 MG Tab PO ONE (18:06)
[2017-05-21] MEDS ORDERED: diphenhydrAMINE 50 MG/ML SDV IVPUSH ONE (18:41)
[2017-05-21] MEDS ORDERED: Sodium Chloride 0.9% 1,000 ML IV ONE (18:41)
[2017-05-21] MEDS ORDERED: Ondansetron 4 MG/2 ML SDV IV ONE (18:41)
[2017-05-21] MEDS ORDERED: HYDROmorphone 1 MG/ML Syringe IVPUSH ONE ×2 (18:43→19:57)
[2017-05-21] MEDS ORDERED: Sodium Chloride 0.9% 10 ML Syringe FLUSH PRN (18:43)
--- NOTE | 2017-05-21 18:49 | EDM.PDOC ---
<Vic Cobb - Last Filed: 05/21/17 18:44> ED HPI GENERAL MEDICAL PROBLEM - General Chief Complaint: Back Pain or Injury Stated Complaint: BACK PAIN Time Seen by Provider: 05/21/17 18:35 Source of Information: Reports: Patient History Limitations: Reports: No Limitations - History of Present Illness INITIAL COMMENTS - FREE TEXT/NARRATIVE: Patient comes emergency Department today with complaints of right flank pain that radiates down her right lower quadrant. This is been going on for the past 3-4 days. She was seen in the emergency department here a couple of days ago but did not have the pain at this time. She was more nausea vomiting at that time. She did feel better for the last day or so but has got much worse today. She complains of right flank pain that radiates into the right lower quadrant of her abdomen. She denies any hematuria dysuria or urinary frequency. She denies any change in vaginal discharge or vaginal bleeding. She has had a appendectomy cholecystectomy as well as a hysterectomy. She has been seen for this many times in the emergency department and has chronic abdominal pain. She has tried nothing for pain prior to arrival. She has not had any diarrhea. Her last bowel movement was this morning and normal. Generalized Pain Score (Numeric/FACES): 10 - Related Data Allergies Allergy/AdvReac Type Severity Reaction Status Date / Time ceftriaxone [From Rocephin] Allergy Hives Verified 05/18/17 19:25 cefuroxime [From Ceftin] Allergy Hives Verified 05/18/17 19:25 celecoxib [From Celebrex] Allergy Hives Verified 05/18/17 19:25 doxycycline Allergy Airway Verified 05/18/17 19:25 Tightness erythromycin base Allergy Hives Verified 05/18/17 19:25 [Erythromycin Base] ibuprofen Allergy Swelling Verified 05/18/17 19:25 naproxen Allergy Airway Verified 05/18/17 19:25 Tightness sulfamethoxazole Allergy Hives Verified 05/18/17 19:25 [From Bactrim] trimethoprim [From Bactrim] Allergy Hives Verified 05/18/17 19:25 Home Meds: Home Meds Acetaminophen [Tylenol] 650 mg PO Q6H 05/21/17 [History] Past Medical History - Past Health History Medical/Surgical History: Denies Medical/Surgical History HEENT History: Reports: Impaired Vision Other HEENT History: wears corrective lenses Cardiovascular History: Reports: Other (See Below) Other Cardiovascular History: "heart stopped during surgery" Respiratory History: Reports: None Gastrointestinal History: Reports: Cholelithiasis Other Gastrointestinal History: diarrhea since 3 am Genitourinary History: Reports: Other (See Below) Other Genitourinary History: endometrosis, PCOS. 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 Psychiatric History: Reports: None Endocrine/Metabolic History: Reports: Other (See Below) Other Endocrine/Metabolic History: "insulin resistant" Hematologic History: Reports: None Immunologic History: Reports: None Oncologic (Cancer) History: Reports: Ovarian Dermatologic History: Reports: None - Infectious Disease History Infectious Disease History: Reports: C-Difficile Other Infectious Disease History: lyme disease. - Past Surgical History Head Surgeries/Procedures: Reports: None GI Surgical History: Reports: Appendectomy, Cholecystectomy Musculoskeletal Surgical History: Reports: None Social & Family History - Family History Family Medical History: Noncontributory Cardiac: Reports: None Respiratory: Reports: None GI: Reports: None Immunologic: Reports: None Dermatologic: Reports: None Oncologic: Reports: None - Tobacco Use Smoking Status *Q: Never Smoker Years of Tobacco use: 20 Packs/Tins Daily: 1 Used Tobacco, but Quit: Yes Month Tobacco Last Used: ? Second Hand Smoke Exposure: No - Caffeine Use Caffeine Use: Reports: None - Alcohol Use Days Per Week of Alcohol Use: 0 - Recreational Drug Use Recreational Drug Use: No - Living Situation & Occupation Living situation: Reports: with Family, Single Occupation: Unemployed ED ROS GENERAL - Review of Systems Review Of Systems: ROS reveals no pertinent complaints other than HPI. ED EXAM, GI/ABD - Physical Exam Exam: See Below Text/Narrative:: Laying on her left side with her knees pulled up towards her chest. Exam Limited By: No Limitations General Appearance: Alert, WD/WN, No Apparent Distress Eyes: Bilateral: EOMI Ears: Normal External Exam Nose: Normal Inspection Throat/Mouth: Normal Inspection, Normal Oropharynx Head: Atraumatic, Normocephalic Neck: Normal Inspection, Supple, Non-Tender Respiratory/Chest: No Respiratory Distress, Lungs Clear, Normal Breath Sounds Cardiovascular: Normal Peripheral Pulses, Regular Rate, Rhythm, No Murmur GI/Abdominal Exam: Normal Bowel Sounds, Soft, No Organomegaly, No Distention, No Abnormal Bruit, No Mass, Pelvis Stable, Tender (Tenderness of the right upper quadrant as well as the right lower quadrant without guarding or rebound tenderness.) (Female) Exam: Deferred Rectal (Female) Exam: Deferred Back Exam: CVA Tenderness (R). No: CVA Tenderness (L) Extremities: Normal Inspection, Normal Capillary Refill Neurological: Alert, Oriented Psychiatric: Normal Affect Skin Exam: Warm, Dry, Intact, Normal Color Lymphatic: No Adenopathy Course - Vital Signs Last Recorded V/S: Last Vital Signs Temp 97.5 F 05/21/17 19:32 Pulse 77 05/21/17 19:32 Resp 16 05/21/17 19:32 BP 124/55 L 05/21/17 19:32 Pulse Ox 97 05/21/17 19:32 - Orders/Labs/Meds Orders: Active Orders 24 hr Category Date Time Status Peripheral IV Care [RC] . DIRECTED Care 05/21/17 18:43 Active CMP [COMPREHENSIVE METABOLIC PN,CMP] [CHEM] Stat Lab 05/21/17 19:58 Ordered Sodium Chloride 0.9% [Saline Flush] Med 05/21/17 18:43 Active 10 ml FLUSH ASDIRECTED PRN Peripheral IV Insertion Adult [OM.PC] Stat Oth 05/21/17 18:41 Ordered Medication Orders Sodium Chloride (Saline Flush) 10 ml FLUSH ASDIRECTED PRN PRN Reason: Keep Vein Open Last Admin: 05/21/17 19:09 Dose: 10 ml Labs: Laboratory Tests 05/21/17 05/21/17 05/21/17 Range/Units 18:11 18:11 18:50 WBC 8.7 (5.0-10.0) 10^3/uL RBC 4.33 (4.2-5.4) 10^6/uL Hgb 12.7 (12.0-16.0) g/dL Hct 38.7 (37.0-47.0) % MCV 89.4 (80-100) fL MCH 29.3 (27.0-34.0) pg MCHC 32.8 L (33.0-35.0) g/dL Plt Count 306 (150-450) 10^3/uL Neut % (Auto) 53.7 (42.2-75.2) % Lymph % (Auto) 33.8 (20.5-50.1) % [place] % (Auto) 11.2 H (2-8) % Eos % (Auto) 1.0 (1.0-3.0) % Baso % (Auto) 0.3 (0.0-1.0) % C-Reactive Protein (0.0-1.3) mg/dL Urine Color Yellow (YELLOW) Urine Appearance Slightly cloudy (CLEAR) Urine pH 5.0 (5.0-9.0) Ur Specific [place] 1.025 (1.005-1.030) Urine Protein Negative (NEGATIVE) Urine Glucose (UA) Negative (NEGATIVE) Urine Ketones Trace H (NEGATIVE) Urine Occult Blood Negative (NEGATIVE) Urine Nitrite Negative (NEGATIVE) Urine Bilirubin Negative (NEGATIVE) Urine Urobilinogen 0.2 (0.2-1.0) mg/dL Ur Leukocyte Esterase Negative (NEGATIVE) Urine RBC 0-5 /HPF Urine WBC 0-5 (0-5/HPF) /HPF Ur Epithelial Cells Few /HPF Urine Bacteria Rare (0-FEW/HPF) /HPF Urine Mucus Few H /LPF Urine HCG, Qual Negative 05/21/17 Range/Units 18:50 WBC (5.0-10.0) 10^3/uL RBC (4.2-5.4) 10^6/uL Hgb (12.0-16.0) g/dL Hct (37.0-47.0) % MCV (80-100) fL MCH (27.0-34.0) pg MCHC (33.0-35.0) g/dL Plt Count (150-450) 10^3/uL Neut % (Auto) (42.2-75.2) % Lymph % (Auto) (20.5-50.1) % [place] % (Auto) (2-8) % Eos % (Auto) (1.0-3.0) % Baso % (Auto) (0.0-1.0) % C-Reactive Protein 0.5 (0.0-1.3) mg/dL Urine Color (YELLOW) Urine Appearance (CLEAR) Urine pH (5.0-9.0) Ur Specific [place] (1.005-1.030) Urine Protein (NEGATIVE) Urine Glucose (UA) (NEGATIVE) Urine Ketones (NEGATIVE) Urine Occult Blood (NEGATIVE) Urine Nitrite (NEGATIVE) Urine Bilirubin (NEGATIVE) Urine Urobilinogen (0.2-1.0) mg/dL Ur Leukocyte Esterase (NEGATIVE) Urine RBC /HPF Urine WBC (0-5/HPF) /HPF Ur Epithelial Cells /HPF Urine Bacteria (0-FEW/HPF) /HPF Urine Mucus /LPF Urine HCG, Qual Meds: Medications Generic Name Dose Route Start Last Admin Trade Name Freq PRN Reason Stop Dose Admin Sodium Chloride 10 ml 05/21/17 18:43 05/21/17 19:09 Saline Flush FLUSH 10 ml ASDIRECTED PRN Administration Keep Vein Open Discontinued Medications Generic Name Dose Route Start Last Admin Trade Name Freq PRN Reason Stop Dose Admin Diphenhydramine HCl 50 mg 05/21/17 18:41 05/21/17 19:05 Benadryl IVPUSH 05/21/17 18:42 50 mg ONETIME ONE Administration Hydromorphone HCl 1 mg 05/21/17 18:43 05/21/17 19:07 Dilaudid IVPUSH 05/21/17 18:44 1 mg ONETIME ONE Administration Hydromorphone HCl 1 mg 05/21/17 19:57 05/21/17 20:00 Dilaudid IVPUSH 05/21/17 19:58 1 mg ONETIME ONE Administration Sodium Chloride 1,000 mls @ 999 mls/hr 05/21/17 18:41 05/21/17 19:03 Normal Saline IV 05/21/17 19:41 999 mls/hr .BOLUS ONE Administration Ondansetron HCl 4 mg 05/21/17 18:41 05/21/17 19:05 Zofran IV 05/21/17 18:42 4 mg ONETIME ONE Administration - Re-Assessments/Exams Free Text/Narrative Re-Assessment/Exam: 05/21/17 18:47 IV normal saline 1 L wide open. Benadryl 50 mg IV push. Zofran 4 mg IV push. Dilaudid 1 mg IV push. Departure - Departure Disposition: Home, Self-Care 01 Clinical Impression: Right inguinal pain - Discharge Information Instructions: Flank Pain, [id number] Forms: ED Department Discharge Additional Instructions: rest follow up in clinic this week light diet increase fuid intake percocet 5/325 one every 6 hours as needed for severe pain - My Orders Last 24 Hours: My Active Orders 05/21/17 19:58 CMP [COMPREHENSIVE METABOLIC PN,CMP] [CHEM] Stat - Assessment/Plan Last 24 Hours: My Active Orders 05/21/17 19:58 CMP [COMPREHENSIVE METABOLIC PN,CMP] [CHEM] Stat <Danitza Ratliff - Last Filed: 05/21/17 20:39> Departure - Departure Time of Disposition: 20:33 Condition: Fair
[2017-05-21 20:28] LABS: CHLORIDE,CL 102 mmol/L (101-111); SODIUM,NA 138 mmol/L (135-145)
[2017-05-21] MEDS ORDERED: Acetaminophen/oxyCODONE 325-5 MG Tab ONE (20:33)
[2017-05-21 20:43] VITALS: BP 138/46
== END 2017-05-21 20:43 | disposition home or self-care (01) ==
LOC: DL.ED 18:05
DX: R10.31 Right lower quadrant pain (principal); Z88.1 Allergy status to other antibiotic agents; Z88.8 Allergy status to other drugs, medicaments and biological substances; Z88.2 Allergy status to sulfonamides
CPT/HCPCS: 36415; 80053; 81001; 81025; 85025; 86140; 96361; 96374; 96375; 96376; 99283; A9270; J1170; J1200; J2405; J7030; J7050

== ENCOUNTER 2017-05-22 18:05 | Emergency (ER) | payer MEDICAID ==
[2017-05-22 19:49] LABS: ANION GAP 13.5; CHLORIDE,CL 100 mmol/L (101-111); SODIUM,NA 136 mmol/L (135-145)
--- NOTE | 2017-05-22 20:50 | EDM.PDOC ---
ED HPI GENERAL MEDICAL PROBLEM - General Chief Complaint: Chest Pain Stated Complaint: CHEST PAIN [id number] Time Seen by Provider: 05/22/17 19:00 Source of Information: Reports: Patient, Family History Limitations: Reports: No Limitations - History of Present Illness INITIAL COMMENTS - FREE TEXT/NARRATIVE: ED per wheelchair with report of waking this afternoon with chest pain per mother and worried that she had another stroke. Patient notes no chest pain states she ahs not eaten much today and threw up after lunch. Reported playing with new puppy most of afternoon. Patient has been seen multiple times this week with varied vague complaints. Mid-Sternal Chest Pain Score (Numeric/FACES): 9 - Related Data Allergies Allergy/AdvReac Type Severity Reaction Status Date / Time ceftriaxone [From Rocephin] Allergy Hives Verified 05/18/17 19:25 cefuroxime [From Ceftin] Allergy Hives Verified 05/18/17 19:25 celecoxib [From Celebrex] Allergy Hives Verified 05/18/17 19:25 doxycycline Allergy Airway Verified 05/18/17 19:25 Tightness erythromycin base Allergy Hives Verified 05/18/17 19:25 [Erythromycin Base] ibuprofen Allergy Swelling Verified 05/18/17 19:25 naproxen Allergy Airway Verified 05/18/17 19:25 Tightness sulfamethoxazole Allergy Hives Verified 05/18/17 19:25 [From Bactrim] trimethoprim [From Bactrim] Allergy Hives Verified 05/18/17 19:25 Home Meds: Home Meds Acetaminophen [Tylenol] 650 mg PO Q6H 05/21/17 [History] Past Medical History - Past Health History Medical/Surgical History: Denies Medical/Surgical History HEENT History: Reports: Impaired Vision Other HEENT History: wears corrective lenses Cardiovascular History: Reports: Other (See Below) Other Cardiovascular History: "heart stopped during surgery" Respiratory History: Reports: None Gastrointestinal History: Reports: Cholelithiasis Other Gastrointestinal History: diarrhea since 3 am Genitourinary History: Reports: Other (See Below) Other Genitourinary History: endometrosis, PCOS. 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 Psychiatric History: Reports: None Endocrine/Metabolic History: Reports: Other (See Below) Other Endocrine/Metabolic History: "insulin resistant" Hematologic History: Reports: None Immunologic History: Reports: None Oncologic (Cancer) History: Reports: Ovarian Dermatologic History: Reports: None - Infectious Disease History Infectious Disease History: Reports: C-Difficile Other Infectious Disease History: lyme disease. - Past Surgical History Head Surgeries/Procedures: Reports: None GI Surgical History: Reports: Appendectomy, Cholecystectomy Musculoskeletal Surgical History: Reports: None Social & Family History - Family History Family Medical History: Noncontributory Cardiac: Reports: None Respiratory: Reports: None GI: Reports: None Immunologic: Reports: None Dermatologic: Reports: None Oncologic: Reports: None - Tobacco Use Smoking Status *Q: Never Smoker Years of Tobacco use: 20 Packs/Tins Daily: 1 Used Tobacco, but Quit: Yes Month Tobacco Last Used: ? Second Hand Smoke Exposure: Yes - Caffeine Use Caffeine Use: Reports: None - Alcohol Use Days Per Week of Alcohol Use: 0 - Recreational Drug Use Recreational Drug Use: No - Living Situation & Occupation Living situation: Reports: with Family, Single Occupation: Unemployed ED ROS GENERAL - Review of Systems Review Of Systems: See Below Constitutional: Reports: Decreased Appetite HEENT: Reports: Glasses Respiratory: Reports: No Symptoms Cardiovascular: Reports: Chest Pain (after waking from nap). Denies: Lightheadedness, Syncope GI/Abdominal: Reports: Decreased Appetite, Nausea, Vomiting (x1 after lunch) : Reports: No Symptoms Neurological: Reports: Headache (past week) ED EXAM, GENERAL - Physical Exam Exam: See Below Exam Limited By: No Limitations General Appearance: Alert, Mild Distress, Thin Eye Exam: Bilateral Eye: EOMI, PERRL Ears: Normal External Exam, Normal TMs Nose: Normal Inspection Throat/Mouth: Normal Inspection Head: Atraumatic, Normocephalic Neck: Normal Inspection Respiratory/Chest: No Respiratory Distress, Lungs Clear, Normal Breath Sounds, Chest Non-Tender Cardiovascular: Normal Peripheral Pulses, Regular Rate, Rhythm GI/Abdominal: Normal Bowel Sounds, Soft, Tender (mild epigastric). No: Guarding Back Exam: Normal Inspection, Full Range of Motion Extremities: Normal Inspection, Normal Range of Motion Neurological: Alert, Oriented Psychiatric: Flat Affect Skin Exam: Warm, Dry, Intact, Pallor Course - Vital Signs Last Recorded V/S: Last Vital Signs Temp 98.2 F 05/22/17 18:56 Pulse 73 05/22/17 20:55 Resp 18 05/22/17 20:55 BP 122/73 05/22/17 20:55 Pulse Ox 97 05/22/17 20:55 - Orders/Labs/Meds Orders: Active Orders 24 hr Category Date Time Status EKG 12 Lead [EKG Documentation Completion] [RC] URGENT Care 05/22/17 19:14 Active Labs: Laboratory Tests 05/22/17 05/22/17 05/22/17 Range/Units 19:23 19:23 19:23 WBC 12.3 H (5.0-10.0) 10^3/uL RBC 4.72 (4.2-5.4) 10^6/uL Hgb 13.9 (12.0-16.0) g/dL Hct 41.9 (37.0-47.0) % MCV 88.8 (80-100) fL MCH 29.4 (27.0-34.0) pg MCHC 33.2 (33.0-35.0) g/dL Plt Count 310 (150-450) 10^3/uL Neut % (Auto) 78.6 H (42.2-75.2) % Lymph % (Auto) 16.1 L (20.5-50.1) % [place] % (Auto) 4.9 (2-8) % Eos % (Auto) 0.2 L (1.0-3.0) % Baso % (Auto) 0.2 (0.0-1.0) % PT 10.2 (9.0-12.0) SEC INR 1.0 (0.9-1.2) D-Dimer, Quantitative < 100 (0-400) ng/mL Sodium 136 (135-145) mmol/L Potassium 3.5 L (3.6-5.0) mmol/L Chloride 100 L (101-111) mmol/L Carbon Dioxide 26.0 (21.0-31.0) mmol/L Anion Gap 13.5 BUN 11 (7-18) mg/dL Creatinine 0.6 (0.6-1.3) mg/dL Est Cr Clr Drug Dosing 108.26 mL/min Estimated GFR (MDRD) > 60 BUN/Creatinine Ratio 18.33 Glucose 117 H (74-105) mg/dL Calcium 9.9 (8.4-10.2) mg/dl Magnesium 1.9 (1.8-2.5) mg/dL Total Bilirubin 0.4 (0.2-1.0) mg/dL AST 30 (10-42) IU/L ALT 41 (10-60) IU/L Alkaline Phosphatase 61 (42-121) IU/L Troponin I (0.00-0.02) ng/ml Total Protein 7.9 (6.7-8.2) g/dl Albumin 4.6 (3.2-5.5) g/dl Globulin 3.3 Albumin/Globulin Ratio 1.39 05/22/17 Range/Units 19:23 WBC (5.0-10.0) 10^3/uL RBC (4.2-5.4) 10^6/uL Hgb (12.0-16.0) g/dL Hct (37.0-47.0) % MCV (80-100) fL MCH (27.0-34.0) pg MCHC (33.0-35.0) g/dL Plt Count (150-450) 10^3/uL Neut % (Auto) (42.2-75.2) % Lymph % (Auto) (20.5-50.1) % [place] % (Auto) (2-8) % Eos % (Auto) (1.0-3.0) % Baso % (Auto) (0.0-1.0) % PT (9.0-12.0) SEC INR (0.9-1.2) D-Dimer, Quantitative (0-400) ng/mL Sodium (135-145) mmol/L Potassium (3.6-5.0) mmol/L Chloride (101-111) mmol/L Carbon Dioxide (21.0-31.0) mmol/L Anion Gap BUN (7-18) mg/dL Creatinine (0.6-1.3) mg/dL Est Cr Clr Drug Dosing mL/min Estimated GFR (MDRD) BUN/Creatinine Ratio Glucose (74-105) mg/dL Calcium (8.4-10.2) mg/dl Magnesium (1.8-2.5) mg/dL Total Bilirubin (0.2-1.0) mg/dL AST (10-42) IU/L ALT (10-60) IU/L Alkaline Phosphatase (42-121) IU/L Troponin I < 0.02 (0.00-0.02) ng/ml Total Protein (6.7-8.2) g/dl Albumin (3.2-5.5) g/dl Globulin Albumin/Globulin Ratio - Radiology Interpretation Free Text/Narrative:: CT head negative - Re-Assessments/Exams Free Text/Narrative Re-Assessment/Exam: 05/23/17 02:14 Equal strength bilaterally, good fine motor movements. Transfers independently. More interactive and engaging in conversation when away from mother. Results of studies discussed with patient and parent. Instructed to follow with primary care. Departure - Departure Time of Disposition: 20:48 Disposition: Home, Self-Care 01 Condition: Fair Clinical Impression: Chest pain Qualifiers: Chest pain type: other chest pain Qualified Code(s): R07.89 - Other chest pain ; R07.8 - Other chest pain Headache Qualifiers: Headache type: unspecified Headache chronicity pattern: unspecified pattern Intractability: not intractable Qualified Code(s): R51 - Headache Instructions: Nonspecific Chest Pain, [id number] Referrals: PCP,None [Primary Care Provider] - Forms: ED Department Discharge Additional Instructions: light bland diet tylenol 650mg every 4 hours as needed for discomfort follow up in clinic this week - My Orders Last 24 Hours: My Active Orders 05/22/17 19:14 EKG 12 Lead [EKG Documentation Completion] [RC] URGENT - Assessment/Plan Last 24 Hours: My Active Orders 05/22/17 19:14 EKG 12 Lead [EKG Documentation Completion] [RC] URGENT
[2017-05-22 21:00] VITALS: BP 122/73
--- NOTE | 2017-05-24 15:41 | EKG ---
05/22/2017 - PAULY MORALES - FINDINGS: This 12-lead EKG shows a normal sinus rhythm with a ventricular rate of 61. Right axis deviation. Normal intervals. No acute ST-segment or T-wave changes. [facility] /[id number]
== END 2017-05-22 20:56 | disposition home or self-care (01) ==
LOC: DL.ED 18:05
DX: R07.89 Other chest pain (principal); R51 Headache; Z87.891 Personal history of nicotine dependence; Z88.1 Allergy status to other antibiotic agents; Z88.2 Allergy status to sulfonamides; Z88.8 Allergy status to other drugs, medicaments and biological substances
CPT/HCPCS: 36415; 70450; 71045; 80053; 83735; 84484; 85025; 85379; 85610; 93005; 99285

== ENCOUNTER 2017-05-28 11:35 | Emergency (ER) | payer MEDICAID, SELFPAY ==
[2017-05-28 11:43] VITALS: BP 100/58
[2017-05-28] MEDS ORDERED: Metoclopramide 10 MG/2 ML SDV IVPUSH ONE (11:52)
[2017-05-28] MEDS ORDERED: Sodium Chloride 0.9% 1,000 ML IV ONE (11:52)
--- NOTE | 2017-05-28 12:03 | EDM.PDOC ---
ED HPI GENERAL MEDICAL PROBLEM - General Chief Complaint: Headache Stated Complaint: [id number] MIGRAINE BACK PAIN Time Seen by Provider: 05/28/17 11:45 Source of Information: Reports: Patient, Family History Limitations: Reports: No Limitations - History of Present Illness INITIAL COMMENTS - FREE TEXT/NARRATIVE: This 37 yo female patient reports to the ED with a 2 day history of a migraine headache and right flank pain. The patient reports she has been having increased pain over the past month. The patient does have an appointment with Dr. Lima on 06/06/17 for continued evaluation and further treatment. Onset Date: 05/26/17 Duration: Constant, Getting Worse Location: Reports: Head, Back (right lower back) Quality: Reports: Sharp, Stabbing Severity: Severe Improves with: Reports: None Worsens with: Reports: None Context: Reports: Other Associated Symptoms: Reports: Loss of Appetite, Nausea/Vomiting Treatments ACCOUNTANCY PROFESSOR: Reports: Acetaminophen Headache Pain Score (Numeric/FACES): 9 - Related Data Allergies Allergy/AdvReac Type Severity Reaction Status Date / Time ceftriaxone [From Rocephin] Allergy Hives Verified 05/28/17 11:38 cefuroxime [From Ceftin] Allergy Hives Verified 05/28/17 11:38 celecoxib [From Celebrex] Allergy Hives Verified 05/28/17 11:38 doxycycline Allergy Airway Verified 05/28/17 11:38 Tightness erythromycin base Allergy Hives Verified 05/28/17 11:38 [Erythromycin Base] ibuprofen Allergy Swelling Verified 05/28/17 11:38 naproxen Allergy Airway Verified 05/28/17 11:38 Tightness sulfamethoxazole Allergy Hives Verified 05/28/17 11:38 [From Bactrim] trimethoprim [From Bactrim] Allergy Hives Verified 05/28/17 11:38 Home Meds: Home Meds Acetaminophen [Tylenol] 650 mg PO Q6H 05/21/17 [History] Past Medical History - Past Health History Medical/Surgical History: Denies Medical/Surgical History HEENT History: Reports: Impaired Vision Other HEENT History: wears corrective lenses Cardiovascular History: Reports: Other (See Below) Other Cardiovascular History: "heart stopped during surgery" Respiratory History: Reports: None Gastrointestinal History: Reports: Cholelithiasis Other Gastrointestinal History: diarrhea since 3 am Genitourinary History: Reports: Other (See Below) Other Genitourinary History: endometrosis, PCOS. 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 Psychiatric History: Reports: None Endocrine/Metabolic History: Reports: Other (See Below) Other Endocrine/Metabolic History: "insulin resistant" Hematologic History: Reports: None Immunologic History: Reports: None Oncologic (Cancer) History: Reports: Ovarian Dermatologic History: Reports: None - Infectious Disease History Infectious Disease History: Reports: C-Difficile Other Infectious Disease History: lyme disease. - Past Surgical History Head Surgeries/Procedures: Reports: None GI Surgical History: Reports: Appendectomy, Cholecystectomy Musculoskeletal Surgical History: Reports: None Social & Family History - Family History Family Medical History: Noncontributory Cardiac: Reports: None Respiratory: Reports: None GI: Reports: None Immunologic: Reports: None Dermatologic: Reports: None Oncologic: Reports: None - Tobacco Use Smoking Status *Q: Never Smoker Years of Tobacco use: 20 Packs/Tins Daily: 1 Used Tobacco, but Quit: Yes Month Tobacco Last Used: ? Second Hand Smoke Exposure: Yes - Caffeine Use Caffeine Use: Reports: None - Alcohol Use Days Per Week of Alcohol Use: 0 - Recreational Drug Use Recreational Drug Use: No - Living Situation & Occupation Living situation: Reports: with Family, Single Occupation: Unemployed ED ROS GENERAL - Review of Systems Review Of Systems: ROS reveals no pertinent complaints other than HPI. - Physical Exam Exam: See Below Exam Limited By: No Limitations General Appearance: Alert, WD/WN, Moderate Distress, Thin Eye Exam: Bilateral Eye: EOMI, Normal Inspection, PERRL Ears: Normal External Exam, Normal Canal, Hearing Grossly Normal, Normal TMs Nose: Normal Inspection, Normal Mucosa, No Blood Throat/Mouth: Normal Inspection, Normal Lips, Normal Teeth, Normal Gums, Normal Oropharynx, Normal Voice, No Airway Compromise Head Exam: Atraumatic, Normocephalic Neck: Normal Inspection, Supple, Non-Tender, Full Range of Motion Respiratory/Chest: No Respiratory Distress, Lungs Clear, Normal Breath Sounds, No Accessory Muscle Use, Chest Non-Tender Cardiovascular: Normal Peripheral Pulses, Regular Rate, Rhythm, No Edema, No Gallop, No JVD, No Murmur, No Rub GI/Abdominal: Normal Bowel Sounds, Soft, Non-Tender, No Organomegaly, No Distention, No Abnormal Bruit, No Mass (Female) Exam: Deferred Rectal (Female) Exam: Deferred Neuro Exam (Abbreviated): Alert, Oriented, CN II-XII Intact, Normal Cognition, Normal Gait, Normal Reflexes, No Motor/Sensory Deficits Back Exam: CVA Tenderness (R) Extremities: Normal Inspection, Normal Range of Motion, Non-Tender, No Pedal Edema, Normal Capillary Refill Psychiatric: Normal Affect, Normal Mood Skin Exam: Warm, Dry, Intact, Normal Color, No Rash Course - Vital Signs Last Recorded V/S: Last Vital Signs Temp 36.9 C 05/28/17 11:42 Pulse 101 H 05/28/17 11:42 Resp 16 05/28/17 11:42 BP 100/58 L 05/28/17 11:42 Pulse Ox 98 05/28/17 11:42 - Orders/Labs/Meds Labs: Laboratory Tests 05/28/17 05/28/17 05/28/17 Range/Units 11:40 11:40 12:02 WBC 7.2 (5.0-10.0) 10^3/uL RBC 4.61 (4.2-5.4) 10^6/uL Hgb 13.7 (12.0-16.0) g/dL Hct 41.1 (37.0-47.0) % MCV 89.2 (80-100) fL MCH 29.7 (27.0-34.0) pg MCHC 33.3 (33.0-35.0) g/dL Plt Count 284 (150-450) 10^3/uL Neut % (Auto) 66.0 (42.2-75.2) % Lymph % (Auto) 25.0 (20.5-50.1) % [place] % (Auto) 8.3 H (2-8) % Eos % (Auto) 0.6 L (1.0-3.0) % Baso % (Auto) 0.1 (0.0-1.0) % Sodium (135-145) mmol/L Potassium (3.6-5.0) mmol/L Chloride (101-111) mmol/L Carbon Dioxide (21.0-31.0) mmol/L Anion Gap BUN (7-18) mg/dL Creatinine (0.6-1.3) mg/dL Est Cr Clr Drug Dosing mL/min Estimated GFR (MDRD) BUN/Creatinine Ratio Glucose (74-105) mg/dL Calcium (8.4-10.2) mg/dl Total Bilirubin (0.2-1.0) mg/dL AST (10-42) IU/L ALT (10-60) IU/L Alkaline Phosphatase (42-121) IU/L Total Protein (6.7-8.2) g/dl Albumin (3.2-5.5) g/dl Globulin Albumin/Globulin Ratio Urine Color Straw (YELLOW) Urine Appearance Cloudy (CLEAR) Urine pH 7.0 (5.0-9.0) Ur Specific [place] 1.025 (1.005-1.030) Urine Protein Trace H (NEGATIVE) Urine Glucose (UA) Negative (NEGATIVE) Urine Ketones Negative (NEGATIVE) Urine Occult Blood Large H (NEGATIVE) Urine Nitrite Negative (NEGATIVE) Urine Bilirubin Negative (NEGATIVE) Urine Urobilinogen 0.2 (0.2-1.0) mg/dL Ur Leukocyte Esterase Negative (NEGATIVE) Urine RBC Semi-packed H /HPF Urine WBC 0-5 (0-5/HPF) /HPF Ur Epithelial Cells Few /HPF Amorphous Sediment Not seen (0/HPF) /HPF Urine Bacteria Not seen (0-FEW/HPF) /HPF Urine Mucus Few H /LPF Urine Opiates Screen Negative (NEGATIVE) Ur Oxycodone Screen Negative (NEGATIVE) Urine Methadone Screen Negative (NEGATIVE) Ur Barbiturates Screen Negative (NEGATIVE) U Tricyclic Antidepress Negative (NEGATIVE) Ur Phencyclidine Scrn Negative (NEGATIVE) Ur Amphetamine Screen Negative (NEGATIVE) U Methamphetamines Scrn Negative (NEGATIVE) Urine MDMA Screen Negative (NEGATIVE) U Benzodiazepines Scrn Positive H (NEGATIVE) Urine Cocaine Screen Negative (NEGATIVE) U Marijuana (THC) Screen Positive H (NEGATIVE) 05/28/17 Range/Units 12:02 WBC (5.0-10.0) 10^3/uL RBC (4.2-5.4) 10^6/uL Hgb (12.0-16.0) g/dL Hct (37.0-47.0) % MCV (80-100) fL MCH (27.0-34.0) pg MCHC (33.0-35.0) g/dL Plt Count (150-450) 10^3/uL Neut % (Auto) (42.2-75.2) % Lymph % (Auto) (20.5-50.1) % [place] % (Auto) (2-8) % Eos % (Auto) (1.0-3.0) % Baso % (Auto) (0.0-1.0) % Sodium 139 (135-145) mmol/L Potassium 3.9 (3.6-5.0) mmol/L Chloride 102 (101-111) mmol/L Carbon Dioxide 29.0 (21.0-31.0) mmol/L Anion Gap 11.9 BUN 13 (7-18) mg/dL Creatinine 0.6 (0.6-1.3) mg/dL Est Cr Clr Drug Dosing 108.26 mL/min Estimated GFR (MDRD) > 60 BUN/Creatinine Ratio 21.66 Glucose 89 (74-105) mg/dL Calcium 9.4 (8.4-10.2) mg/dl Total Bilirubin 0.5 (0.2-1.0) mg/dL AST 22 (10-42) IU/L ALT 21 (10-60) IU/L Alkaline Phosphatase 57 (42-121) IU/L Total Protein 7.9 (6.7-8.2) g/dl Albumin 4.6 (3.2-5.5) g/dl Globulin 3.3 Albumin/Globulin Ratio 1.39 Urine Color (YELLOW) Urine Appearance (CLEAR) Urine pH (5.0-9.0) Ur Specific [place] (1.005-1.030) Urine Protein (NEGATIVE) Urine Glucose (UA) (NEGATIVE) Urine Ketones (NEGATIVE) Urine Occult Blood (NEGATIVE) Urine Nitrite (NEGATIVE) Urine Bilirubin (NEGATIVE) Urine Urobilinogen (0.2-1.0) mg/dL Ur Leukocyte Esterase (NEGATIVE) Urine RBC /HPF Urine WBC (0-5/HPF) /HPF Ur Epithelial Cells /HPF Amorphous Sediment (0/HPF) /HPF Urine Bacteria (0-FEW/HPF) /HPF Urine Mucus /LPF Urine Opiates Screen (NEGATIVE) Ur Oxycodone Screen (NEGATIVE) Urine Methadone Screen (NEGATIVE) Ur Barbiturates Screen (NEGATIVE) U Tricyclic Antidepress (NEGATIVE) Ur Phencyclidine Scrn (NEGATIVE) Ur Amphetamine Screen (NEGATIVE) U Methamphetamines Scrn (NEGATIVE) Urine MDMA Screen (NEGATIVE) U Benzodiazepines Scrn (NEGATIVE) Urine Cocaine Screen (NEGATIVE) U Marijuana (THC) Screen (NEGATIVE) Meds: Medications Discontinued Medications Generic Name Dose Route Start Last Admin Trade Name Addy PRN Reason Stop Dose Admin Hydromorphone HCl 1 mg 05/28/17 12:29 05/28/17 12:34 Dilaudid IVPUSH 05/28/17 12:30 1 mg ONETIME ONE Administration Hydromorphone HCl 1 mg 05/28/17 12:44 05/28/17 12:49 Dilaudid IVPUSH 05/28/17 12:45 1 mg ONETIME ONE Administration Sodium Chloride 1,000 mls @ 999 mls/hr 05/28/17 11:52 05/28/17 12:08 Normal Saline IV 05/28/17 12:52 999 mls/hr .BOLUS ONE Administration Metoclopramide HCl 10 mg 05/28/17 11:52 05/28/17 12:08 Reglan IVPUSH 05/28/17 11:53 10 mg ONETIME ONE Administration Departure - Departure Time of Disposition: 12:52 Disposition: Home, Self-Care 01 Condition: Fair Clinical Impression: Migraine headache Qualifiers: Migraine type: unspecified Status migrainosus presence: without status migrainosus Intractability: intractable Qualified Code(s): G43.919 - Migraine, unspecified, intractable, without status migrainosus Hematuria Qualifiers: Hematuria type: gross Qualified Code(s): R31.0 - Gross hematuria - Discharge Information Instructions: Recurrent Migraine Headache, [id number], Hematuria, Adult Forms: ED Department Discharge Care Plan Goals: The patient and her mother were advised of the examination and lab results during the visit. The patient was given a dose of IV Reglan, IV fluids and IV Dilaudid while in the ED. The patient was encouraged to increase her oral fluid intake. The patient should follow-up with her primary care facility for further evaluation (referral to urology) and treatment. If the patient has any additional symptoms or concerns, the patient should follow-up with her primary care facility or return to the ED.
[2017-05-28 12:27] LABS: CHLORIDE,CL 102 mmol/L (101-111); SODIUM,NA 139 mmol/L (135-145)
[2017-05-28] MEDS ORDERED: HYDROmorphone 1 MG/ML Syringe IVPUSH ONE ×2 (12:29→12:44)
== END 2017-05-28 13:04 | disposition home or self-care (01) ==
LOC: DL.ED 11:35
DX: G43.919 Migraine, unspecified, intractable, without status migrainosus (principal); R31.0 Gross hematuria; Z87.891 Personal history of nicotine dependence; Z88.1 Allergy status to other antibiotic agents; Z88.2 Allergy status to sulfonamides; Z88.6 Allergy status to analgesic agent; Z88.8 Allergy status to other drugs, medicaments and biological substances
CPT/HCPCS: 36415; 80053; 80305; 81001; 85025; 96361; 96374; 96375; 99283; J1170; J2765; J7030

== ENCOUNTER 2017-06-07 17:48 | Emergency (ER) | payer MEDICAID ==
[2017-06-07 18:21] VITALS: BP 104/56
[2017-06-07] MEDS ORDERED: Sodium Chloride 0.9% 1,000 ML IV ONE (18:21)
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
[2017-06-07 18:49] LABS: ANION GAP 10.7; CHLORIDE,CL 103 mmol/L (101-111); SODIUM,NA 135 mmol/L (135-145)
== END 2017-06-07 20:00 | disposition home or self-care (01) ==
LOC: DL.ED 17:48
DX: R10.31 Right lower quadrant pain (principal); R10.84 Generalized abdominal pain; R82.99 Other abnormal findings in urine; Z87.891 Personal history of nicotine dependence; Z88.1 Allergy status to other antibiotic agents; Z88.2 Allergy status to sulfonamides; Z88.6 Allergy status to analgesic agent; Z88.8 Allergy status to other drugs, medicaments and biological substances
CPT/HCPCS: 36415; 80053; 80305; 81001; 82150; 83690; 85025; 87081; 87430; 87804; 96365; 99284; J7030

== ENCOUNTER 2017-06-26 07:50 | Emergency (ER) | payer MEDICAID, SELFPAY ==
[2017-06-26] MEDS ORDERED: HYDROmorphone 0.5 MG/0.5 ML Syringe IVPUSH ONE ×2 (08:10→08:54)
[2017-06-26] MEDS ORDERED: Ondansetron 4 MG/2 ML SDV IV ONE (08:10)
[2017-06-26] MEDS ORDERED: Sodium Chloride 0.9% 1,000 ML IV ONE (08:11)
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
[2017-06-26 08:43] LABS: CHLORIDE,CL 101 mmol/L (101-111); SODIUM,NA 136 mmol/L (135-145)
[2017-06-26 09:01] VITALS: BP 109/59
== END 2017-06-26 09:05 | disposition home or self-care (01) ==
LOC: DL.ED 07:50
DX: K08.89 Other specified disorders of teeth and supporting structures (principal); F17.210 Nicotine dependence, cigarettes, uncomplicated; Z88.1 Allergy status to other antibiotic agents; Z88.2 Allergy status to sulfonamides; Z88.8 Allergy status to other drugs, medicaments and biological substances; Z88.6 Allergy status to analgesic agent
CPT/HCPCS: 36415; 80053; 83605; 85025; 96361; 96374; 96375; 96376; 99283; J1170; J2405; J7030

== ENCOUNTER 2017-07-14 09:37 | Emergency (ER) | payer MEDICAID, OTHER ==
[2017-07-14] MEDS ORDERED: Sodium Chloride 0.9% 10 ML Syringe FLUSH PRN (09:51)
[2017-07-14] MEDS ORDERED: HYDROmorphone 1 MG/ML Syringe IVPUSH ONE ×2 (09:59→11:35)
[2017-07-14] MEDS ORDERED: Ondansetron 4 MG/2 ML SDV IV ONE ×2 (09:59→11:35)
[2017-07-14] MEDS ORDERED: Sodium Chloride 0.9% 1,000 ML IV ONE (09:59)
[2017-07-14] MEDS ORDERED: Ketorolac 30 MG/ML SDV IVPUSH ONE (09:59)
--- NOTE | 2017-07-14 09:59 | EDM.PDOC ---
ED HPI GENERAL MEDICAL PROBLEM - General Chief Complaint: Flank Pain Stated Complaint: [id number] KIDNEY STONE Time Seen by Provider: 07/14/17 09:45 Source of Information: Reports: Patient, Old Records, RN, RN Notes Reviewed History Limitations: Reports: No Limitations - History of Present Illness INITIAL COMMENTS - FREE TEXT/NARRATIVE: Patient presents to ER with complaint of right sided abdominal and flank pain with nausea and vomiting. Denies fever or chills. Patient seen this week at [place] and diagnosed with 2 kidney stones on right. She has a urologist appointment but will not be seen until next week. Onset: Today Duration: Getting Worse Location: Reports: Abdomen (and flank pain) Quality: Reports: Ache Severity: Severe Improves with: Reports: None Worsens with: Reports: None Associated Symptoms: Reports: No Other Symptoms Right Flank Pain Score (Numeric/FACES): 9 - Related Data Allergies Allergy/AdvReac Type Severity Reaction Status Date / Time ceftriaxone [From Rocephin] Allergy Hives Verified 07/14/17 09:45 cefuroxime [From Ceftin] Allergy Hives Verified 07/14/17 09:45 celecoxib [From Celebrex] Allergy Hives Verified 07/14/17 09:45 doxycycline Allergy Airway Verified 07/14/17 09:45 Tightness erythromycin base Allergy Hives Verified 07/14/17 09:45 [Erythromycin Base] ibuprofen Allergy Swelling Verified 07/14/17 09:45 naproxen Allergy Airway Verified 07/14/17 09:45 Tightness sulfamethoxazole Allergy Hives Verified 07/14/17 09:45 [From Bactrim] trimethoprim [From Bactrim] Allergy Hives Verified 07/14/17 09:45 Home Meds: Home Meds Acetaminophen [Tylenol] 650 mg PO Q6H 05/21/17 [History] Past Medical History - Past Health History Medical/Surgical History: Denies Medical/Surgical History HEENT History: Reports: Impaired Vision Other HEENT History: wears corrective lenses Cardiovascular History: Reports: Other (See Below) Other Cardiovascular History: "heart stopped during surgery" Respiratory History: Reports: None Gastrointestinal History: Reports: Cholelithiasis Other Gastrointestinal History: diarrhea since 3 am Genitourinary History: Reports: Other (See Below) Other Genitourinary History: endometrosis, PCOS. 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 Psychiatric History: Reports: None Endocrine/Metabolic History: Reports: Other (See Below) Other Endocrine/Metabolic History: "insulin resistant" Hematologic History: Reports: None Immunologic History: Reports: None Oncologic (Cancer) History: Reports: Ovarian Dermatologic History: Reports: None - Infectious Disease History Infectious Disease History: Reports: C-Difficile Other Infectious Disease History: lyme disease. - Past Surgical History Head Surgeries/Procedures: Reports: None GI Surgical History: Reports: Appendectomy, Cholecystectomy Musculoskeletal Surgical History: Reports: None Social & Family History - Family History Family Medical History: Noncontributory Cardiac: Reports: None Respiratory: Reports: None GI: Reports: None Immunologic: Reports: None Dermatologic: Reports: None Oncologic: Reports: None - Tobacco Use Smoking Status *Q: Current Every Day Smoker Years of Tobacco use: 2 Packs/Tins Daily: 0.5 Used Tobacco, but Quit: Yes Month Tobacco Last Used: ? Second Hand Smoke Exposure: Yes - Caffeine Use Caffeine Use: Reports: None Caffeine Use Comment: mother states no caffeine use. - Alcohol Use Days Per Week of Alcohol Use: 0 - Recreational Drug Use Recreational Drug Use: No Drug Use in Last 12 Months: No - Living Situation & Occupation Living situation: Reports: with Family, Single Occupation: Unemployed ED ROS GENERAL - Review of Systems Review Of Systems: ROS reveals no pertinent complaints other than HPI. ED EXAM, RENAL/ - Physical Exam Exam: See Below Exam Limited By: No Limitations General Appearance: Alert, No Apparent Distress, Other (uncomfortable but nontoxic appearing.) Throat/Mouth: Normal Voice, No Airway Compromise Head: Atraumatic, Normocephalic Neck: Normal Inspection, Non-Tender, Full Range of Motion Respiratory/Chest: No Respiratory Distress, Lungs Clear, Normal Breath Sounds, No Accessory Muscle Use, Chest Non-Tender Cardiovascular: Regular Rate, Rhythm, No Edema, No Gallop, No JVD, No Murmur, No Rub, Tachycardia GI/Abdominal: Normal Bowel Sounds, Soft, No Distention, No Abnormal Bruit, Tender (RLQ, suprapubic regions). No: Guarding, Rigid, Rebound (Female) Exam: Deferred Rectal (Female) Exam: Deferred Back Exam: Full Range of Motion, CVA Tenderness (R) (and flank tenderness). No : CVA Tenderness (L), Paraspinal Tenderness, Vertebral Tenderness Extremities: Normal Inspection, Normal Range of Motion, Non-Tender Neurological: Alert, Oriented, CN II-XII Intact, Normal Cognition, Normal Gait, Normal Reflexes, No Motor/Sensory Deficits Psychiatric: Normal Affect, Depressed Mood Skin Exam: Warm, Dry, Intact, Normal Color, No Rash Course - Vital Signs Last Recorded V/S: Last Vital Signs Temp 37.4 C 07/14/17 10:47 Pulse 91 07/14/17 10:47 Resp 20 07/14/17 10:47 BP 112/62 07/14/17 10:47 Pulse Ox 100 07/14/17 10:47 - Orders/Labs/Meds Orders: Active Orders 24 hr Category Date Time Status Peripheral IV Care [RC] . DIRECTED Care 07/14/17 09:51 Active Sodium Chloride 0.9% [Saline Flush] Med 07/14/17 09:51 Active 10 ml FLUSH ASDIRECTED PRN Peripheral IV Insertion Adult [OM.PC] Stat Oth 07/14/17 09:51 Ordered Medication Orders Sodium Chloride (Saline Flush) 10 ml FLUSH ASDIRECTED PRN PRN Reason: Keep Vein Open Last Admin: 07/14/17 09:57 Dose: 10 ml Labs: Laboratory Tests 07/14/17 07/14/17 07/14/17 Range/Units 09:45 09:45 09:54 WBC 10.2 H (5.0-10.0) 10^3/uL RBC 4.68 (4.2-5.4) 10^6/uL Hgb 13.9 (12.0-16.0) g/dL Hct 41.6 (37.0-47.0) % MCV 88.9 (80-100) fL MCH 29.7 (27.0-34.0) pg MCHC 33.4 (33.0-35.0) g/dL Plt Count 318 (150-450) 10^3/uL Neut % (Auto) 72.2 (42.2-75.2) % Lymph % (Auto) 20.6 (20.5-50.1) % Ray % (Auto) 6.8 (2-8) % Eos % (Auto) 0.3 L (1.0-3.0) % Baso % (Auto) 0.1 (0.0-1.0) % Sodium (135-145) mmol/L Potassium (3.6-5.0) mmol/L Chloride (101-111) mmol/L Carbon Dioxide (21.0-31.0) mmol/L Anion Gap BUN (7-18) mg/dL Creatinine (0.6-1.3) mg/dL Est Cr Clr Drug Dosing mL/min Estimated GFR (MDRD) Glucose (74-105) mg/dL Calcium (8.4-10.2) mg/dl Urine Color Yellow (YELLOW) Urine Appearance Clear (CLEAR) Urine pH 7.0 (5.0-9.0) Ur Specific [place] 1.015 (1.005-1.030) Urine Protein Trace H (NEGATIVE) Urine Glucose (UA) Negative (NEGATIVE) Urine Ketones Negative (NEGATIVE) Urine Occult Blood Negative (NEGATIVE) Urine Nitrite Negative (NEGATIVE) Urine Bilirubin Negative (NEGATIVE) Urine Urobilinogen 0.2 (0.2-1.0) mg/dL Ur Leukocyte Esterase Negative (NEGATIVE) Urine RBC Not seen /HPF Urine WBC 0-5 (0-5/HPF) /HPF Ur Epithelial Cells Few /HPF Urine Bacteria Rare (0-FEW/HPF) /HPF Urine Mucus Moderate H /LPF Urine Opiates Screen Negative (NEGATIVE) Ur Oxycodone Screen Positive H (NEGATIVE) Urine Methadone Screen Negative (NEGATIVE) Ur Barbiturates Screen Negative (NEGATIVE) U Tricyclic Antidepress Negative (NEGATIVE) Ur Phencyclidine Scrn Negative (NEGATIVE) Ur Amphetamine Screen Negative (NEGATIVE) U Methamphetamines Scrn Negative (NEGATIVE) Urine MDMA Screen Negative (NEGATIVE) U Benzodiazepines Scrn Positive H (NEGATIVE) Urine Cocaine Screen Negative (NEGATIVE) U Marijuana (THC) Screen Positive H (NEGATIVE) 07/14/17 Range/Units 09:54 WBC (5.0-10.0) 10^3/uL RBC (4.2-5.4) 10^6/uL Hgb (12.0-16.0) g/dL Hct (37.0-47.0) % MCV (80-100) fL MCH (27.0-34.0) pg MCHC (33.0-35.0) g/dL Plt Count (150-450) 10^3/uL Neut % (Auto) (42.2-75.2) % Lymph % (Auto) (20.5-50.1) % Ray % (Auto) (2-8) % Eos % (Auto) (1.0-3.0) % Baso % (Auto) (0.0-1.0) % Sodium 136 (135-145) mmol/L Potassium 3.9 (3.6-5.0) mmol/L Chloride 104 (101-111) mmol/L Carbon Dioxide 22.0 (21.0-31.0) mmol/L Anion Gap 13.9 BUN 10 (7-18) mg/dL Creatinine 0.6 (0.6-1.3) mg/dL Est Cr Clr Drug Dosing 108.26 mL/min Estimated GFR (MDRD) > 60 Glucose 93 (74-105) mg/dL Calcium 9.3 (8.4-10.2) mg/dl Urine Color (YELLOW) Urine Appearance (CLEAR) Urine pH (5.0-9.0) Ur Specific [place] (1.005-1.030) Urine Protein (NEGATIVE) Urine Glucose (UA) (NEGATIVE) Urine Ketones (NEGATIVE) Urine Occult Blood (NEGATIVE) Urine Nitrite (NEGATIVE) Urine Bilirubin (NEGATIVE) Urine Urobilinogen (0.2-1.0) mg/dL Ur Leukocyte Esterase (NEGATIVE) Urine RBC /HPF Urine WBC (0-5/HPF) /HPF Ur Epithelial Cells /HPF Urine Bacteria (0-FEW/HPF) /HPF Urine Mucus /LPF Urine Opiates Screen (NEGATIVE) Ur Oxycodone Screen (NEGATIVE) Urine Methadone Screen (NEGATIVE) Ur Barbiturates Screen (NEGATIVE) U Tricyclic Antidepress (NEGATIVE) Ur Phencyclidine Scrn (NEGATIVE) Ur Amphetamine Screen (NEGATIVE) U Methamphetamines Scrn (NEGATIVE) Urine MDMA Screen (NEGATIVE) U Benzodiazepines Scrn (NEGATIVE) Urine Cocaine Screen (NEGATIVE) U Marijuana (THC) Screen (NEGATIVE) Meds: Medications Generic Name Dose Route Start Last Admin Trade Name Freq PRN Reason Stop Dose Admin Sodium Chloride 10 ml 07/14/17 09:51 07/14/17 09:57 Saline Flush FLUSH 10 ml ASDIRECTED PRN Administration Keep Vein Open Discontinued Medications Generic Name Dose Route Start Last Admin Trade Name Freq PRN Reason Stop Dose Admin Hydromorphone HCl 1 mg 07/14/17 09:59 07/14/17 10:14 Dilaudid IVPUSH 07/14/17 10:00 1 mg ONETIME ONE Administration Sodium Chloride 1,000 mls @ 999 mls/hr 07/14/17 09:59 07/14/17 10:07 Normal Saline IV 07/14/17 10:59 999 mls/hr .BOLUS ONE Administration Ketorolac Tromethamine 30 mg 07/14/17 09:59 07/14/17 10:09 Toradol IVPUSH 07/14/17 10:00 30 mg ONETIME ONE Administration Ondansetron HCl 4 mg 07/14/17 09:59 07/14/17 10:07 Zofran IV 07/14/17 10:00 4 mg ONETIME ONE Administration - Re-Assessments/Exams Free Text/Narrative Re-Assessment/Exam: 07/14/17 11:25 Due to the excessive number of past CT the pt has had, and given stable VS and no concerning lab findings along with a benign exam, I have chosen to not obtain CT imaging for the pt's reported recent Dx of Rt kidney stones from a hospital in [place]. Departure - Departure Time of Disposition: 11:28 Disposition: Home, Self-Care 01 Condition: Fair Clinical Impression: Right kidney stone, Right sided abdominal pain, Right flank pain, Ureteric colic - Discharge Information Instructions: Kidney Stones, [id number], Flank Pain, [id number], Renal Colic, [id number] Forms: ED Department Discharge Additional Instructions: Rx: Percocet 5mg/325mg Rx: Promethazine 25mg Call your urologist clinic July 16 to see if your appointment can be moved to an earlier date due to the persistence and/or recurrent pain. - My Orders Last 24 Hours: My Active Orders 07/14/17 09:51 Peripheral IV Care [RC] . DIRECTED Sodium Chloride 0.9% [Saline Flush] 10 ml FLUSH ASDIRECTED PRN Peripheral IV Insertion Adult [OM.PC] Stat - Assessment/Plan Last 24 Hours: My Active Orders 07/14/17 09:51 Peripheral IV Care [RC] . DIRECTED Sodium Chloride 0.9% [Saline Flush] 10 ml FLUSH ASDIRECTED PRN Peripheral IV Insertion Adult [OM.PC] Stat
[2017-07-14 10:23] LABS: CHLORIDE,CL 104 mmol/L (101-111); SODIUM,NA 136 mmol/L (135-145)
[2017-07-14 12:05] VITALS: BP 103/53
== END 2017-07-14 12:04 | disposition home or self-care (01) ==
LOC: DL.ED 09:37
DX: N20.2 Calculus of kidney with calculus of ureter (principal); F17.210 Nicotine dependence, cigarettes, uncomplicated; Z88.1 Allergy status to other antibiotic agents; Z88.2 Allergy status to sulfonamides; Z88.6 Allergy status to analgesic agent; Z88.8 Allergy status to other drugs, medicaments and biological substances
CPT/HCPCS: 36415; 80048; 80305; 81001; 85025; 96361; 96374; 96375; 96376; 99284; J1170; J1885; J2405; J7030; J7050

== ENCOUNTER 2017-07-17 09:42 | Emergency (ER) | payer MEDICAID, OTHER ==
--- NOTE | 2017-07-17 10:11 | EDM.PDOC ---
ED HPI GENERAL MEDICAL PROBLEM - General Chief Complaint: Genitourinary Problem Stated Complaint: KIDNEY STONES CAN'T PASS URINE NORMALLY Time Seen by Provider: 07/17/17 10:10 Source of Information: Reports: Patient, Old Records, RN, RN Notes Reviewed History Limitations: Reports: No Limitations - History of Present Illness INITIAL COMMENTS - FREE TEXT/NARRATIVE: Arrives from home by POV with c/o Rt flank, Rt lower abd. pain radiating to groin/vaginal area. Pt seen in [place] last week, dx'd with kidney stones and has a f/u with urologist in [place] on August 10. Yesterday pt called urology clinic to try to move her appointment up to an earlier date, but no appt's were avail. so they asked her to call the clinic every day to check for cancellations. Pt reports onset of fevers yesterday. Pt has been exposed to an ill child who has fever with "strep and flu" sx's. 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) Right Flank Pain Score (Numeric/FACES): 10 - Related Data Allergies Allergy/AdvReac Type Severity Reaction Status Date / Time ceftriaxone [From Rocephin] Allergy Hives Verified 07/14/17 09:45 cefuroxime [From Ceftin] Allergy Hives Verified 07/14/17 09:45 celecoxib [From Celebrex] Allergy Hives Verified 07/14/17 09:45 doxycycline Allergy Airway Verified 07/14/17 09:45 Tightness erythromycin base Allergy Hives Verified 07/14/17 09:45 [Erythromycin Base] ibuprofen Allergy Swelling Verified 07/14/17 09:45 naproxen Allergy Airway Verified 07/14/17 09:45 Tightness sulfamethoxazole Allergy Hives Verified 07/14/17 09:45 [From Bactrim] trimethoprim [From Bactrim] Allergy Hives Verified 07/14/17 09:45 Home Meds: Home Meds Acetaminophen [Tylenol] 650 mg PO Q6H 05/21/17 [History] Past Medical History - Past Health History Medical/Surgical History: Denies Medical/Surgical History HEENT History: Reports: Impaired Vision Other HEENT History: wears corrective lenses Cardiovascular History: Reports: Other (See Below) Other Cardiovascular History: "heart stopped during surgery" Respiratory History: Reports: None Gastrointestinal History: Reports: Cholelithiasis Other Gastrointestinal History: diarrhea since 3 am Genitourinary History: Reports: Other (See Below) Other Genitourinary History: endometrosis, PCOS. 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 Psychiatric History: Reports: None Endocrine/Metabolic History: Reports: Other (See Below) Other Endocrine/Metabolic History: "insulin resistant" Hematologic History: Reports: None Immunologic History: Reports: None Oncologic (Cancer) History: Reports: Ovarian Dermatologic History: Reports: None - Infectious Disease History Infectious Disease History: Reports: C-Difficile Other Infectious Disease History: lyme disease. - Past Surgical History Head Surgeries/Procedures: Reports: None GI Surgical History: Reports: Appendectomy, Cholecystectomy Musculoskeletal Surgical History: Reports: None Social & Family History - Family History Family Medical History: Noncontributory Cardiac: Reports: None Respiratory: Reports: None GI: Reports: None Immunologic: Reports: None Dermatologic: Reports: None Oncologic: Reports: None - Tobacco Use Smoking Status *Q: Current Every Day Smoker Years of Tobacco use: 2 Packs/Tins Daily: 0.5 Used Tobacco, but Quit: Yes Month Tobacco Last Used: ? Second Hand Smoke Exposure: Yes - Caffeine Use Caffeine Use: Reports: None Caffeine Use Comment: mother states no caffeine use. - Alcohol Use Days Per Week of Alcohol Use: 0 - Recreational Drug Use Recreational Drug Use: No Drug Use in Last 12 Months: No - Living Situation & Occupation Living situation: Reports: with Family, Single Occupation: Unemployed ED ROS GENERAL - Review of Systems Review Of Systems: ROS reveals no pertinent complaints other than HPI. ED EXAM, RENAL/ - Physical Exam Exam: See Below Exam Limited By: No Limitations General Appearance: Alert, No Apparent Distress, Other (chronically ill. Appears uncomfortable but not toxic.) Nose: No Blood, Other (mild clear nasal drainage) Throat/Mouth: Normal Inspection, Normal Lips, Normal Teeth, Normal Gums, Normal Oropharynx, Normal Voice, No Airway Compromise Head: Atraumatic, Normocephalic Neck: Normal Inspection, Supple, Non-Tender, Full Range of Motion, Other (no nuchal rigidity). No: Lymphadenopathy (L), Lymphadenopathy (R) Respiratory/Chest: No Respiratory Distress, Lungs Clear, Normal Breath Sounds, No Accessory Muscle Use, Chest Non-Tender Cardiovascular: Regular Rate, Rhythm, No Edema, Tachycardia GI/Abdominal: Normal Bowel Sounds, Soft, No Distention, No Abnormal Bruit, Pelvis Stable, Tender (Rt sided abdomen without peritoneal signs). No: Guarding , Rigid, Rebound (Female) Exam: Deferred Rectal (Female) Exam: Deferred Back Exam: Full Range of Motion, CVA Tenderness (R). No: CVA Tenderness (L) Extremities: Normal Inspection Neurological: Alert, Oriented, No Motor/Sensory Deficits Psychiatric: Normal Affect, Normal Mood Skin Exam: Warm, Dry, Intact, Normal Color, No Rash Course - Vital Signs Last Recorded V/S: Last Vital Signs Temp 37.2 C 07/17/17 09:48 Pulse 116 H 07/17/17 09:48 Resp 18 07/17/17 09:48 BP 128/71 07/17/17 09:48 Pulse Ox 99 07/17/17 09:48 - Orders/Labs/Meds Orders: Active Orders 24 hr Category Date Time Status Peripheral IV Care [RC] . DIRECTED Care 07/17/17 10:20 Active CULTURE BLOOD [BC] Stat Lab 07/17/17 10:30 Received CULTURE BLOOD [BC] Stat Lab 07/17/17 10:41 Received CULTURE STREP A CONFIRMATION [] Stat Lab 07/17/17 10:48 Results CULTURE URINE [] Stat Lab 07/17/17 10:20 Received STREP SCRN A RAPID W CULT CONF [] Stat Lab 07/17/17 10:48 Results Sodium Chloride 0.9% [Saline Flush] Med 07/17/17 10:20 Active 10 ml FLUSH ASDIRECTED PRN Blood Culture x2 Reflex Set [OM.PC] Stat Oth 07/17/17 10:19 Ordered Peripheral IV Insertion Adult [OM.PC] Stat Oth 07/17/17 10:19 Ordered Medication Orders Sodium Chloride (Saline Flush) 10 ml FLUSH ASDIRECTED PRN PRN Reason: Keep Vein Open Labs: Laboratory Tests 07/17/17 07/17/17 07/17/17 Range/Units 10:20 10:30 10:30 WBC 8.9 (5.0-10.0) 10^3/uL RBC 4.53 (4.2-5.4) 10^6/uL Hgb 13.5 (12.0-16.0) g/dL Hct 40.7 (37.0-47.0) % MCV 89.8 (80-100) fL MCH 29.8 (27.0-34.0) pg MCHC 33.2 (33.0-35.0) g/dL Plt Count 310 (150-450) 10^3/uL Neut % (Auto) 74.0 (42.2-75.2) % Lymph % (Auto) 19.4 L (20.5-50.1) % Ness % (Auto) 5.9 (2-8) % Eos % (Auto) 0.5 L (1.0-3.0) % Baso % (Auto) 0.2 (0.0-1.0) % Sodium 138 (135-145) mmol/L Potassium 3.5 L (3.6-5.0) mmol/L Chloride 103 (101-111) mmol/L Carbon Dioxide 26.0 (21.0-31.0) mmol/L Anion Gap 12.5 BUN 11 (7-18) mg/dL Creatinine 0.6 (0.6-1.3) mg/dL Est Cr Clr Drug Dosing 108.26 mL/min Estimated GFR (MDRD) > 60 BUN/Creatinine Ratio 18.33 Glucose 87 (74-105) mg/dL Lactic Acid (0.5-2.2) mmol/L Calcium 9.3 (8.4-10.2) mg/dl Total Bilirubin 0.5 (0.2-1.0) mg/dL AST 22 (10-42) IU/L ALT 17 (10-60) IU/L Alkaline Phosphatase 54 (42-121) IU/L Total Protein 7.8 (6.7-8.2) g/dl Albumin 4.4 (3.2-5.5) g/dl Globulin 3.4 Albumin/Globulin Ratio 1.29 Amylase 49 (28-100) U/L Lipase 11 L (22-51) U/L Urine Color Yellow (YELLOW) Urine Appearance Slightly cloudy (CLEAR) Urine pH 6.0 (5.0-9.0) Ur Specific [place] 1.015 (1.005-1.030) Urine Protein Negative (NEGATIVE) Urine Glucose (UA) Negative (NEGATIVE) Urine Ketones 40 H (NEGATIVE) Urine Occult Blood Negative (NEGATIVE) Urine Nitrite Negative (NEGATIVE) Urine Bilirubin Small H (NEGATIVE) Urine Urobilinogen 0.2 (0.2-1.0) mg/dL Ur Leukocyte Esterase Negative (NEGATIVE) Urine RBC 0-5 /HPF Urine WBC 0-5 (0-5/HPF) /HPF Ur Epithelial Cells Rare /HPF Urine Bacteria Rare (0-FEW/HPF) /HPF Urine Mucus Moderate H /LPF 07/17/17 Range/Units 10:30 WBC (5.0-10.0) 10^3/uL RBC (4.2-5.4) 10^6/uL Hgb (12.0-16.0) g/dL Hct (37.0-47.0) % MCV (80-100) fL MCH (27.0-34.0) pg MCHC (33.0-35.0) g/dL Plt Count (150-450) 10^3/uL Neut % (Auto) (42.2-75.2) % Lymph % (Auto) (20.5-50.1) % Ness % (Auto) (2-8) % Eos % (Auto) (1.0-3.0) % Baso % (Auto) (0.0-1.0) % Sodium (135-145) mmol/L Potassium (3.6-5.0) mmol/L Chloride (101-111) mmol/L Carbon Dioxide (21.0-31.0) mmol/L Anion Gap BUN (7-18) mg/dL Creatinine (0.6-1.3) mg/dL Est Cr Clr Drug Dosing mL/min Estimated GFR (MDRD) BUN/Creatinine Ratio Glucose (74-105) mg/dL Lactic Acid 0.8 (0.5-2.2) mmol/L Calcium (8.4-10.2) mg/dl Total Bilirubin (0.2-1.0) mg/dL AST (10-42) IU/L ALT (10-60) IU/L Alkaline Phosphatase (42-121) IU/L Total Protein (6.7-8.2) g/dl Albumin (3.2-5.5) g/dl Globulin Albumin/Globulin Ratio Amylase (28-100) U/L Lipase (22-51) U/L Urine Color (YELLOW) Urine Appearance (CLEAR) Urine pH (5.0-9.0) Ur Specific [place] (1.005-1.030) Urine Protein (NEGATIVE) Urine Glucose (UA) (NEGATIVE) Urine Ketones (NEGATIVE) Urine Occult Blood (NEGATIVE) Urine Nitrite (NEGATIVE) Urine Bilirubin (NEGATIVE) Urine Urobilinogen (0.2-1.0) mg/dL Ur Leukocyte Esterase (NEGATIVE) Urine RBC /HPF Urine WBC (0-5/HPF) /HPF Ur Epithelial Cells /HPF Urine Bacteria (0-FEW/HPF) /HPF Urine Mucus /LPF Meds: Medications Generic Name Dose Route Start Last Admin Trade Name Freq PRN Reason Stop Dose Admin Sodium Chloride 10 ml 07/17/17 10:20 Saline Flush FLUSH ASDIRECTED PRN Keep Vein Open Discontinued Medications Generic Name Dose Route Start Last Admin Trade Name Freq PRN Reason Stop Dose Admin Hydromorphone HCl 1 mg 07/17/17 10:21 07/17/17 11:18 Dilaudid IVPUSH 07/17/17 10:22 1 mg ONETIME ONE Administration Hydromorphone HCl 1 mg 07/17/17 11:45 Dilaudid IM 07/17/17 11:46 ONETIME ONE Sodium Chloride 1,000 mls @ 999 mls/hr 07/17/17 10:21 07/17/17 10:47 Normal Saline IV 07/17/17 11:21 999 mls/hr .BOLUS ONE Administration Ketorolac Tromethamine 30 mg 07/17/17 10:21 Toradol IVPUSH 07/17/17 10:22 ONETIME ONE Ondansetron HCl 4 mg 07/17/17 10:21 Zofran IV 07/17/17 10:22 ONETIME ONE Promethazine HCl 25 mg 07/17/17 11:46 Phenergan IM 07/17/17 11:47 ONETIME ONE Departure - Departure Time of Disposition: 12:07 Disposition: Home, Self-Care 01 Condition: Fair Clinical Impression: Kidney stones, Acute viral syndrome - Discharge Information Instructions: Kidney Stones, [id number], Viral Illness, Adult Forms: ED Department Discharge Additional Instructions: Rx: Promethazine 25mg Rx: Percocet 5mg/325mg Drink plenty of water. Follow up in clinic with your primary doctor next week for repeat urine test if unable to see your urologist earlier than August 10. - My Orders Last 24 Hours: My Active Orders 07/17/17 10:19 Blood Culture x2 Reflex Set [OM.PC] Stat Peripheral IV Insertion Adult [OM.PC] Stat 07/17/17 10:20 Peripheral IV Care [RC] . DIRECTED CULTURE URINE [RM] Stat Sodium Chloride 0.9% [Saline Flush] 10 ml FLUSH ASDIRECTED PRN 07/17/17 10:30 CULTURE BLOOD [BC] Stat 07/17/17 10:41 CULTURE BLOOD [BC] Stat 07/17/17 10:48 CULTURE STREP A CONFIRMATION [RM] Stat STREP SCRN A RAPID W CULT CONF [RM] Stat - Assessment/Plan Last 24 Hours: My Active Orders 07/17/17 10:19 Blood Culture x2 Reflex Set [OM.PC] Stat Peripheral IV Insertion Adult [OM.PC] Stat 07/17/17 10:20 Peripheral IV Care [RC] . DIRECTED CULTURE URINE [RM] Stat Sodium Chloride 0.9% [Saline Flush] 10 ml FLUSH ASDIRECTED PRN 07/17/17 10:30 CULTURE BLOOD [BC] Stat 07/17/17 10:41 CULTURE BLOOD [BC] Stat 07/17/17 10:48 CULTURE STREP A CONFIRMATION [RM] Stat STREP SCRN A RAPID W CULT CONF [RM] Stat
[2017-07-17] MEDS ORDERED: Sodium Chloride 0.9% 10 ML Syringe FLUSH PRN (10:20)
[2017-07-17] MEDS ORDERED: HYDROmorphone 1 MG/ML Syringe IVPUSH ONE (10:21)
[2017-07-17] MEDS ORDERED: Sodium Chloride 0.9% 1,000 ML IV ONE (10:21)
[2017-07-17] MEDS ORDERED: Ketorolac 30 MG/ML SDV IVPUSH ONE (10:21)
[2017-07-17] MEDS ORDERED: Ondansetron 4 MG/2 ML SDV IV ONE (10:21)
[2017-07-17 10:29] VITALS: BP 128/71
[2017-07-17 11:14] LABS: CHLORIDE,CL 103 mmol/L (101-111); SODIUM,NA 138 mmol/L (135-145)
[2017-07-17] MEDS ORDERED: HYDROmorphone 1 MG/ML Syringe IM ONE (11:45)
[2017-07-17] MEDS ORDERED: Promethazine 25 MG/ML SDV IM ONE (11:46)
== END 2017-07-17 12:38 | disposition home or self-care (01) ==
LOC: DL.ED 09:42
DX: N20.0 Calculus of kidney (principal); B34.9 Viral infection, unspecified; F17.210 Nicotine dependence, cigarettes, uncomplicated; Z88.1 Allergy status to other antibiotic agents; Z88.5 Allergy status to narcotic agent; Z88.2 Allergy status to sulfonamides
CPT/HCPCS: 36415; 80053; 81001; 82150; 83605; 83690; 85025; 87040; 87081; 87086; 87430; 87804; 96372; 99284; J1170; J2550; J7030

== ENCOUNTER 2017-08-08 12:13 | Emergency (ER) | payer MEDICAID, OTHER ==
[2017-08-08 12:31] VITALS: BP 116/74
[2017-08-08] MEDS ORDERED: Ondansetron 4 MG Tab.DIS PO ONE (12:31)
--- NOTE | 2017-08-08 12:42 | EDM.PDOC ---
ED HPI GENERAL MEDICAL PROBLEM - General Stated Complaint: KIDNEY STONES Time Seen by Provider: 08/08/17 12:28 Source of Information: Reports: Patient, RN, RN Notes Reviewed - History of Present Illness INITIAL COMMENTS - FREE TEXT/NARRATIVE: Jo is a 37 yo female who presents to the ED due to lower abd pain and dysuria that started last night. She reports that she has been having bilateral flank pain. She has been trying tylenol at home without relief. She has been having chills off and on. Denies fever. She reports nausea. Emesis x3. She denies chest pain, shortness of breath, constipation, diarrhea, or recent illness. She does have a significant history of kidney stones and has been seen in the ED due to this issue prior. She relates that she has not followed-up with the kidney specialist yet but states that she has an appointment this Sunday. She denies being sexually active. Denies vaginal discharge. She has had a total hysterectomy in the past. Onset Date: 08/07/17 Severity: Severe Improves with: Reports: Rest Worsens with: Reports: None Associated Symptoms: Reports: Fever/Chills, Nausea/Vomiting Lower Abdomen Pain Score (Numeric/FACES): 8 - Related Data Allergies Allergy/AdvReac Type Severity Reaction Status Date / Time ceftriaxone [From Rocephin] Allergy Hives Verified 07/14/17 09:45 cefuroxime [From Ceftin] Allergy Hives Verified 07/14/17 09:45 celecoxib [From Celebrex] Allergy Hives Verified 07/14/17 09:45 doxycycline Allergy Airway Verified 07/14/17 09:45 Tightness erythromycin base Allergy Hives Verified 07/14/17 09:45 [Erythromycin Base] ibuprofen Allergy Swelling Verified 07/14/17 09:45 naproxen Allergy Airway Verified 07/14/17 09:45 Tightness sulfamethoxazole Allergy Hives Verified 07/14/17 09:45 [From Bactrim] trimethoprim [From Bactrim] Allergy Hives Verified 07/14/17 09:45 Home Meds: Home Meds Acetaminophen [Tylenol] 650 mg PO Q6H 05/21/17 [History] Past Medical History - Past Health History Medical/Surgical History: Denies Medical/Surgical History HEENT History: Reports: Impaired Vision Other HEENT History: wears corrective lenses Cardiovascular History: Reports: Other (See Below) Other Cardiovascular History: "heart stopped during surgery" Respiratory History: Reports: None Gastrointestinal History: Reports: Cholelithiasis Other Gastrointestinal History: diarrhea since 3 am Genitourinary History: Reports: Other (See Below) Other Genitourinary History: endometrosis, PCOS. 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 Psychiatric History: Reports: None Endocrine/Metabolic History: Reports: Other (See Below) Other Endocrine/Metabolic History: "insulin resistant" Hematologic History: Reports: None Immunologic History: Reports: None Oncologic (Cancer) History: Reports: Ovarian Dermatologic History: Reports: None - Infectious Disease History Infectious Disease History: Reports: C-Difficile Other Infectious Disease History: lyme disease. - Past Surgical History Head Surgeries/Procedures: Reports: None GI Surgical History: Reports: Appendectomy, Cholecystectomy Musculoskeletal Surgical History: Reports: None Social & Family History - Family History Family Medical History: Noncontributory Cardiac: Reports: None Respiratory: Reports: None GI: Reports: None Immunologic: Reports: None Dermatologic: Reports: None Oncologic: Reports: None - Tobacco Use Smoking Status *Q: Current Every Day Smoker Years of Tobacco use: 2 Packs/Tins Daily: 0.5 Used Tobacco, but Quit: Yes Month/Year Tobacco Last Used: ? Second Hand Smoke Exposure: Yes - Caffeine Use Caffeine Use: Reports: None Caffeine Use Comment: mother states no caffeine use. - Alcohol Use Days Per Week of Alcohol Use: 0 - Recreational Drug Use Recreational Drug Use: No Drug Use in Last 12 Months: No - Living Situation & Occupation Living situation: Reports: with Family, Single Occupation: Unemployed ED ROS GENERAL - Review of Systems Review Of Systems: ROS reveals no pertinent complaints other than HPI. ED EXAM, GI/ABD - Physical Exam Exam: See Below Exam Limited By: No Limitations General Appearance: Alert, WD/WN, No Apparent Distress Eyes: Bilateral: Normal Appearance, EOMI Ears: Normal External Exam, Normal Canal, Hearing Grossly Normal, Normal TMs Nose: Normal Inspection, Normal Mucosa, No Blood Throat/Mouth: Normal Inspection, Normal Lips, Normal Teeth, Normal Gums, Normal Oropharynx, Normal Voice, No Airway Compromise Head: Atraumatic, Normocephalic Neck: Normal Inspection, Supple, Non-Tender, Full Range of Motion Respiratory/Chest: No Respiratory Distress, Lungs Clear, Normal Breath Sounds, No Accessory Muscle Use, Chest Non-Tender Cardiovascular: Normal Peripheral Pulses, Regular Rate, Rhythm, No Edema, No Gallop, No JVD, No Murmur, No Rub GI/Abdominal Exam: Normal Bowel Sounds, Soft, No Organomegaly, No Distention, No Abnormal Bruit, No Mass, Tender (Bilateral lower abd pain. ) (Female) Exam: Deferred Rectal (Female) Exam: Deferred Back Exam: Normal Inspection, Full Range of Motion, NT Extremities: Normal Inspection, Normal Range of Motion, Non-Tender, Normal Capillary Refill, No Pedal Edema Neurological: Alert, Oriented, CN II-XII Intact, Normal Cognition, Normal Gait, Normal Reflexes, No Motor/Sensory Deficits Psychiatric: Normal Affect, Normal Mood Skin Exam: Warm, Dry, Intact, Normal Color, No Rash Lymphatic: No Adenopathy Course - Vital Signs Last Recorded V/S: Last Vital Signs Temp 98 F 08/08/17 12:30 Pulse 92 08/08/17 12:30 Resp 24 H 08/08/17 12:30 BP 116/74 08/08/17 12:30 Pulse Ox 99 08/08/17 12:30 - Orders/Labs/Meds Orders: Active Orders 24 hr Category Date Time Status DRUG SCREEN URINE BIORAD [URCHEM] Stat Lab 08/08/17 12:30 Ordered UA W/MICROSCOPIC [URIN] Stat Lab 08/08/17 12:30 Ordered Labs: Laboratory Tests 08/08/17 08/08/17 08/08/17 Range/Units 12:38 12:38 12:57 WBC 9.0 (5.0-10.0) 10^3/uL RBC 4.50 (4.2-5.4) 10^6/uL Hgb 13.6 (12.0-16.0) g/dL Hct 40.5 (37.0-47.0) % MCV 90.0 (80-100) fL MCH 30.2 (27.0-34.0) pg MCHC 33.6 (33.0-35.0) g/dL Plt Count 287 (150-450) 10^3/uL Neut % (Auto) 69.9 (42.2-75.2) % Lymph % (Auto) 22.5 (20.5-50.1) % Mel[place] % (Auto) 6.9 (2-8) % Eos % (Auto) 0.6 L (1.0-3.0) % Baso % (Auto) 0.1 (0.0-1.0) % Sodium 137 (135-145) mmol/L Potassium 3.6 (3.6-5.0) mmol/L Chloride 105 (101-111) mmol/L Carbon Dioxide 24.0 (21.0-31.0) mmol/L Anion Gap 11.6 BUN 12 (7-18) mg/dL Creatinine 0.6 (0.6-1.3) mg/dL Est Cr Clr Drug Dosing 108.26 mL/min Estimated GFR (MDRD) > 60 BUN/Creatinine Ratio 20.00 Glucose 100 (74-105) mg/dL Calcium 9.5 (8.4-10.2) mg/dl Total Bilirubin 0.6 (0.2-1.0) mg/dL AST 22 (10-42) IU/L ALT 18 (10-60) IU/L Alkaline Phosphatase 50 (42-121) IU/L Total Protein 7.9 (6.7-8.2) g/dl Albumin 4.5 (3.2-5.5) g/dl Globulin 3.4 Albumin/Globulin Ratio 1.32 Urine Color Yellow (YELLOW) Urine Appearance Clear (CLEAR) Urine pH 7.0 (5.0-9.0) Ur Specific [place] 1.010 (1.005-1.030) Urine Protein Negative (NEGATIVE) Urine Glucose (UA) Negative (NEGATIVE) Urine Ketones Negative (NEGATIVE) Urine Occult Blood Negative (NEGATIVE) Urine Nitrite Negative (NEGATIVE) Urine Bilirubin Negative (NEGATIVE) Urine Urobilinogen 0.2 (0.2-1.0) mg/dL Ur Leukocyte Esterase Negative (NEGATIVE) Urine RBC 0-5 /HPF Urine WBC 0-5 (0-5/HPF) /HPF Ur Epithelial Cells Moderate H /HPF Urine Bacteria Rare (0-FEW/HPF) /HPF Urine Opiates Screen (NEGATIVE) Ur Oxycodone Screen (NEGATIVE) Urine Methadone Screen (NEGATIVE) Ur Barbiturates Screen (NEGATIVE) U Tricyclic Antidepress (NEGATIVE) Ur Phencyclidine Scrn (NEGATIVE) Ur Amphetamine Screen (NEGATIVE) U Methamphetamines Scrn (NEGATIVE) Urine MDMA Screen (NEGATIVE) U Benzodiazepines Scrn (NEGATIVE) Urine Cocaine Screen (NEGATIVE) U Marijuana (THC) Screen (NEGATIVE) 08/08/17 Range/Units 12:57 WBC (5.0-10.0) 10^3/uL RBC (4.2-5.4) 10^6/uL Hgb (12.0-16.0) g/dL Hct (37.0-47.0) % MCV (80-100) fL MCH (27.0-34.0) pg MCHC (33.0-35.0) g/dL Plt Count (150-450) 10^3/uL Neut % (Auto) (42.2-75.2) % Lymph % (Auto) (20.5-50.1) % [place] % (Auto) (2-8) % Eos % (Auto) (1.0-3.0) % Baso % (Auto) (0.0-1.0) % Sodium (135-145) mmol/L Potassium (3.6-5.0) mmol/L Chloride (101-111) mmol/L Carbon Dioxide (21.0-31.0) mmol/L Anion Gap BUN (7-18) mg/dL Creatinine (0.6-1.3) mg/dL Est Cr Clr Drug Dosing mL/min Estimated GFR (MDRD) BUN/Creatinine Ratio Glucose (74-105) mg/dL Calcium (8.4-10.2) mg/dl Total Bilirubin (0.2-1.0) mg/dL AST (10-42) IU/L ALT (10-60) IU/L Alkaline Phosphatase (42-121) IU/L Total Protein (6.7-8.2) g/dl Albumin (3.2-5.5) g/dl Globulin Albumin/Globulin Ratio Urine Color (YELLOW) Urine Appearance (CLEAR) Urine pH (5.0-9.0) Ur Specific [place] (1.005-1.030) Urine Protein (NEGATIVE) Urine Glucose (UA) (NEGATIVE) Urine Ketones (NEGATIVE) Urine Occult Blood (NEGATIVE) Urine Nitrite (NEGATIVE) Urine Bilirubin (NEGATIVE) Urine Urobilinogen (0.2-1.0) mg/dL Ur Leukocyte Esterase (NEGATIVE) Urine RBC /HPF Urine WBC (0-5/HPF) /HPF Ur Epithelial Cells /HPF Urine Bacteria (0-FEW/HPF) /HPF Urine Opiates Screen Negative (NEGATIVE) Ur Oxycodone Screen Positive H (NEGATIVE) Urine Methadone Screen Negative (NEGATIVE) Ur Barbiturates Screen Negative (NEGATIVE) U Tricyclic Antidepress Negative (NEGATIVE) Ur Phencyclidine Scrn Negative (NEGATIVE) Ur Amphetamine Screen Negative (NEGATIVE) U Methamphetamines Scrn Negative (NEGATIVE) Urine MDMA Screen Negative (NEGATIVE) U Benzodiazepines Scrn Negative (NEGATIVE) Urine Cocaine Screen Negative (NEGATIVE) U Marijuana (THC) Screen Positive H (NEGATIVE) Meds: Medications Discontinued Medications Generic Name Dose Route Start Last Admin Trade Name Freq PRN Reason Stop Dose Admin Hydromorphone HCl 1 mg 08/08/17 13:22 Dilaudid IM 08/08/17 13:23 ONETIME ONE Ondansetron HCl 4 mg 08/08/17 12:31 08/08/17 13:24 Zofran Odt PO 08/08/17 12:32 4 mg ONETIME ONE Administration Departure - Departure Time of Disposition: 13:35 Disposition: Home, Self-Care 01 Condition: Good Clinical Impression: Lower abdominal pain - Discharge Information Instructions: Abdominal Pain, Adult Forms: ED Department Discharge Care Plan Goals: Follow-up with your kidney doctor as scheduled this week. Percocet as needed for pain Drink plenty of fluids Follow-up as needed with your primary care provider
[2017-08-08 13:04] LABS: CHLORIDE,CL 105 mmol/L (101-111); SODIUM,NA 137 mmol/L (135-145)
[2017-08-08] MEDS ORDERED: HYDROmorphone 0.5 MG/0.5 ML Syringe IM ONE (13:22)
== END 2017-08-08 14:00 | disposition home or self-care (01) ==
LOC: DL.ED 12:13
DX: R10.30 Lower abdominal pain, unspecified (principal); F17.210 Nicotine dependence, cigarettes, uncomplicated; Z88.1 Allergy status to other antibiotic agents; Z88.8 Allergy status to other drugs, medicaments and biological substances; Z88.2 Allergy status to sulfonamides
CPT/HCPCS: 36415; 80053; 80305; 81001; 85025; 96372; 99283; A9270; J1170

== ENCOUNTER 2017-11-20 22:55 | Emergency (ER) | payer MEDICAID, OTHER, SELFPAY ==
[2017-11-20] MEDS ORDERED: Cyclobenzaprine 10 MG Tab PO ONE (22:56)
[2017-11-20 23:31] VITALS: BP 113/69
[2017-11-21] MEDS ORDERED: Acetaminophen/HYDROcodone 325-10 MG Tab PO ONE (01:36)
[2017-11-21] MEDS ORDERED: Cyclobenzaprine 10 MG Tab ONE (01:52)
--- NOTE | 2017-11-21 01:55 | EDM.PDOC ---
ED HPI GENERAL MEDICAL PROBLEM - General Chief Complaint: Upper Extremity Injury/Pain Stated Complaint: SHOULDER/COLLAR BONE/HEAD INJURY [id number] Time Seen by Provider: 11/20/17 23:45 Source of Information: Reports: Patient History Limitations: Reports: No Limitations - History of Present Illness INITIAL COMMENTS - FREE TEXT/NARRATIVE: ED with mother c/o pain to right shouder, neck head and clavicle area for past 2 hours after being caught between two horses large and small lily horse. Lily kicked her in knee and reported to have stepped on her. No loss of consciousness but knocked to ground. Has not tried anything for pain. Onset: Today Right Clavicle Pain Score (Numeric/FACES): 9 - Related Data Allergies Allergy/AdvReac Type Severity Reaction Status Date / Time ceftriaxone [From Rocephin] Allergy Hives Verified 11/20/17 23:28 cefuroxime [From Ceftin] Allergy Hives Verified 11/20/17 23:28 celecoxib [From Celebrex] Allergy Hives Verified 11/20/17 23:28 doxycycline Allergy Airway Verified 11/20/17 23:28 Tightness erythromycin base Allergy Hives Verified 11/20/17 23:28 [Erythromycin Base] ibuprofen Allergy Swelling Verified 11/20/17 23:28 naproxen Allergy Airway Verified 11/20/17 23:28 Tightness sulfamethoxazole Allergy Hives Verified 11/20/17 23:28 [From Bactrim] trimethoprim [From Bactrim] Allergy Hives Verified 11/20/17 23:28 Home Meds: Home Meds Acetaminophen [Tylenol] 650 mg PO Q6H 05/21/17 [History] Past Medical History - Past Health History Medical/Surgical History: Denies Medical/Surgical History HEENT History: Reports: Impaired Vision Other HEENT History: wears corrective lenses Cardiovascular History: Reports: Other (See Below) Other Cardiovascular History: "heart stopped during surgery" Respiratory History: Reports: None Gastrointestinal History: Reports: Cholelithiasis Other Gastrointestinal History: diarrhea since 3 am Genitourinary History: Reports: Other (See Below) Other Genitourinary History: endometrosis, PCOS [employer]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 Psychiatric History: Reports: None Endocrine/Metabolic History: Reports: Other (See Below) Other Endocrine/Metabolic History: "insulin resistant" Hematologic History: Reports: None Immunologic History: Reports: None Oncologic (Cancer) History: Reports: Ovarian Dermatologic History: Reports: None - Infectious Disease History Infectious Disease History: Reports: C-Difficile Other Infectious Disease History: lyme disease. - Past Surgical History Head Surgeries/Procedures: Reports: None GI Surgical History: Reports: Appendectomy, Cholecystectomy Musculoskeletal Surgical History: Reports: None Social & Family History - Family History Family Medical History: Noncontributory Cardiac: Reports: None Respiratory: Reports: None GI: Reports: None Immunologic: Reports: None Dermatologic: Reports: None Oncologic: Reports: None - Tobacco Use Smoking Status *Q: Unknown Ever Smoked - Caffeine Use Caffeine Use: Reports: None Caffeine Use Comment: mother states no caffeine use. - Recreational Drug Use Recreational Drug Use: No - Living Situation & Occupation Living situation: Reports: with Family, Single Occupation: Unemployed Review of Systems - Review of Systems Review Of Systems: ROS reveals no pertinent complaints other than HPI. ED EXAM, GENERAL - Physical Exam Exam: See Below Exam Limited By: No Limitations General Appearance: Alert, Mild Distress (lying on exam cart quiet until stff present then crying. ), Thin Eye Exam: Bilateral Eye: EOMI, PERRL Ears: Normal External Exam, Normal Canal, Normal TMs Nose: Normal Inspection Throat/Mouth: Normal Inspection Head: Atraumatic, Normocephalic, Facial Tenderness Neck: Tender Lateral, Tender Midline Respiratory/Chest: No Respiratory Distress, Lungs Clear, Normal Breath Sounds Cardiovascular: Normal Peripheral Pulses, Regular Rate, Rhythm GI/Abdominal: Normal Bowel Sounds, Soft, Non-Tender (with distraction). No: Distended Back Exam: No: Vertebral Tenderness Extremities: Arm Pain (right clavicle), Limited Range of Motion Neurological: Alert, Oriented, Normal Cognition Psychiatric: Flat Affect, Tearful, Other (per usual patient offers little information. Mother always present and answers questions for patient. ) Skin Exam: Warm, Dry, Intact, Normal Color. No: Ecchymosis (mother pointing to multiple areas on legs and left cheek for bruised area and none visible or noted tender with palpation. ) Course - Vital Signs Last Recorded V/S: Last Vital Signs Temp 98.0 F 11/20/17 23:29 Pulse 86 11/20/17 23:29 Resp 16 11/20/17 23:29 BP 113/69 11/20/17 23:29 Pulse Ox 97 11/20/17 23:29 - Orders/Labs/Meds Meds: Medications Discontinued Medications Generic Name Dose Route Start Last Admin Trade Name Addy PRN Reason Stop Dose Admin Hydrocodone Bitart/Acetaminophen 1 tab 11/21/17 01:36 11/21/17 01:41 Marlette 325-10 Mg PO 11/21/17 01:37 1 tab ONETIME ONE Administration Cyclobenzaprine HCl Confirm 11/21/17 01:52 Flexeril Administered 11/21/17 01:53 Dose 20 mg .ROUTE .STK-MED ONE Cyclobenzaprine HCl 20 mg 11/20/17 22:56 Flexeril PO 11/20/17 22:57 .STK-MED ONE - Radiology Interpretation Free Text/Narrative:: CT head and neck including clavicle negative. - Re-Assessments/Exams Free Text/Narrative Re-Assessment/Exam: Patient placed in c-collar with initial arrival c/o of neck pain. Removed upon receipt of Cervical CT report that was negative. Patient replaced c-collar herself prior to discharge for comfort when sitting up. Departure - Departure Time of Disposition: 01:51 Disposition: Home, Self-Care 01 Condition: Good Clinical Impression: Neck pain, Clavicle pain, Multiple contusions Struck by horse Qualifiers: Encounter type: initial encounter Qualified Code(s): W55.12XA - Struck by horse , initial encounter - Discharge Information *PRESCRIPTION DRUG MONITORING PROGRAM REVIEWED*: Yes *COPY OF PRESCRIPTION DRUG MONITORING REPORT IN PATIENT KENIA: No Instructions: Cervical Sprain, [id number] Forms: ED Department Discharge Additional Instructions: flexeril 10mg one every 8 hours as needed for muscle spasm hydrocodone 10/325 one every 8 hours as needed for severe pain ice to bruised area follow up if symptoms worsen head injury instructions
== END 2017-11-21 02:02 | disposition home or self-care (01) ==
LOC: DL.ED 22:55
DX: S80.12XA Contusion of left lower leg, initial encounter (principal); S80.11XA Contusion of right lower leg, initial encounter; S00.83XA Contusion of other part of head, initial encounter; M25.511 Pain in right shoulder; M54.2 Cervicalgia; Z88.1 Allergy status to other antibiotic agents; Z88.6 Allergy status to analgesic agent; Z88.2 Allergy status to sulfonamides; W55.12XA Struck by horse, initial encounter
CPT/HCPCS: 70450; 72125; 99284; A9270

== ENCOUNTER 2018-05-26 11:06 | Emergency (ER) | payer MEDICAID, OTHER ==
[2018-05-26 11:16] VITALS: BP 123/95
--- NOTE | 2018-05-26 11:38 | EDM.PDOC ---
ED HPI GENERAL MEDICAL PROBLEM - General Chief Complaint: Upper Extremity Injury/Pain Stated Complaint: DISLOCATED SHOULDER [id number] Time Seen by Provider: 05/26/18 11:30 Source of Information: Reports: Patient History Limitations: Reports: No Limitations - History of Present Illness INITIAL COMMENTS - FREE TEXT/NARRATIVE: Patient comes emergency department today with complaints of fall and injury to her right chest and right arm. History taking of this is somewhat difficult as the consistency of her story is that it is inconsistent. It sounds like either yesterday or couple of days ago she slipped getting out of the car on some ice falling landing on her right rib cage and hitting her arm on the car as she fell. She was either in the mixer driver's side of the passenger side her story changes as I ask. She did not hit her head. She had no loss of consciousness and she has no head neck or back pain. She complains of no shortness of breath or difficulty breathing or chest pain but she does complain of rib pain on the right side as well as right shoulder and right humerus pain. She did initially have some numbness and tingling to her right upper extremity but this is resolved. She has tried some Tylenol with minimal improvement. Right Shoulder Pain Score (Numeric/FACES): 7 - Related Data Allergies Allergy/AdvReac Type Severity Reaction Status Date / Time ceftriaxone [From Rocephin] Allergy Hives Verified 05/26/18 11:16 cefuroxime [From Ceftin] Allergy Hives Verified 05/26/18 11:16 celecoxib [From Celebrex] Allergy Hives Verified 05/26/18 11:16 doxycycline Allergy Airway Verified 05/26/18 11:16 Tightness erythromycin base Allergy Hives Verified 05/26/18 11:16 [Erythromycin Base] ibuprofen Allergy Swelling Verified 05/26/18 11:16 naproxen Allergy Airway Verified 05/26/18 11:16 Tightness sulfamethoxazole Allergy Hives Verified 05/26/18 11:16 [From Bactrim] tramadol Allergy Rash Verified 05/26/18 14:06 trimethoprim [From Bactrim] Allergy Hives Verified 05/26/18 11:16 Home Meds: Home Meds Acetaminophen [Tylenol] 650 mg PO Q6H 05/21/17 [History] Past Medical History - Past Health History Medical/Surgical History: Denies Medical/Surgical History HEENT History: Reports: Impaired Vision Other HEENT History: wears corrective lenses Cardiovascular History: Reports: Other (See Below) Other Cardiovascular History: "heart stopped during surgery" Respiratory History: Reports: None Gastrointestinal History: Reports: Cholelithiasis Other Gastrointestinal History: diarrhea since 3 am Genitourinary History: Reports: Other (See Below) Other Genitourinary History: endometrosis, PCOS [employer] History: Reports: Endometriosis, Polycystic Ovaries Other [employer] History: endometriosis, 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 Psychiatric History: Reports: None Endocrine/Metabolic History: Reports: Other (See Below) Other Endocrine/Metabolic History: "insulin resistant" Hematologic History: Reports: None Immunologic History: Reports: None Oncologic (Cancer) History: Reports: Ovarian Dermatologic History: Reports: None - Infectious Disease History Infectious Disease History: Reports: C-Difficile Other Infectious Disease History: lyme disease. - Past Surgical History Head Surgeries/Procedures: Reports: None GI Surgical History: Reports: Appendectomy, Cholecystectomy Musculoskeletal Surgical History: Reports: None Social & Family History - Family History Family Medical History: Noncontributory Cardiac: Reports: None Respiratory: Reports: None GI: Reports: None Immunologic: Reports: None Dermatologic: Reports: None Oncologic: Reports: None - Tobacco Use Smoking Status *Q: Current Every Day Smoker Years of Tobacco use: 20 Packs/Tins Daily: 0.5 Second Hand Smoke Exposure: No - Caffeine Use Caffeine Use: Reports: None Caffeine Use Comment: mother states no caffeine use. - Recreational Drug Use Recreational Drug Use: No - Living Situation & Occupation Living situation: Reports: with Family, Single Occupation: Unemployed Review of Systems - Review of Systems Review Of Systems: ROS reveals no pertinent complaints other than HPI. ED EXAM, GENERAL - Physical Exam Exam: See Below Free Text/Narrative:: The patient's pain is inconsistent with exam. She complains of tenderness over areas on her right rib cage even when I'm not touching the patient. Exam Limited By: No Limitations General Appearance: Alert, WD/WN, No Apparent Distress Eye Exam: Bilateral Eye: Normal Inspection, PERRL Ears: Normal External Exam, Normal Canal, Hearing Grossly Normal, Normal TMs Nose: Normal Inspection, Normal Mucosa Throat/Mouth: Normal Inspection, Normal Lips Head: Atraumatic, Normocephalic Neck: Normal Inspection, Supple, Non-Tender, Full Range of Motion Respiratory/Chest: No Respiratory Distress, Lungs Clear, Normal Breath Sounds, No Accessory Muscle Use. No: Chest Non-Tender (She has tenderness in the region of the right fifth and sixth intercostal space without any bruising swelling ecchymosis subcutaneous emphysema or crepitus.), Respiratory Distress, Accessory Muscle Use, Retractions Cardiovascular: Normal Peripheral Pulses, Regular Rate, Rhythm Peripheral Pulses: 2+: Brachial (L), Brachial (R), Radial (L), Radial (R) GI/Abdominal: Normal Bowel Sounds, Soft, Pelvis Stable (Female) Exam: Deferred Rectal (Female) Exam: Deferred Back Exam: Normal Inspection, Other (The back is nontraumatic no bruising swelling ecchymosis bony deformity or subcutaneous emphysema or crepitus.). No : CVA Tenderness (L), CVA Tenderness (R), Muscle Spasm, Paraspinal Tenderness, Vertebral Tenderness Extremities: Normal Inspection, Normal Range of Motion, Non-Tender (She has tenderness throughout the entirety of the right shoulder except for the scapula. She has tenderness to the humerus. There is no bruising swelling ecchymosis bony deformities or crepitus. She has normal range of motion she has normal strength abduction and abduction.), Normal Capillary Refill Neurological: Alert, Oriented, CN II-XII Intact, Normal Cognition, Normal Reflexes, No Motor/Sensory Deficits Psychiatric: Normal Affect, Normal Mood Skin Exam: Warm, Dry, Intact, Normal Color, No Rash Course - Vital Signs Last Recorded V/S: Last Vital Signs Temp 37.0 C 05/26/18 11:11 Pulse 81 05/26/18 11:11 Resp 16 05/26/18 11:11 BP 123/95 H 05/26/18 11:11 Pulse Ox 99 05/26/18 11:11 - Orders/Labs/Meds Meds: Medications Discontinued Medications Generic Name Dose Route Start Last Admin Trade Name Freq PRN Reason Stop Dose Admin Orphenadrine Citrate 60 mg 05/26/18 11:38 05/26/18 11:52 Norflex IM 05/26/18 11:39 60 mg NOW STA Administration - Radiology Interpretation Free Text/Narrative:: X-ray per radiology of the shoulder humerus as well as chest rib detail no acute findings. - Re-Assessments/Exams Free Text/Narrative Re-Assessment/Exam: 05/26/18 17:12 I explained the patient and not finding any traumatic findings on exam or change in physical function and the radiological review is negative as well. She has normal neurovascular and normal range of motion and movement of the arm unsure of what is causing all of her pain. I will put her arm in a sling for comfort and offer her some tramadol for which she refuses as she states that she is allergic to it although she does not list this as an allergy. Without any evidence of acute injury traumatic findings I do not feel comfortable prescribing anything stronger without any identified pathology. She is comfortable with Tylenol in the sling and if she is not improving in the next couple of days she is to see orthophoric complaints Departure - Departure Time of Disposition: 13:37 Disposition: Home, Self-Care 01 Clinical Impression: Fall Qualifiers: Encounter type: initial encounter Qualified Code(s): W19.XXXA - Unspecified fall, initial encounter Shoulder injury Qualifiers: Encounter type: initial encounter Laterality: right Qualified Code(s): S49.91XA - Unspecified injury of right shoulder and upper arm, initial encounter - Discharge Information Instructions: Shoulder Pain, [id number], Pain Medicine Instructions, Easy-to- Read, RICE for Routine Care of Injuries Referrals: PCP,None [Primary Care Provider] - Forms: ED Department Discharge Additional Instructions: Tylenol and or Ibuprofen as needed for pain. RICE therapy to the area of injury. Right arm in sling for comfort. If pain not controlled with above. Tramadol 1 tablet three times a day as needed for pain. Caution sedation. #12. RX given to the patient. Return to the ED if new or worsening symptoms Follow up with ortho in the next week if not improving sooner if worse. - Assessment/Plan Assessment:: Fall Right shoulder rib pain Plan: Tylenol and or Ibuprofen as needed for pain. RICE therapy to the area of injury. Right arm in sling for comfort. If pain not controlled with above. Tramadol 1 tablet three times a day as needed for pain. Caution sedation. #12. RX given to the patient. Return to the ED if new or worsening symptoms Follow up with ortho in the next week if not improving sooner if worse.
== END 2018-05-26 14:06 | disposition home or self-care (01) ==
LOC: DL.ED 11:06
DX: S49.91XA Unspecified injury of right shoulder and upper arm, initial encounter (principal); F17.210 Nicotine dependence, cigarettes, uncomplicated; Z88.8 Allergy status to other drugs, medicaments and biological substances; Z88.1 Allergy status to other antibiotic agents; W19.XXXA Unspecified fall, initial encounter
CPT/HCPCS: 71101; 73030; 73060; 96372; 99284; J2360

== ENCOUNTER 2018-08-18 15:25 | Emergency (ER) | payer SELFPAY ==
[2018-08-18 15:32] VITALS: BP 112/85
[2018-08-18] MEDS ORDERED: Sodium Chloride 0.9% 1,000 ML IV ONE (15:41)
[2018-08-18] MEDS ORDERED: Ondansetron 4 MG/2 ML SDV IV ONE ×2 (15:41→16:55)
[2018-08-18] MEDS ORDERED: HYDROmorphone 1 MG/ML Syringe IVPUSH ONE (15:41)
[2018-08-18] MEDS ORDERED: Ketorolac 30 MG/ML SDV IVPUSH ONE (15:42)
[2018-08-18 16:04] LABS: CHLORIDE,CL 104 mmol/L (101-111); SODIUM,NA 136 mmol/L (135-145)
[2018-08-18] MEDS ORDERED: Magnesium Citrate Solution 296 ML Bottle PO ONE (16:55)
--- NOTE | 2018-08-18 16:55 | EDM.PDOC ---
Scribed by Yessica Nelson 08/18/18 1618 for Prateek Clark MD ED HPI GENERAL MEDICAL PROBLEM - General Chief Complaint: Abdominal Pain Stated Complaint: KIDNEY STONE? [id number] Time Seen by Provider: 08/18/18 15:35 Source of Information: Reports: Patient, RN, RN Notes Reviewed History Limitations: Reports: No Limitations - History of Present Illness INITIAL COMMENTS - FREE TEXT/NARRATIVE: Patient presents to ER with complaint of abdominal pain. She thinks she may have a kidney stone. Pt reports onset of generalized abdominal pain 2 days ago. She has developed nausea today. Hx of lap. suzan, appy, and Hyst. Also Hx of kidney stones. Onset: Gradual Onset Date: 08/16/18 Duration: Getting Worse, Intermittent, Waxing/Waning Location: Reports: Abdomen, Other (Rt flank) Quality: Reports: Ache, Same as Previous Episode Severity: Severe Improves with: Reports: None Worsens with: Reports: None Associated Symptoms: Reports: No Other Symptoms Right Lower Abdominal Pain Score (Numeric/FACES): 9 - Related Data Allergies Allergy/AdvReac Type Severity Reaction Status Date / Time ceftriaxone [From Rocephin] Allergy Hives Verified 08/18/18 15:32 cefuroxime [From Ceftin] Allergy Hives Verified 08/18/18 15:32 celecoxib [From Celebrex] Allergy Hives Verified 08/18/18 15:32 doxycycline Allergy Airway Verified 08/18/18 15:32 Tightness erythromycin base Allergy Hives Verified 08/18/18 15:32 [Erythromycin Base] ibuprofen Allergy Swelling Verified 08/18/18 15:32 naproxen Allergy Airway Verified 08/18/18 15:32 Tightness sulfamethoxazole Allergy Hives Verified 08/18/18 15:32 [From Bactrim] tramadol Allergy Rash Verified 08/18/18 15:32 trimethoprim [From Bactrim] Allergy Hives Verified 08/18/18 15:32 Home Meds: Home Meds . [No Known Home Meds] 08/18/18 [History] Past Medical History - Past Health History Medical/Surgical History: Denies Medical/Surgical History HEENT History: Reports: Impaired Vision Other HEENT History: wears corrective lenses Cardiovascular History: Reports: Other (See Below) Other Cardiovascular History: "heart stopped during surgery" Respiratory History: Reports: None Gastrointestinal History: Reports: Cholelithiasis Other Gastrointestinal History: diarrhea since 3 am Genitourinary History: Reports: Other (See Below) Other Genitourinary History: endometrosis, PCOS [employer] History: Reports: Endometriosis, Polycystic Ovaries Other [employer] History: endometriosis, 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 Psychiatric History: Reports: None Endocrine/Metabolic History: Reports: Other (See Below) Other Endocrine/Metabolic History: "insulin resistant" Hematologic History: Reports: None Immunologic History: Reports: None Oncologic (Cancer) History: Reports: Ovarian Dermatologic History: Reports: None - Infectious Disease History Infectious Disease History: Reports: C-Difficile Other Infectious Disease History: lyme disease. - Past Surgical History Head Surgeries/Procedures: Reports: None GI Surgical History: Reports: Appendectomy, Cholecystectomy Musculoskeletal Surgical History: Reports: None Social & Family History - Family History Family Medical History: Noncontributory Cardiac: Reports: None Respiratory: Reports: None GI: Reports: None Immunologic: Reports: None Dermatologic: Reports: None Oncologic: Reports: None - Tobacco Use Smoking Status *Q: Current Every Day Smoker Years of Tobacco use: 15 Packs/Tins Daily: 0.1 Second Hand Smoke Exposure: Yes - Caffeine Use Caffeine Use: Reports: None Caffeine Use Comment: mother states no caffeine use. - Recreational Drug Use Recreational Drug Use: No - Living Situation & Occupation Living situation: Reports: with Family, Single Occupation: Disabled ED ROS GENERAL - Review of Systems Review Of Systems: ROS reveals no pertinent complaints other than HPI. ED EXAM, GI/ABD - Physical Exam Exam: See Below Exam Limited By: No Limitations General Appearance: Alert, WD/WN, No Apparent Distress, Other (Uncomfortable appearing) Eyes: Bilateral: Normal Appearance (No scleral icterus) Nose: Normal Inspection Throat/Mouth: Normal Inspection, Normal Voice, No Airway Compromise Head: Atraumatic, Normocephalic Neck: Normal Inspection Respiratory/Chest: No Respiratory Distress, Lungs Clear, Normal Breath Sounds, No Accessory Muscle Use, Chest Non-Tender Cardiovascular: Regular Rate, Rhythm GI/Abdominal Exam: Normal Bowel Sounds, Soft, No Abnormal Bruit, Tender (gen. abd. tenderness, worse at RLQ). No: Guarding, Rigid, Rebound (Female) Exam: Deferred Rectal (Female) Exam: Deferred Back Exam: Full Range of Motion, CVA Tenderness (R). No: CVA Tenderness (L), Vertebral Tenderness Extremities: Normal Inspection Neurological: Alert, Oriented, CN II-XII Intact, Normal Cognition, Normal Gait, No Motor/Sensory Deficits Psychiatric: Normal Affect, Normal Mood Skin Exam: Warm, Dry, Intact, Normal Color, No Rash Course - Vital Signs Last Recorded V/S: Last Vital Signs Temp 36.5 C 08/18/18 15:28 Pulse 91 08/18/18 15:28 Resp 20 08/18/18 15:28 BP 112/85 08/18/18 15:28 Pulse Ox 100 08/18/18 15:28 - Orders/Labs/Meds Orders: Active Orders 24 hr Category Date Time Status Abdomen 2V AP Upright Decub [CR] Urgent Exams 08/18/18 16:09 Taken Labs: Laboratory Tests 08/18/18 08/18/18 08/18/18 Range/Units 15:35 15:38 15:38 WBC 10.8 H (5.0-10.0) 10^3/uL RBC 4.83 (4.2-5.4) 10^6/uL Hgb 14.5 (12.0-16.0) g/dL Hct 42.7 (37.0-47.0) % MCV 88.4 (80-100) fL MCH 30.0 (27.0-34.0) pg MCHC 34.0 (33.0-35.0) g/dL Plt Count 357 (150-450) 10^3/uL Neut % (Auto) 61.6 (42.2-75.2) % Lymph % (Auto) 27.8 (20.5-50.1) % Charlton % (Auto) 9.2 H (2-8) % Eos % (Auto) 1.2 (1.0-3.0) % Baso % (Auto) 0.2 (0.0-1.0) % Sodium 136 (135-145) mmol/L Potassium 4.0 (3.6-5.0) mmol/L Chloride 104 (101-111) mmol/L Carbon Dioxide 21.0 (21.0-31.0) mmol/L Anion Gap 15.0 BUN 16 (7-18) mg/dL Creatinine 0.7 (0.6-1.3) mg/dL Est Cr Clr Drug Dosing 91.49 mL/min Estimated GFR (MDRD) > 60 BUN/Creatinine Ratio 22.85 Glucose 72 L (74-105) mg/dL Calcium 9.3 (8.4-10.2) mg/dl Total Bilirubin 0.6 (0.2-1.0) mg/dL AST 23 (10-42) IU/L ALT 16 (10-60) IU/L Alkaline Phosphatase 71 (42-121) IU/L Total Protein 7.6 (6.7-8.2) g/dl Albumin 4.3 (3.2-5.5) g/dl Globulin 3.3 Albumin/Globulin Ratio 1.30 Urine Color Yellow (YELLOW) Urine Appearance Clear (CLEAR) Urine pH 7.0 (5.0-9.0) Ur Specific [place] 1.020 (1.005-1.030) Urine Protein Negative (NEGATIVE) Urine Glucose (UA) Negative (NEGATIVE) Urine Ketones Negative (NEGATIVE) Urine Occult Blood Negative (NEGATIVE) Urine Nitrite Negative (NEGATIVE) Urine Bilirubin Negative (NEGATIVE) Urine Urobilinogen 0.2 (0.2-1.0) mg/dL Ur Leukocyte Esterase Negative (NEGATIVE) Meds: Medications Discontinued Medications Generic Name Dose Route Start Last Admin Trade Name Zachq PRN Reason Stop Dose Admin Hydromorphone HCl 1 mg 08/18/18 15:41 08/18/18 15:51 Dilaudid IVPUSH 08/18/18 15:42 1 mg ONETIME ONE Administration Sodium Chloride 1,000 mls @ 999 mls/hr 08/18/18 15:41 08/18/18 15:50 Normal Saline IV 08/18/18 16:41 999 mls/hr .BOLUS ONE Administration Ketorolac Tromethamine 30 mg 08/18/18 15:42 08/18/18 15:50 Toradol IVPUSH 08/18/18 15:43 30 mg ONETIME ONE Administration Ondansetron HCl 4 mg 08/18/18 15:41 08/18/18 15:51 Zofran IV 08/18/18 15:42 4 mg ONETIME ONE Administration - Radiology Interpretation Free Text/Narrative:: [facility] Final Radiology Report Call: [phone] assistance Online chat: [email or web address] Name: PAULY MORALES Age: 38Years F Date: 08/18/2018 SSN: -- : 1980 Study: XR ABDOMEN 3 OR MORE VIEWS Requesting Physician: PRATEEK CLARK Images: 2 Addl Studies: Provided Clinical History: Contrast: Contrast Medium: Contrast Amount: Contrast Method: Page 1 of 2 EXAM: XR Abdomen, 3 or More Views EXAM DATE/TIME: 08/18/2018 4:19 PM CLINICAL HISTORY: 38 years old, female; Signs and symptoms; Other: RT sided pain, complains of bloating/distention TECHNIQUE: Imaging protocol: Frontal view of the abdomen/pelvis with upright view of the abdomen and one or more additional views. COMPARISON: No relevant prior studies available. FINDINGS: Gastrointestinal tract: The bowel gas pattern is nonobstructive and nonspecific. A large amount of stool is noted throughout the colon. Intraperitoneal space: Normal. No free air. Organs: There has been a cholecystectomy. Bones/joints: Unremarkable for age. IMPRESSION: 1. The bowel gas pattern is nonobstructive and nonspecific. 2. A large amount of stool is noted throughout the colon. Thank you for allowing us to participate in the care of your patient. Dictated and Authenticated by: Gutierrez Fajardo DO PAULY MORALES | Final Radiology Report CONFIDENTIALITY STATEMENT This report is intended only for use by the referring physician, and only in accordance with law. If you received this in error, call [phone]. Page 2 of 2 08/18/2018 4:37 PM Central Time ([place] & [place]) Departure - Departure Time of Disposition: 16:53 Disposition: Home, Self-Care 01 Condition: Fair Clinical Impression: Abdominal pain Qualifiers: Abdominal location: right lower quadrant Qualified Code(s): R10.31 - Right lower quadrant pain Constipation Qualifiers: Constipation type: other constipation type Qualified Code(s): K59.09 - Other constipation - Discharge Information *PRESCRIPTION DRUG MONITORING PROGRAM REVIEWED*: No *COPY OF PRESCRIPTION DRUG MONITORING REPORT IN PATIENT KENIA: No Instructions: Abdominal Pain, Adult, [id number], Constipation, Adult Forms: ED Department Discharge Additional Instructions: Magnesium Citrate Solution: Drink half bottle now, and drink second half of bottle tomorrow morning. Zofran 4mg Follow up in clinic if not improving in 2 days. - My Orders Last 24 Hours: My Active Orders 08/18/18 16:09 Abdomen 2V AP Upright Decub [CR] Urgent - Assessment/Plan Last 24 Hours: My Active Orders 08/18/18 16:09 Abdomen 2V AP Upright Decub [CR] Urgent I have read and agree with the documentation that has been completed regarding this visit. By signing this record, I attest that the documentation was completed in my physical presence and is an accurate record of the encounter.
[2018-08-18] MEDS ORDERED: Lactulose Soln 10 GM/15 ML 30 ML UD Cup PO ONE (16:56)
== END 2018-08-18 17:10 | disposition home or self-care (01) ==
LOC: DL.ED 15:25
DX: K59.09 Other constipation (principal); F17.210 Nicotine dependence, cigarettes, uncomplicated; Z88.1 Allergy status to other antibiotic agents
CPT/HCPCS: 36415; 74021; 80053; 81003; 85025; 96374; 96375; 96376; 99284; A9270; J1170; J1885; J2405; J7030

== ENCOUNTER 2018-08-19 18:29 | Emergency (ER) | payer SELFPAY ==
[2018-08-19 19:01] VITALS: BP 106/73
[2018-08-19] MEDS ORDERED: Sodium Chloride 0.9% 1,000 ML IV ONE (19:27)
--- NOTE | 2018-08-19 19:38 | EDM.PDOC ---
ED HPI GENERAL MEDICAL PROBLEM - General Chief Complaint: Abdominal Pain Stated Complaint: STOMACH SWELLED Time Seen by Provider: 08/19/18 19:25 Source of Information: Reports: Patient History Limitations: Reports: No Limitations - History of Present Illness INITIAL COMMENTS - FREE TEXT/NARRATIVE: This 38 yo female patient report to the ED with right lower abdominal pain that started this evening. The patient was seen yesterday in the ED for constipation , but had 2 normal bowel movements today. The patient reports she does have a history of kidney stones with similar symptoms. Onset: Today Duration: Constant Location: Reports: Abdomen Quality: Reports: Ache, Sharp, Stabbing Severity: Moderate Improves with: Reports: None Worsens with: Reports: None Context: Reports: Other Associated Symptoms: Reports: No Other Symptoms Lower Abdominal Pain Score (Numeric/FACES): 9 - Related Data Allergies Allergy/AdvReac Type Severity Reaction Status Date / Time ceftriaxone [From Rocephin] Allergy Hives Verified 08/19/18 18:55 cefuroxime [From Ceftin] Allergy Hives Verified 08/19/18 18:55 celecoxib [From Celebrex] Allergy Hives Verified 08/19/18 18:55 doxycycline Allergy Airway Verified 08/19/18 18:55 Tightness erythromycin base Allergy Hives Verified 08/19/18 18:55 [Erythromycin Base] ibuprofen Allergy Swelling Verified 08/19/18 18:55 naproxen Allergy Airway Verified 08/19/18 18:55 Tightness sulfamethoxazole Allergy Hives Verified 08/19/18 18:55 [From Bactrim] tramadol Allergy Rash Verified 08/19/18 18:55 trimethoprim [From Bactrim] Allergy Hives Verified 08/19/18 18:55 Home Meds: Home Meds . [No Known Home Meds] 08/18/18 [History] Past Medical History - Past Health History Medical/Surgical History: Denies Medical/Surgical History HEENT History: Reports: Impaired Vision Other HEENT History: wears corrective lenses Cardiovascular History: Reports: Other (See Below) Other Cardiovascular History: "heart stopped during surgery" Respiratory History: Reports: None Gastrointestinal History: Reports: Cholelithiasis, Chronic Constipation Other Gastrointestinal History: diarrhea since 3 am Genitourinary History: Reports: Other (See Below) Other Genitourinary History: endometrosis, PCOS HEALTH INFORMATION TECHNOLOGIST History: Reports: Endometriosis, Polycystic Ovaries Other HEALTH INFORMATION TECHNOLOGIST History: endometriosis, 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 Psychiatric History: Reports: None Endocrine/Metabolic History: Reports: Other (See Below) Other Endocrine/Metabolic History: "insulin resistant" Hematologic History: Reports: None Immunologic History: Reports: None Oncologic (Cancer) History: Reports: Ovarian Dermatologic History: Reports: None - Infectious Disease History Infectious Disease History: Reports: C-Difficile Other Infectious Disease History: lyme disease. - Past Surgical History Head Surgeries/Procedures: Reports: None GI Surgical History: Reports: Appendectomy, Cholecystectomy Musculoskeletal Surgical History: Reports: None Social & Family History - Family History Family Medical History: Noncontributory Cardiac: Reports: None Respiratory: Reports: None GI: Reports: None Immunologic: Reports: None Dermatologic: Reports: None Oncologic: Reports: None - Tobacco Use Smoking Status *Q: Current Every Day Smoker Years of Tobacco use: 20 Packs/Tins Daily: 1 - Caffeine Use Caffeine Use: Reports: None Caffeine Use Comment: mother states no caffeine use. - Recreational Drug Use Recreational Drug Use: Yes - Living Situation & Occupation Living situation: Reports: with Family, Single Occupation: Disabled ED ROS GENERAL - Review of Systems Review Of Systems: ROS reveals no pertinent complaints other than HPI. ED EXAM, GI/ABD - Physical Exam Exam: See Below Exam Limited By: No Limitations General Appearance: Alert, WD/WN, Moderate Distress Eyes: Bilateral: Normal Appearance, EOMI Ears: Normal External Exam, Normal Canal, Hearing Grossly Normal, Normal TMs Nose: Normal Inspection, Normal Mucosa, No Blood Throat/Mouth: Normal Inspection, Normal Lips, Normal Teeth, Normal Gums, Normal Oropharynx, Normal Voice, No Airway Compromise Head: Atraumatic, Normocephalic Neck: Normal Inspection, Supple, Non-Tender, Full Range of Motion Respiratory/Chest: No Respiratory Distress, Lungs Clear, Normal Breath Sounds, No Accessory Muscle Use, Chest Non-Tender Cardiovascular: Normal Peripheral Pulses, Regular Rate, Rhythm, No Edema, No Gallop, No JVD, No Murmur, No Rub GI/Abdominal Exam: Normal Bowel Sounds, No Organomegaly, No Abnormal Bruit, No Mass, Pelvis Stable, Distended, Tender (rlq) (Female) Exam: Deferred Rectal (Female) Exam: Deferred Back Exam: Normal Inspection, Full Range of Motion, NT Extremities: Normal Inspection, Normal Range of Motion, Non-Tender, Normal Capillary Refill, No Pedal Edema Neurological: Alert, Oriented Psychiatric: Normal Affect, Normal Mood Skin Exam: Warm, Dry, Intact, Normal Color, No Rash Lymphatic: No Adenopathy Course - Vital Signs Last Recorded V/S: Last Vital Signs Temp 36.9 C 08/19/18 18:59 Pulse 83 08/19/18 18:59 Resp 20 08/19/18 18:59 BP 106/73 08/19/18 18:59 Pulse Ox 100 08/19/18 18:59 - Orders/Labs/Meds Orders: Active Orders 24 hr Category Date Time Status Abdomen Pelvis wo Cont [CT] Urgent Exams 08/19/18 19:28 Taken Labs: Laboratory Tests 08/19/18 08/19/18 08/19/18 Range/Units 19:15 19:20 19:53 WBC 10.0 (5.0-10.0) 10^3/uL RBC 4.54 (4.2-5.4) 10^6/uL Hgb 13.4 (12.0-16.0) g/dL Hct 40.3 (37.0-47.0) % MCV 88.8 (80-100) fL MCH 29.5 (27.0-34.0) pg MCHC 33.3 (33.0-35.0) g/dL Plt Count 326 (150-450) 10^3/uL Neut % (Auto) 62.6 (42.2-75.2) % Lymph % (Auto) 28.0 (20.5-50.1) % Clare % (Auto) 8.3 H (2-8) % Eos % (Auto) 0.8 L (1.0-3.0) % Baso % (Auto) 0.3 (0.0-1.0) % Sodium (135-145) mmol/L Potassium (3.6-5.0) mmol/L Chloride (101-111) mmol/L Carbon Dioxide (21.0-31.0) mmol/L Anion Gap BUN (7-18) mg/dL Creatinine (0.6-1.3) mg/dL Est Cr Clr Drug Dosing mL/min Estimated GFR (MDRD) BUN/Creatinine Ratio Glucose (74-105) mg/dL Calcium (8.4-10.2) mg/dl Total Bilirubin (0.2-1.0) mg/dL AST (10-42) IU/L ALT (10-60) IU/L Alkaline Phosphatase (42-121) IU/L Total Protein (6.7-8.2) g/dl Albumin (3.2-5.5) g/dl Globulin Albumin/Globulin Ratio Urine Color Yellow (YELLOW) Urine Appearance Slightly cloudy (CLEAR) Urine pH 7.0 (5.0-9.0) Ur Specific [place] 1.020 (1.005-1.030) Urine Protein Negative (NEGATIVE) Urine Glucose (UA) Negative (NEGATIVE) Urine Ketones Trace H (NEGATIVE) Urine Occult Blood Trace-intact H (NEGATIVE) Urine Nitrite Negative (NEGATIVE) Urine Bilirubin Negative (NEGATIVE) Urine Urobilinogen 0.2 (0.2-1.0) mg/dL Ur Leukocyte Esterase Negative (NEGATIVE) Urine RBC 10-20 H /HPF Urine WBC 0-5 (0-5/HPF) /HPF Ur Epithelial Cells Moderate H /HPF Amorphous Sediment Moderate H (0/HPF) /HPF Urine Bacteria Moderate H (0-FEW/HPF) /HPF Urine Mucus Moderate H /LPF Urine Opiates Screen Negative (NEGATIVE) Ur Oxycodone Screen Negative (NEGATIVE) Urine Methadone Screen Negative (NEGATIVE) Ur Barbiturates Screen Negative (NEGATIVE) U Tricyclic Antidepress Negative (NEGATIVE) Ur Phencyclidine Scrn Negative (NEGATIVE) Ur Amphetamine Screen Negative (NEGATIVE) U Methamphetamines Scrn Positive H (NEGATIVE) Urine MDMA Screen Negative (NEGATIVE) U Benzodiazepines Scrn Negative (NEGATIVE) Urine Cocaine Screen Negative (NEGATIVE) U Marijuana (THC) Screen Positive H (NEGATIVE) 08/19/18 Range/Units 19:53 WBC (5.0-10.0) 10^3/uL RBC (4.2-5.4) 10^6/uL Hgb (12.0-16.0) g/dL Hct (37.0-47.0) % MCV (80-100) fL MCH (27.0-34.0) pg MCHC (33.0-35.0) g/dL Plt Count (150-450) 10^3/uL Neut % (Auto) (42.2-75.2) % Lymph % (Auto) (20.5-50.1) % Clare % (Auto) (2-8) % Eos % (Auto) (1.0-3.0) % Baso % (Auto) (0.0-1.0) % Sodium 139 (135-145) mmol/L Potassium 3.8 (3.6-5.0) mmol/L Chloride 106 (101-111) mmol/L Carbon Dioxide 20.0 L (21.0-31.0) mmol/L Anion Gap 16.8 BUN 12 (7-18) mg/dL Creatinine 0.6 (0.6-1.3) mg/dL Est Cr Clr Drug Dosing 106.74 mL/min Estimated GFR (MDRD) > 60 BUN/Creatinine Ratio 20.00 Glucose 82 (74-105) mg/dL Calcium 9.3 (8.4-10.2) mg/dl Total Bilirubin 0.5 (0.2-1.0) mg/dL AST 27 (10-42) IU/L ALT 28 (10-60) IU/L Alkaline Phosphatase 62 (42-121) IU/L Total Protein 7.5 (6.7-8.2) g/dl Albumin 4.3 (3.2-5.5) g/dl Globulin 3.2 Albumin/Globulin Ratio 1.34 Urine Color (YELLOW) Urine Appearance (CLEAR) Urine pH (5.0-9.0) Ur Specific [place] (1.005-1.030) Urine Protein (NEGATIVE) Urine Glucose (UA) (NEGATIVE) Urine Ketones (NEGATIVE) Urine Occult Blood (NEGATIVE) Urine Nitrite (NEGATIVE) Urine Bilirubin (NEGATIVE) Urine Urobilinogen (0.2-1.0) mg/dL Ur Leukocyte Esterase (NEGATIVE) Urine RBC /HPF Urine WBC (0-5/HPF) /HPF Ur Epithelial Cells /HPF Amorphous Sediment (0/HPF) /HPF Urine Bacteria (0-FEW/HPF) /HPF Urine Mucus /LPF Urine Opiates Screen (NEGATIVE) Ur Oxycodone Screen (NEGATIVE) Urine Methadone Screen (NEGATIVE) Ur Barbiturates Screen (NEGATIVE) U Tricyclic Antidepress (NEGATIVE) Ur Phencyclidine Scrn (NEGATIVE) Ur Amphetamine Screen (NEGATIVE) U Methamphetamines Scrn (NEGATIVE) Urine MDMA Screen (NEGATIVE) U Benzodiazepines Scrn (NEGATIVE) Urine Cocaine Screen (NEGATIVE) U Marijuana (THC) Screen (NEGATIVE) Meds: Medications Discontinued Medications Generic Name Dose Route Start Last Admin Trade Name Addy PRN Reason Stop Dose Admin Sodium Chloride 1,000 mls @ 999 mls/hr 08/19/18 19:27 08/19/18 19:33 Normal Saline IV 08/19/18 20:27 999 mls/hr .BOLUS ONE Administration Nitrofurantoin Macrocrystals 100 mg 08/19/18 20:47 Macrobid PO 08/19/18 20:48 ONETIME ONE Departure - Departure Time of Disposition: 20:51 Disposition: Home, Self-Care 01 Condition: Fair Clinical Impression: UTI (urinary tract infection) Qualifiers: Urinary tract infection type: site unspecified Hematuria presence: with hematuria Qualified Code(s): N39.0 - Urinary tract infection, site not specified ; R31.9 - Hematuria, unspecified - Discharge Information *PRESCRIPTION DRUG MONITORING PROGRAM REVIEWED*: Not Applicable *COPY OF PRESCRIPTION DRUG MONITORING REPORT IN PATIENT KENIA: Not Applicable Instructions: Urinary Tract Infection, Adult, [id number] Forms: ED Department Discharge Care Plan Goals: The patient was advised of the examination, lab and CT results during the visit. The patient was given a dose of Macrobid while in the ED. The patient was discharged with a script for Macrobid (100 mg) to take 1 by mouth 2 times per day for 7 days. The patient was encouraged to increase her oral fluid intake. If the patient has any additional symptoms or concerns, the patient should either return to the emergency department or visit her primary care facility. - My Orders Last 24 Hours: My Active Orders 08/19/18 19:28 Abdomen Pelvis wo Cont [CT] Urgent - Assessment/Plan Last 24 Hours: My Active Orders 08/19/18 19:28 Abdomen Pelvis wo Cont [CT] Urgent
[2018-08-19 20:18] LABS: ANION GAP 16.8; CHLORIDE,CL 106 mmol/L (101-111); SODIUM,NA 139 mmol/L (135-145)
[2018-08-19] MEDS ORDERED: Nitrofurantoin Monohydrate/Macrocrystalline 100 MG Cap PO ONE (20:47)
== END 2018-08-19 21:15 | disposition home or self-care (01) ==
LOC: DL.ED 18:29
DX: N39.0 Urinary tract infection, site not specified (principal); F17.210 Nicotine dependence, cigarettes, uncomplicated; Z88.1 Allergy status to other antibiotic agents; Z88.8 Allergy status to other drugs, medicaments and biological substances
CPT/HCPCS: 36415; 74176; 80053; 80305; 81001; 85025; 96360; 99284; A9270; J7030

== ENCOUNTER 2019-07-26 23:57 | Emergency (ER) | payer OTHER ==
[2019-07-27 00:23] VITALS: BP 103/51; PULSE 74
--- NOTE | 2019-07-27 00:40 | EDM.PDOC ---
ED HPI GENERAL MEDICAL PROBLEM - General Chief Complaint: Flank Pain Stated Complaint: SHARP PAIN IN FRONT ABDOMIN AND BACK Time Seen by Provider: 07/27/19 00:28 Source of Information: Reports: Patient, Family, RN History Limitations: Reports: No Limitations - History of Present Illness INITIAL COMMENTS - FREE TEXT/NARRATIVE: ED with c/o sharp stabbing burning pain to right lower abdomen with onset tonight. No nausea or vomiting. Took 2 tylenol that brother gave her,Ongoing difficulty with urination, states from PTSD. Right Flank Pain Score (Numeric/FACES): 9 - Related Data Allergies Allergy/AdvReac Type Severity Reaction Status Date / Time ceftriaxone [From Rocephin] Allergy Hives Verified 08/19/18 18:55 cefuroxime [From Ceftin] Allergy Hives Verified 08/19/18 18:55 celecoxib [From Celebrex] Allergy Hives Verified 08/19/18 18:55 doxycycline Allergy Airway Verified 08/19/18 18:55 Tightness erythromycin base Allergy Hives Verified 08/19/18 18:55 [Erythromycin Base] ibuprofen Allergy Swelling Verified 08/19/18 18:55 naproxen Allergy Airway Verified 08/19/18 18:55 Tightness sulfamethoxazole Allergy Hives Verified 08/19/18 18:55 [From Bactrim] tramadol Allergy Rash Verified 08/19/18 18:55 trimethoprim [From Bactrim] Allergy Hives Verified 08/19/18 18:55 Home Meds: Home Meds . 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 Psychiatric History: Reports: None Endocrine/Metabolic History: Reports: Other (See Below) Other Endocrine/Metabolic History: "insulin resistant" Hematologic History: Reports: None Immunologic History: Reports: None Oncologic (Cancer) History: Reports: Ovarian Dermatologic History: Reports: None - Infectious Disease History Infectious Disease History: Reports: C-Difficile Other Infectious Disease History: lyme disease. - Past Surgical History Head Surgeries/Procedures: Reports: None GI Surgical History: Reports: Appendectomy, Cholecystectomy Musculoskeletal Surgical History: Reports: None Social & Family History - Family History Family Medical History: Noncontributory Cardiac: Reports: None Respiratory: Reports: None GI: Reports: None Immunologic: Reports: None Dermatologic: Reports: None Oncologic: Reports: None - Caffeine Use Caffeine Use: Reports: None Caffeine Use Comment: mother states no caffeine use. - Living Situation & Occupation Living situation: Reports: with Family, Single Occupation: Disabled ED ROS GENERAL - Review of Systems Review Of Systems: See Below Constitutional: Denies: Fever, Chills HEENT: Reports: No Symptoms Respiratory: Reports: No Symptoms Cardiovascular: Reports: No Symptoms GI/Abdominal: Reports: No Symptoms : Reports: Urinary Retention. Denies: Dysuria Musculoskeletal: Reports: No Symptoms Skin: Reports: No Symptoms Neurological: Reports: No Symptoms ED EXAM, GI/ABD - Physical Exam Exam: See Below Exam Limited By: No Limitations General Appearance: Alert, Mild Distress, Thin Eyes: Bilateral: EOMI Ears: Normal External Exam Nose: Normal Inspection Throat/Mouth: Normal Inspection Head: Atraumatic, Normocephalic Neck: Normal Inspection Respiratory/Chest: No Respiratory Distress, Lungs Clear, Normal Breath Sounds Cardiovascular: Normal Peripheral Pulses, Regular Rate, Rhythm GI/Abdominal Exam: Normal Bowel Sounds, Soft, Tender (general) Back Exam: Normal Inspection, Full Range of Motion. No: CVA Tenderness (L), CVA Tenderness (R) Extremities: Normal Inspection, Normal Range of Motion Neurological: Alert, Oriented, Normal Cognition Psychiatric: Anxious Skin Exam: Warm, Dry, Intact, Normal Color Course - Vital Signs Last Recorded V/S: Last Vital Signs Temp 98.3 F 07/27/19 00:19 Pulse 74 07/27/19 00:19 Resp 20 07/27/19 00:19 BP 103/51 L 07/27/19 00:19 Pulse Ox 100 07/27/19 00:19 - Orders/Labs/Meds Orders: Active Orders 24 hr Category Date Time Status Abdomen Pelvis wo Cont [CT] Urgent Exams 07/27/19 01:05 Taken Labs: Laboratory Tests 07/27/19 07/27/19 07/27/19 Range/Units 00:16 00:16 00:37 WBC 8.2 (5.0-10.0) 10^3/uL RBC 4.72 (4.2-5.4) 10^6/uL Hgb 14.3 (12.0-16.0) g/dL Hct 41.9 (37.0-47.0) % MCV 88.8 (80-100) fL MCH 30.3 (27.0-34.0) pg MCHC 34.1 (33.0-35.0) g/dL Plt Count 288 (150-450) 10^3/uL Neut % (Auto) 50.5 (42.2-75.2) % Lymph % (Auto) 37.4 (20.5-50.1) % [place] % (Auto) 10.4 H (2-8) % Eos % (Auto) 1.3 (1.0-3.0) % Baso % (Auto) 0.4 (0.0-1.0) % Sodium 142 (136-145) mmol/L Potassium 3.4 L (3.5-5.1) mmol/L Chloride 104 (98-107) mmol/L Carbon Dioxide 31 (21-32) mmol/L Anion Gap 10.4 (7-13) mEq/L BUN 16 (7-18) mg/dL Creatinine 0.72 (0.55-1.02) mg/dL Est Cr Clr Drug Dosing 88.50 mL/min Estimated GFR (MDRD) > 60 BUN/Creatinine Ratio 22.2 (No establ ref range) Glucose 81 (74-99) mg/dL Calcium 8.7 (8.5-10.1) mg/dL Total Bilirubin 0.4 (0.2-1.0) mg/dL AST 15 (15-37) U/L ALT 22 (14-59) U/L Alkaline Phosphatase 72 (46-116) U/L Total Protein 7.6 (6.4-8.2) g/dL Albumin 4.1 (3.4-5.0) g/dL Globulin 3.5 Albumin/Globulin Ratio 1.2 Amylase 46 (25-115) U/L Lipase 88 (73-393) U/L Urine Color Yellow (YELLOW) Urine Appearance Clear (CLEAR) Urine pH 6.0 (5.0-9.0) Ur Specific [place] >= 1.030 (1.005-1.030) Urine Protein Negative (NEGATIVE) Urine Glucose (UA) Negative (NEGATIVE) Urine Ketones Trace H (NEGATIVE) Urine Occult Blood Negative (NEGATIVE) Urine Nitrite Negative (NEGATIVE) Urine Bilirubin Negative (NEGATIVE) Urine Urobilinogen 0.2 (0.2-1.0) mg/dL Ur Leukocyte Esterase Negative (NEGATIVE) Urine Opiates Screen (NEGATIVE) Ur Oxycodone Screen (NEGATIVE) Urine Methadone Screen (NEGATIVE) Ur Barbiturates Screen (NEGATIVE) U Tricyclic Antidepress (NEGATIVE) Ur Phencyclidine Scrn (NEGATIVE) Ur Amphetamine Screen (NEGATIVE) U Methamphetamines Scrn (NEGATIVE) Urine MDMA Screen (NEGATIVE) U Benzodiazepines Scrn (NEGATIVE) Urine Cocaine Screen (NEGATIVE) U Marijuana (THC) Screen (NEGATIVE) 07/27/19 Range/Units 00:37 WBC (5.0-10.0) 10^3/uL RBC (4.2-5.4) 10^6/uL Hgb (12.0-16.0) g/dL Hct (37.0-47.0) % MCV (80-100) fL MCH (27.0-34.0) pg MCHC (33.0-35.0) g/dL Plt Count (150-450) 10^3/uL Neut % (Auto) (42.2-75.2) % Lymph % (Auto) (20.5-50.1) % [place] % (Auto) (2-8) % Eos % (Auto) (1.0-3.0) % Baso % (Auto) (0.0-1.0) % Sodium (136-145) mmol/L Potassium (3.5-5.1) mmol/L Chloride (98-107) mmol/L Carbon Dioxide (21-32) mmol/L Anion Gap (7-13) mEq/L BUN (7-18) mg/dL Creatinine (0.55-1.02) mg/dL Est Cr Clr Drug Dosing mL/min Estimated GFR (MDRD) BUN/Creatinine Ratio (No establ ref range) Glucose (74-99) mg/dL Calcium (8.5-10.1) mg/dL Total Bilirubin (0.2-1.0) mg/dL AST (15-37) U/L ALT (14-59) U/L Alkaline Phosphatase (46-116) U/L Total Protein (6.4-8.2) g/dL Albumin (3.4-5.0) g/dL Globulin Albumin/Globulin Ratio Amylase (25-115) U/L Lipase (73-393) U/L Urine Color (YELLOW) Urine Appearance (CLEAR) Urine pH (5.0-9.0) Ur Specific [place] (1.005-1.030) Urine Protein (NEGATIVE) Urine Glucose (UA) (NEGATIVE) Urine Ketones (NEGATIVE) Urine Occult Blood (NEGATIVE) Urine Nitrite (NEGATIVE) Urine Bilirubin (NEGATIVE) Urine Urobilinogen (0.2-1.0) mg/dL Ur Leukocyte Esterase (NEGATIVE) Urine Opiates Screen Negative (NEGATIVE) Ur Oxycodone Screen Positive H (NEGATIVE) Urine Methadone Screen Negative (NEGATIVE) Ur Barbiturates Screen Negative (NEGATIVE) U Tricyclic Antidepress Negative (NEGATIVE) Ur Phencyclidine Scrn Negative (NEGATIVE) Ur Amphetamine Screen Positive H (NEGATIVE) U Methamphetamines Scrn Positive H (NEGATIVE) Urine MDMA Screen Negative (NEGATIVE) U Benzodiazepines Scrn Negative (NEGATIVE) Urine Cocaine Screen Negative (NEGATIVE) U Marijuana (THC) Screen Positive H (NEGATIVE) Meds: Medications Discontinued Medications Generic Name Dose Route Start Last Admin Trade Name Freq PRN Reason Stop Dose Admin Famotidine 20 mg 07/27/19 00:41 07/27/19 00:48 Pepcid IVPUSH 07/27/19 00:42 20 mg ONETIME ONE Administration Hydromorphone HCl 1 mg 07/27/19 00:44 07/27/19 00:55 Dilaudid IVPUSH 07/27/19 00:45 1 mg ONETIME ONE Administration Sodium Chloride 1,000 mls @ 999 mls/hr 07/27/19 00:41 07/27/19 00:50 Normal Saline IV 07/27/19 01:41 999 mls/hr .BOLUS ONE Administration Ondansetron HCl 4 mg 07/27/19 00:44 07/27/19 00:54 Zofran IVPUSH 07/27/19 00:45 4 mg ONETIME ONE Administration Phenazopyridine HCl 190 mg 07/27/19 01:57 07/27/19 02:01 Urinary Pain Relief PO 07/27/19 01:58 190 mg ONETIME ONE Administration - Radiology Interpretation Free Text/Narrative:: [facility] [place] [facility] Final Radiology Report Call: [phone] assistance Online chat: [email or web address] Name: PAULY MORALES Age: 39Years F Date: 07/27/2019 SSN: -- : [id number] Study: CT ABDOMEN/PELVIS WO Requesting Physician: RIAN SWAN Images: [phone] Addl Studies: Provided Clinical History: Contrast: Without Contrast Medium: Contrast Amount: Contrast Method: Page 1 of 2 PROCEDURE INFORMATION: Exam: CT Abdomen And Pelvis Without Contrast Exam date and time: 07/27/2019 1:23 AM Age: 39 years old Clinical indication: Other: RT flank pain--hx renal stones TECHNIQUE: Imaging protocol: Computed tomography of the abdomen and pelvis without contrast. Radiation optimization: All CT scans at this facility use at least one of these dose optimization techniques: automated exposure control; mA and/or kV adjustment per patient size (includes targeted exams where dose is matched to clinical indication); or iterative reconstruction. COMPARISON: CT Abdomen Pelvis w wo Cont 04/29/2019 8:17 AM FINDINGS: Lungs: There are no suspicious pulmonary nodules or areas of lung consolidation. Liver: The liver is normal in architecture, without suspicious abnormality. Gallbladder and bile ducts: The gallbladder is surgically absent. Pancreas: The pancreatic parenchyma is normal in bulk and sharply marginated. Duct is not dilated. No calcifications, masses, or abnormal fluid collections. Spleen: Spleen is normal in size. No mass or fluid collection. Adrenals: There are no adrenal masses. Kidneys and ureters: Normal in parenchymal bulk. No hydronephrosis or asymmetric perinephric stranding. No solid masses. No stones. Stomach and bowel: No significant abnormalities of the stomach. There are no dilated or thickened small bowel loops. Gas and stool of appropriate quantities are seen in the colon. No mass. Appendix: Linear high density line along base of the cecum is presumed to be a suture line. The appendix is not seen. There is no evidence for appendicitis. Intraperitoneal space: Unremarkable. No free air. No significant fluid collection. PAULY MORALES | Final Radiology Report CONFIDENTIALITY STATEMENT This report is intended only for use by the referring physician, and only in accordance with law. If you received this in error, call [phone]. Page 2 of 2 Vasculature: Unremarkable. No abdominal aortic aneurysm. Lymph nodes: There are no enlarged celiac, mesenteric, periportal, extraperitoneal or inguinal lymph nodes. Bladder: There is no bladder wall thickening, mass, or calculus. Reproductive: Unremarkable as visualized. Bones/joints: There is L5 spondylolysis.There are no suspicious lytic or osteosclerotic lesions. There are no vertebral compression fractures. Soft tissues: Unremarkable. IMPRESSION: No acute findings. No significant change. Thank you for allowing us to participate in the care of your patient. Dictated and Authenticated by: Sergio Young MD 07/27/2019 1:50 AM Central Time ([place] & [place]) - Re-Assessments/Exams Free Text/Narrative Re-Assessment/Exam: Lab results including positive urine drug screen discussed with patient. Patient admits to Cannibis. Denies use of other substance of meth or oxy that were positive on drug screen. Patient less dramatic following discussion. Ct results reviewed with patient and mother as nothing acute identified. Departure - Departure Time of Disposition: 02:03 Disposition: Home, Self-Care 01 Condition: Good Clinical Impression: Positive urine drug screen Abdominal pain Qualifiers: Abdominal location: right lower quadrant Qualified Code(s): R10.31 - Right lower quadrant pain - Discharge Information *PRESCRIPTION DRUG MONITORING PROGRAM REVIEWED*: No *COPY OF PRESCRIPTION DRUG MONITORING REPORT IN PATIENT KENIA: No Instructions: Abdominal Pain, Adult, [id number] Forms: ED Department Discharge Additional Instructions: pyridium 190mg one every 8 hours as needed for bladder spasm follow up with urology increase frequency of urinating increase fluid intake low acid diet Sepsis Event Note - Evaluation Sepsis Screening Result: No Definite Risk - Focused Exam Vital Signs: Vital Signs Temp Pulse Resp BP Pulse Ox 07/27/19 00:19 98.3 F 74 20 103/51 L 100 Date Exam was Performed: 07/27/19 Time Exam was Performed: 06:14 - My Orders Last 24 Hours: My Active Orders 07/27/19 01:05 Abdomen Pelvis wo Cont [CT] Urgent - Assessment/Plan Last 24 Hours: My Active Orders 07/27/19 01:05 Abdomen Pelvis wo Cont [CT] Urgent
[2019-07-27 00:42] LABS: ANION GAP 10.4 mEq/L (7-13); CHLORIDE,CL 104 mmol/L (98-107); SODIUM,NA 142 mmol/L (136-145)
[2019-07-27] MEDS: Famotidine 20 MG/2 ML SDV IVPUSH ONE (00:48)
[2019-07-27] MEDS: Sodium Chloride 0.9% 1,000 ML IV ONE (00:50)
[2019-07-27] MEDS: Ondansetron 4 MG/2 ML SDV IVPUSH ONE (00:54)
[2019-07-27] MEDS: HYDROmorphone 1 MG/ML Syringe IVPUSH ONE (00:55)
[2019-07-27] MEDS: Phenazopyridine 95 MG Tab PO ONE (02:01)
== END 2019-07-27 02:13 | disposition home or self-care (01) ==
LOC: DL.ED 23:57
DX: R10.31 Right lower quadrant pain (principal); R82.5 Elevated urine levels of drugs, medicaments and biological substances; Z86.73 Personal history of transient ischemic attack (TIA), and cerebral infarction without residual deficits; Z88.8 Allergy status to other drugs, medicaments and biological substances; Z88.2 Allergy status to sulfonamides; Z88.1 Allergy status to other antibiotic agents
CPT/HCPCS: 36415; 74176; 80053; 80305; 81003; 82150; 83690; 85025; 96361; 96374; 96375; 99284; A9270; J1170; J2405; J3490; J7030

== ENCOUNTER 2019-11-29 19:24 | Emergency (ER) | payer MEDICAID, OTHER ==
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
[2019-11-29] MEDS ORDERED: Morphine 2 MG/ML SYRINGE IVPUSH ONE (19:49)
[2019-11-29] MEDS ORDERED: Ondansetron 4 MG/2 ML SDV IVPUSH ONE (19:49)
[2019-11-29] MEDS ORDERED: Iopamidol 612 MG/ML 100 ML Bottle IVPUSH ONE (19:58)
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
[2019-11-29] MEDS ORDERED: HYDROmorphone 1 MG/ML Syringe IVPUSH ONE (20:08)
[2019-11-29 20:18] LABS: ANION GAP 19.4 mEq/L (7-13); CHLORIDE,CL 102 mmol/L (98-107); SODIUM,NA 141 mmol/L (136-145)
[2019-11-29 20:22] LABS: PTT,PARTIAL THROMBOPLSTIN TIME 23.5 SEC (22.0-34.0)
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
== END 2019-11-29 21:34 ==
LOC: DL.ED 19:24
DX: S27.0XXA Traumatic pneumothorax, initial encounter (principal); S42.022A Displaced fracture of shaft of left clavicle, initial encounter for closed fracture; Z88.1 Allergy status to other antibiotic agents; Z88.6 Allergy status to analgesic agent; Z88.2 Allergy status to sulfonamides; Z88.5 Allergy status to narcotic agent; Z88.8 Allergy status to other drugs, medicaments and biological substances
CPT/HCPCS: 36415; 70450; 71045; 71260; 72125; 73562; 73610; 74177; 80053; 80307; 85025; 85610; 85730; 96374; 96375; 99285; J1170; J2270; J2405; Q9967; 99284

== ENCOUNTER 2019-12-03 04:46 | Emergency (ER) | payer MEDICAID ==
[2019-12-03 05:07] VITALS: BP 133/89; PULSE 129
[2019-12-03] MEDS: Acetaminophen/oxyCODONE 325-5 MG Tab PO ONE (05:24)
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
== END 2019-12-03 06:22 | disposition home or self-care (01) ==
LOC: DL.ED 04:46
DX: S42.002K Fracture of unspecified part of left clavicle, subsequent encounter for fracture with nonunion (principal); T79.7XXD Traumatic subcutaneous emphysema, subsequent encounter; J93.9 Pneumothorax, unspecified; F17.210 Nicotine dependence, cigarettes, uncomplicated; Z88.1 Allergy status to other antibiotic agents; Z88.2 Allergy status to sulfonamides; Z88.8 Allergy status to other drugs, medicaments and biological substances; Z88.6 Allergy status to analgesic agent; V28.9XXD Unspecified motorcycle rider injured in noncollision transport accident in traffic accident, subsequent encounter
CPT/HCPCS: 71045; 99283; A9270

== ENCOUNTER 2020-01-03 20:39 | Emergency (ER) | payer MEDICAID, OTHER ==
[2020-01-03] MEDS ORDERED: Acetaminophen/oxyCODONE 325-5 MG Tab PO ONE ×2 (20:40→20:44)
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
[2020-01-03 20:58] VITALS: BP 120/55; PULSE 79
--- NOTE | 2020-01-03 21:42 | CT ---
PROCEDURE INFORMATION: Exam: CT Left Upper Extremity Without Contrast, Shoulder Exam date and time: 01/03/2020 8:57 PM Age: 39 years old Clinical indication: Other: Left clavicle pain; Additional info: Worsening of collar bone fracture TECHNIQUE: Imaging protocol: CT of the Left upper extremity without contrast was performed. Exam focused on the shoulder. Radiation optimization: All CT scans at this facility use at least one of these dose optimization techniques: automated exposure control; mA and/or kV adjustment per patient size (includes targeted exams where dose is matched to clinical indication); or iterative reconstruction. COMPARISON: No relevant prior studies available. FINDINGS: Bones/joints: Comminuted, minimally displaced fracture of the head of the left clavicle. Minimal callus formation at the fracture site. The appearance of the fracture is similar to the prior study. Nondisplaced , comminuted fracture of the superior border of the left scapula extending into the base of the scapular spine and the upper scapular body. Soft tissues: Normal. IMPRESSION: Fractures of the left clavicle and scapula are similar in appearance to 11/29/2019, with minimal callus formation. No superimposed acute abnormality.
[2020-01-03] MEDS ORDERED: Acetaminophen/oxyCODONE 325-5 MG Tab ONE (21:53)
== END 2020-01-03 21:57 | disposition home or self-care (01) ==
LOC: DL.ED 20:39
DX: S42.022K Displaced fracture of shaft of left clavicle, subsequent encounter for fracture with nonunion (principal); Z88.1 Allergy status to other antibiotic agents; Z88.2 Allergy status to sulfonamides; Z88.5 Allergy status to narcotic agent; X58.XXXD Exposure to other specified factors, subsequent encounter
CPT/HCPCS: 73200; 99283; A9270

== ENCOUNTER 2020-12-14 20:05 | Emergency (ER) | payer MEDICAID ==
[2020-12-14] MEDS ORDERED: Aspirin 81 MG Tab.Chew PO ONE (20:31)
--- NOTE | 2020-12-14 20:31 | EDM.PDOC ---
ED HPI GENERAL MEDICAL PROBLEM - General Chief Complaint: Chest Pain Stated Complaint: AMBULANCE Time Seen by Provider: 12/14/20 20:28 Source of Information: Reports: Patient, EMS, Old Records, RN, RN Notes Reviewed History Limitations: Reports: No Limitations - History of Present Illness INITIAL COMMENTS - FREE TEXT/NARRATIVE: Jo is a 40 y/o with a history of CVA who presents to the ED via [facility] with complaints of chest pain. The patient reports her pain began abruptly 30 minutes ago and has maintained in severity over that time. She characterizes the pain as a crushing pain to her midline chest that radiates into her left arm. Additionally, she notes shortness of breath and nausea. She has taken no medications for this pain; she is not currently taking any prescription medications. She denies recent illness, fever, shaking chills, palpitations, vomiting, or abdominal pain. She attests to smoking 1/4 pack of cigarettes per day and smokes marijuana often; her last use was two weeks ago. Mid-Sternal Chest Pain Score (Numeric/FACES): 9 - Related Data Allergies Allergy/AdvReac Type Severity Reaction Status Date / Time ceftriaxone [From Rocephin] Allergy Hives Verified 12/14/20 20:30 cefuroxime [From Ceftin] Allergy Hives Verified 12/14/20 20:30 celecoxib [From Celebrex] Allergy Hives Verified 12/14/20 20:30 doxycycline Allergy Airway Verified 12/14/20 20:30 Tightness erythromycin base Allergy Hives Verified 12/14/20 20:30 [Erythromycin Base] ibuprofen Allergy Swelling Verified 12/14/20 20:30 naproxen Allergy Airway Verified 12/14/20 20:30 Tightness sulfamethoxazole Allergy Hives Verified 12/14/20 20:30 [From Bactrim] tramadol Allergy Rash Verified 12/14/20 20:30 trimethoprim [From Bactrim] Allergy Hives Verified 12/14/20 20:30 Home Meds: Home Meds . [No Known Home Meds] 08/18/18 [History] Past Medical History - Past Health History Medical/Surgical History: Denies Medical/Surgical History HEENT History: Reports: Impaired Vision Other HEENT History: wears corrective lenses Cardiovascular History: Reports: Other (See Below) Other Cardiovascular History: "heart stopped during surgery" Respiratory History: Reports: Pneumothorax Gastrointestinal History: Reports: Cholelithiasis, Chronic Constipation Other Gastrointestinal History: diarrhea since 3 am Genitourinary History: Reports: Other (See Below) Other Genitourinary History: endometrosis, PCOS [facility] [place] History: Reports: Endometriosis, Polycystic Ovaries Other [facility] [place] History: endometriosis, PCOS Musculoskeletal History: Reports: Other (See Below) Other Musculoskeletal History: fx lt clavicle Neurological History: Reports: Migraines Other Neuro History: 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 Psychiatric History: Reports: None Endocrine/Metabolic History: Reports: Other (See Below) Other Endocrine/Metabolic History: "insulin resistant" Hematologic History: Reports: None Immunologic History: Reports: None Oncologic (Cancer) History: Reports: Ovarian Dermatologic History: Reports: None - Infectious Disease History Infectious Disease History: Reports: C-Difficile Other Infectious Disease History: lyme disease. - Past Surgical History Head Surgeries/Procedures: Reports: None GI Surgical History: Reports: Appendectomy, Cholecystectomy Female Surgical History: Reports: Hysterectomy Musculoskeletal Surgical History: Reports: None Social & Family History - Family History Family Medical History: No Pertinent Family History Cardiac: Reports: None Respiratory: Reports: None GI: Reports: None Immunologic: Reports: None Dermatologic: Reports: None Oncologic: Reports: None - Caffeine Use Caffeine Use: Reports: Soda Caffeine Use Comment: mother states no caffeine use. - Living Situation & Occupation Living situation: Reports: with Family, Single Occupation: Disabled ED ROS GENERAL - Review of Systems Review Of Systems: Comprehensive ROS is negative, except as noted in HPI. ED EXAM, GENERAL - Physical Exam Exam: See Below Exam Limited By: No Limitations General Appearance: Alert, No Apparent Distress, Thin Eye Exam: Bilateral Eye: EOMI, Normal Inspection, PERRL (3mm) Ears: Normal External Exam, Hearing Grossly Normal Nose: Normal Inspection, Normal Mucosa, No Blood Throat/Mouth: Normal Inspection, Normal Oropharynx, Normal Voice, No Airway Compromise, Perioral Cyanosis Head: Atraumatic Neck: Normal Inspection, Supple, Non-Tender, Full Range of Motion Respiratory/Chest: No Respiratory Distress, Lungs Clear, Normal Breath Sounds, No Accessory Muscle Use, Chest Non-Tender. No: Crackles, Rales, Rhonchi, Wheezing, Stridor Cardiovascular: Normal Peripheral Pulses, Regular Rate, Rhythm, No Edema, No Gallop, No JVD, No Murmur, No Rub Peripheral Pulses: 2+: Radial (L), Radial (R) GI/Abdominal: Normal Bowel Sounds, Soft, Non-Tender, No Distention, No Abnormal Bruit, No Mass, Pelvis Stable (Female) Exam: Deferred Rectal (Female) Exam: Deferred Back Exam: Normal Inspection, Full Range of Motion Extremities: Normal Range of Motion, Non-Tender, No Pedal Edema, Normal Capillary Refill, Arm Pain (Left arm tenderness). No: Increased Warmth, Mottled, Pallor, Redness Neurological: Alert, Oriented, CN II-XII Intact, Normal Cognition, No Motor/Sensory Deficits Psychiatric: Normal Affect, Normal Mood Skin Exam: Warm, Dry, Intact, Normal Color, No Rash. No: Cyanosis, Ecchymosis, Erythema, Jaundice, Mottled, Pallor, Petechiae #1 Interpretation EKG Date: 12/14/20 Time: 20:27 Rhythm: NSR Rate (Beats/Min): 66 [place]: LAD-Left [place] Deviation P-Wave: Present QRS: Normal ST-T: Elevated (Mild elevation in II, III, aVF, and V5-V6) QT: Normal AK/PQ Interval: 0.146 Comparison: Change From Previous EKG (05-22-17) EKG Interpretation Comments: NSR; Reads as active MS given mild elevation in II, III, and aVF #2 Interpretation EKG Date: 12/15/20 Time: 00:19 Rhythm: Other (Sinus Bradycardia) Rate (Beats/Min): 55 [place]: Normal P-Wave: Present QRS: Normal ST-T: Elevated (Mild elevation in II, III, and aVF) QT: Normal AK/PQ Interval: 0.14 Comparison: Change From Previous EKG EKG Interpretation Comments: Sinus bradycardia; Mild ST elevation unchanged from earlier EKG Course - Vital Signs Last Recorded V/S: Last Vital Signs Temp 97.8 F 12/15/20 00:40 Pulse 60 12/15/20 00:40 Resp 16 12/15/20 00:40 BP 115/58 L 12/15/20 00:40 Pulse Ox 98 12/15/20 00:40 - Orders/Labs/Meds Orders: Active Orders 24 hr Category Date Time Status DRUG SCREEN URINE BIORAD [URCHEM] Urgent Lab 12/14/20 20:26 Ordered UA RFX ADARSH AND CULT IF INDIC [URIN] Stat Lab 12/14/20 20:27 Ordered Heparin Sodium/0.45% NaCl [Heparin 25,000 Units in 1/2 Med 12/14/20 20:45 Active NS 500 ML] 25,000 units in 500 ml IV TITRATE Medication Orders Heparin Sodium/Sodium Chloride (Heparin 25,000 Units In 1/2 Ns 500 Ml) 25,000 units in 500 mls @ 12.389 mls/hr IV TITRATE AAKASH; Protocol Last Admin: 12/14/20 20:50 Dose: 12 units/kg/hr, 12.389 mls/hr Documented by: BRIDGER Cosigned by: PAMELA Labs: Laboratory Tests 12/14/20 12/14/20 12/14/20 Range/Units 20:36 20:36 20:36 WBC 8.8 (5.0-10.0) 10^3/uL RBC 4.63 (4.2-5.4) 10^6/uL Hgb 13.6 (12.0-16.0) g/dL Hct 40.8 (37.0-47.0) % MCV 88.1 (80-100) fL MCH 29.4 (27.0-34.0) pg MCHC 33.3 (33.0-35.0) g/dL Plt Count 281 (150-450) 10^3/uL Neut % (Auto) 71.0 (42.2-75.2) % Lymph % (Auto) 19.6 L (20.5-50.1) % Coles % (Auto) 8.8 H (2-8) % Eos % (Auto) 0.3 L (1.0-3.0) % Baso % (Auto) 0.3 (0.0-1.0) % PT 10.3 (9.0-12.0) SEC INR 1.0 (0.9-1.2) APTT 27.6 (22.0-34.0) SEC Sodium 139 (136-145) mmol/L Potassium 3.7 (3.5-5.1) mmol/L Chloride 103 (98-107) mmol/L Carbon Dioxide 28 (21-32) mmol/L Anion Gap 11.7 (7-13) mEq/L BUN 14 (7-18) mg/dL Creatinine 0.58 (0.55-1.02) mg/dL Est Cr Clr Drug Dosing 107.17 mL/min Estimated GFR (MDRD) > 60 BUN/Creatinine Ratio 24.1 (No establ ref range) Glucose 99 (70-99) mg/dL POC Glucose (70-99) mg/dL Lactic Acid (0.4-2.0) mmol/L Calcium 8.4 L (8.5-10.1) mg/dL Magnesium 2.1 (1.8-2.4) mg/dL Total Bilirubin 0.3 (0.2-1.0) mg/dL AST 21 (15-37) U/L ALT 30 (14-59) U/L Alkaline Phosphatase 88 (46-116) U/L Troponin I High Sens 4 (<=51) pg/mL C-Reactive Protein < 0.2 (0.0-0.9) mg/dL B-Natriuretic Peptide 7 (0-100) pg/ml Total Protein 6.8 (6.4-8.2) g/dL Albumin 3.5 (3.4-5.0) g/dL Globulin 3.3 Albumin/Globulin Ratio 1.1 Amylase 51 (25-115) U/L Lipase 104 (73-393) U/L Ethyl Alcohol < 3 (0) mg/dL 12/14/20 12/14/20 12/15/20 Range/Units 20:36 20:36 00:38 WBC (5.0-10.0) 10^3/uL RBC (4.2-5.4) 10^6/uL Hgb (12.0-16.0) g/dL Hct (37.0-47.0) % MCV (80-100) fL MCH (27.0-34.0) pg MCHC (33.0-35.0) g/dL Plt Count (150-450) 10^3/uL Neut % (Auto) (42.2-75.2) % Lymph % (Auto) (20.5-50.1) % Coles % (Auto) (2-8) % Eos % (Auto) (1.0-3.0) % Baso % (Auto) (0.0-1.0) % PT (9.0-12.0) SEC INR (0.9-1.2) APTT (22.0-34.0) SEC Sodium (136-145) mmol/L Potassium (3.5-5.1) mmol/L Chloride (98-107) mmol/L Carbon Dioxide (21-32) mmol/L Anion Gap (7-13) mEq/L BUN (7-18) mg/dL Creatinine (0.55-1.02) mg/dL Est Cr Clr Drug Dosing mL/min Estimated GFR (MDRD) BUN/Creatinine Ratio (No establ ref range) Glucose (70-99) mg/dL POC Glucose 103 H (70-99) mg/dL Lactic Acid 0.6 (0.4-2.0) mmol/L Calcium (8.5-10.1) mg/dL Magnesium (1.8-2.4) mg/dL Total Bilirubin (0.2-1.0) mg/dL AST (15-37) U/L ALT (14-59) U/L Alkaline Phosphatase (46-116) U/L Troponin I High Sens 5 (<=51) pg/mL C-Reactive Protein (0.0-0.9) mg/dL B-Natriuretic Peptide (0-100) pg/ml Total Protein (6.4-8.2) g/dL Albumin (3.4-5.0) g/dL Globulin Albumin/Globulin Ratio Amylase (25-115) U/L Lipase (73-393) U/L Ethyl Alcohol (0) mg/dL Meds: Medications Generic Name Dose Route Start Last Admin Trade Name Freq PRN Reason Stop Dose Admin Heparin Sodium/Sodium Chloride 25,000 units in 500 mls @ 12.389 mls/hr 12/14/20 20:45 12/14/20 20:50 Heparin 25,000 Units In 1/2 Ns 500 Ml IV 12 units/kg/hr TITRATE AAKASH 12.389 mls/hr Administration Protocol 12 UNITS/KG/HR Discontinued Medications Generic Name Dose Route Start Last Admin Trade Name Freq PRN Reason Stop Dose Admin Aspirin 324 mg 12/14/20 20:31 12/14/20 20:36 Aspirin 81 Mg Tab.Chew PO 12/14/20 20:32 324 mg ONETIME ONE Administration Heparin Sodium (Porcine) 4,000 units 12/14/20 20:40 12/14/20 20:50 Heparin Sodium 5,000 Units/Ml Vial IVPUSH 12/14/20 20:41 4,000 units .BOLUS ONE Administration Morphine Sulfate 2 mg 12/14/20 20:42 12/14/20 20:48 Morphine 2 Mg/Ml Syringe IVPUSH 12/14/20 20:43 2 mg ONETIME ONE Administration Morphine Sulfate 2 mg 12/14/20 21:36 12/14/20 21:53 Morphine 2 Mg/Ml Syringe IVPUSH 12/14/20 21:37 2 mg ONETIME ONE Administration - Radiology Interpretation Free Text/Narrative:: [facility] Final Radiology Report Call: [phone] assistance Online chat: [email or web address] Name: JO MORALES Age: 40Years F Date: 12/14/2020 SSN: -- : 1980 Study: CR CHEST 1V FRONTAL Requesting Physician: Abeba Alanis Images: 1 Addl Studies: Provided Clinical History: Chest pain Contrast: Contrast Medium: Contrast Amount: Contrast Method: CONFIDENTIALITY STATEMENT This report is intended only for use by the referring physician, and only in accordance with law. If you received this in error, call [phone]. Page 1 of 1 PROCEDURE INFORMATION: Exam: XR Chest Exam date and time: 12/14/2020 8:47 PM Age: 40 years old Clinical indication: Chest wall pain; Additional info: Chest pain TECHNIQUE: Imaging protocol: XR of the chest. Views: 1 view. COMPARISON: CR Chest 1V Frontal 12/03/2019 5:33 AM FINDINGS: Airway: Patent Lungs: Unremarkable. No consolidation. Pleural spaces: Unremarkable. No pleural effusion. No pneumothorax. Heart/Mediastinum: Unremarkable. No cardiomegaly. Bones/joints: Old/healed left clavicular fracture. No acute skeletal abnormality or aggressive osseous lesion. IMPRESSION: Negative for acute thoracic pathology. Thank you for allowing us to participate in the care of your patient. Dictated and Authenticated by: Riaz Yoder MD 12/14/2020 9:29 PM Central Time ([place] & [place]) - Re-Assessments/Exams Free Text/Narrative Re-Assessment/Exam: 12/14/[address] elevation in II, III, and aVF. ASA 324mg and Heparin gtt with bolus initiated. Case discussed with Dr. Mclaughlin, director retirement at [facility], following EKG. Dr. Mclaughlin states patient is not having an active MS. Troponin WNL; given onset of chest pain less than one hour prior, will trend over four hours. Findings of examination, lab work, imaging, and conversation with Dr. Mclaughlin reviewed with patient. Patient verbalized understanding and agreement with the plan of care. Repeat troponin WNL. Patient states her chest pain is completely resolved. Findings of repeat labs reviewed with patient. Patient instructed to follow up with PCP in 1-2 days or to return to the emergency department with return of symptoms. Red flag signs and symptoms which would warrant reevaluation reviewed. Patient verbalized understanding and agreement with the plan of care. Departure - Departure Time of Disposition: 01:35 Disposition: Home, Self-Care 01 Condition: Good Clinical Impression: Atypical chest pain Instructions: Nonspecific Chest Pain, Adult, [id number] Forms: ED Department Discharge Additional Instructions: 1.) Follow up with your primary care provider in 1-2 days regarding today's visit. 2.) Avoid use of NSAIDs or aspirin for pain relief over the next several days as you received blood thinners while in the emergency department, use acetaminophen (Tylenol) for general discomfort. 3.) Return to the emergency department with any return of symptoms. Sepsis Event Note (ED) - Focused Exam Vital Signs: Vital Signs Temp Pulse Resp BP BP Pulse Ox 12/15/20 00:40 97.8 F 60 16 115/58 L 98 12/14/20 22:03 97.0 F 63 16 130/64 99 12/14/20 20:42 100 12/14/20 20:28 98.0 F 70 16 120/75 99 - My Orders Last 24 Hours: My Active Orders 12/14/20 20:26 DRUG SCREEN URINE BIORAD [URCHEM] Urgent 12/14/20 20:27 UA RFX ADARSH AND CULT IF INDIC [URIN] Stat 12/14/20 20:45 Heparin Sodium/0.45% NaCl [Heparin 25,000 Units in 1/2 NS 500 ML] 25,000 units in 500 ml IV TITRATE - Assessment/Plan Last 24 Hours: My Active Orders 12/14/20 20:26 DRUG SCREEN URINE BIORAD [URCHEM] Urgent 12/14/20 20:27 UA RFX ADARSH AND CULT IF INDIC [URIN] Stat 12/14/20 20:45 Heparin Sodium/0.45% NaCl [Heparin 25,000 Units in 1/2 NS 500 ML] 25,000 units in 500 ml IV TITRATE
[2020-12-14] MEDS ORDERED: Heparin Sodium 5,000 Units/ML Vial IVPUSH ONE (20:40)
[2020-12-14] MEDS ORDERED: Morphine 2 MG/ML SYRINGE IVPUSH ONE ×2 (20:42→21:36)
[2020-12-14] MEDS ORDERED: Heparin Sodium/0.45% NaCl 25,000 UNITS/500 ML BAG IV SCH (20:45)
[2020-12-14 21:00] LABS: PTT,PARTIAL THROMBOPLSTIN TIME 27.6 SEC (22.0-34.0)
[2020-12-14 21:01] LABS: ANION GAP 11.7 mEq/L (7-13); CHLORIDE,CL 103 mmol/L (98-107); SODIUM,NA 139 mmol/L (136-145)
--- NOTE | 2020-12-14 21:29 | CR ---
PROCEDURE INFORMATION: Exam: XR Chest Exam date and time: 12/14/2020 8:47 PM Age: 40 years old Clinical indication: Chest wall pain; Additional info: Chest pain TECHNIQUE: Imaging protocol: XR of the chest. Views: 1 view. COMPARISON: CR Chest 1V Frontal 12/03/2019 5:33 AM FINDINGS: Airway: Patent Lungs: Unremarkable. No consolidation. Pleural spaces: Unremarkable. No pleural effusion. No pneumothorax. Heart/Mediastinum: Unremarkable. No cardiomegaly. Bones/joints: Old/healed left clavicular fracture. No acute skeletal abnormality or aggressive osseous lesion. IMPRESSION: Negative for acute thoracic pathology.
[2020-12-15 00:41] VITALS: BP 115/58; PULSE 60
== END 2020-12-15 01:32 | disposition home or self-care (01) ==
LOC: DL.ED 20:05
DX: R07.89 Other chest pain (principal); R00.1 Bradycardia, unspecified; Z88.1 Allergy status to other antibiotic agents; Z88.6 Allergy status to analgesic agent
CPT/HCPCS: 36415; 71045; 80053; 80307; 82150; 82947; 83605; 83690; 83735; 83880; 84484; 85025; 85610; 85730; 86140; 93005; 96365; 96366; 96375; 96376; 99285; A9270; J1644; J2270

== ENCOUNTER 2020-12-20 14:55 | Emergency (ER) | payer MEDICAID ==
[2020-12-20] MEDS ORDERED: Sodium Chloride 0.9% 10 ML Syringe FLUSH PRN (14:56)
[2020-12-20] MEDS ORDERED: Aspirin 81 MG Tab.Chew PO ONE (14:56)
[2020-12-20] MEDS ORDERED: Nitroglycerin 0.4 MG Tab.SL SL PRN (14:56)
[2020-12-20 15:02] VITALS: BP 115/78
--- NOTE | 2020-12-20 15:19 | CR ---
PROCEDURE INFORMATION: Exam: XR Chest Exam date and time: 12/20/2020 3:03 PM Age: 40 years old Clinical indication: Chest wall pain; Additional info: Chest pain TECHNIQUE: Imaging protocol: XR of the chest. Views: 1 view. COMPARISON: CR Chest 1V Frontal 12/14/2020 8:47 PM FINDINGS: Lungs: Unremarkable. No consolidation. Pleural spaces: Unremarkable. No pleural effusion. No pneumothorax. Heart/Mediastinum: Unremarkable. No cardiomegaly. Bones/joints: Healed fracture of the proximal left clavicle. Other findings: IMPRESSION: No acute findings
[2020-12-20 15:25] LABS: PTT,PARTIAL THROMBOPLSTIN TIME 26.8 SEC (22.0-34.0)
[2020-12-20 15:30] LABS: ANION GAP 10.2 mEq/L (7-13); CHLORIDE,CL 103 mmol/L (98-107); SODIUM,NA 137 mmol/L (136-145)
[2020-12-20 15:46] VITALS: PULSE 67
--- NOTE | 2020-12-20 16:07 | EDM.PDOC ---
Scribed by Yessica Nelson 12/20/20 1544 for Prateek Clark MD ED HPI GENERAL MEDICAL PROBLEM - General Chief Complaint: Chest Pain Stated Complaint: IN BY AMBULANCE Time Seen by Provider: 12/20/20 14:55 Source of Information: Reports: Patient, RN Notes Reviewed History Limitations: Reports: No Limitations - History of Present Illness INITIAL COMMENTS - FREE TEXT/NARRATIVE: 40 y/o F c/o CP that woke her from sleep about 2 hours ago. Evaluated last week at [facility] and was admitted for rule out cardiac. Pt was discharged a day later with no changes in troponin. The pain today is 7/10 center chest radiating into left arm and R side of neck. Pt experiences some relief in pain when she is reclined. Denies fever, cough, chills, drugs, abd pn, extremity pain, flank pain, dizziness, vision prob, sob. Onset: Today Duration: Hour(s): Location: Reports: Chest Quality: Reports: Sharp Severity: Moderate Improves with: Reports: Other (reclining) Worsens with: Reports: None Associated Symptoms: Reports: No Other Symptoms chest Pain Score (Numeric/FACES): 10 - Related Data Allergies Allergy/AdvReac Type Severity Reaction Status Date / Time ceftriaxone [From Rocephin] Allergy Hives Verified 12/14/20 20:30 cefuroxime [From Ceftin] Allergy Hives Verified 12/14/20 20:30 celecoxib [From Celebrex] Allergy Hives Verified 12/14/20 20:30 doxycycline Allergy Airway Verified 12/14/20 20:30 Tightness erythromycin base Allergy Hives Verified 12/14/20 20:30 [Erythromycin Base] ibuprofen Allergy Swelling Verified 12/14/20 20:30 naproxen Allergy Airway Verified 12/14/20 20:30 Tightness sulfamethoxazole Allergy Hives Verified 12/14/20 20:30 [From Bactrim] tramadol Allergy Rash Verified 12/14/20 20:30 trimethoprim [From Bactrim] Allergy Hives Verified 12/14/20 20:30 Home Meds: Home Meds . [No Known Home Meds] 08/18/18 [History] Past Medical History - Past Health History Medical/Surgical History: Denies Medical/Surgical History HEENT History: Reports: Impaired Vision Other HEENT History: wears corrective lenses Cardiovascular History: Reports: Other (See Below) Other Cardiovascular History: "heart stopped during surgery" Respiratory History: Reports: Pneumothorax Gastrointestinal History: Reports: Cholelithiasis, Chronic Constipation Other Gastrointestinal History: diarrhea since 3 am Genitourinary History: Reports: Other (See Below) Other Genitourinary History: endometrosis, PCOS [employer] History: Reports: Endometriosis, Polycystic Ovaries 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 Psychiatric History: Reports: None Endocrine/Metabolic History: Reports: Other (See Below) Other Endocrine/Metabolic History: "insulin resistant" Hematologic History: Reports: None Immunologic History: Reports: None Oncologic (Cancer) History: Reports: Ovarian Dermatologic History: Reports: None - Infectious Disease History Infectious Disease History: Reports: C-Difficile Other Infectious Disease History: lyme disease. - Past Surgical History Head Surgeries/Procedures: Reports: None GI Surgical History: Reports: Appendectomy, Cholecystectomy Other GI Surgeries/Procedures: laproscopic surgeries for endometriosis x18 Female Surgical History: Reports: Hysterectomy Musculoskeletal Surgical History: Reports: None Social & Family History - Family History Family Medical History: No Pertinent Family History Cardiac: Reports: None Respiratory: Reports: None GI: Reports: None Immunologic: Reports: None Dermatologic: Reports: None Oncologic: Reports: None - Caffeine Use Caffeine Use: Reports: Soda Caffeine Use Comment: mother states no caffeine use. - Living Situation & Occupation Living situation: Reports: with Family, Single Occupation: Disabled ED ROS GENERAL - Review of Systems Review Of Systems: Comprehensive ROS is negative, except as noted in HPI. ED EXAM, GENERAL - Physical Exam Exam: See Below Exam Limited By: No Limitations General Appearance: Alert, WD/WN, No Apparent Distress Eye Exam: Bilateral Eye: PERRL Nose: Normal Inspection, Normal Mucosa, No Blood Throat/Mouth: Normal Inspection, Normal Lips, Normal Teeth, Normal Gums, Normal Oropharynx, Normal Voice, No Airway Compromise Head: Atraumatic, Normocephalic Neck: Normal Inspection, Supple, Non-Tender, Full Range of Motion Respiratory/Chest: No Respiratory Distress, Lungs Clear, Normal Breath Sounds, No Accessory Muscle Use, Chest Non-Tender Cardiovascular: Normal Peripheral Pulses, Regular Rate, Rhythm, No Edema, No Gallop, No JVD, No Murmur, No Rub Peripheral Pulses: 2+: Radial (L), Radial (R) GI/Abdominal: Normal Bowel Sounds, Soft (Female) Exam: Deferred Rectal (Female) Exam: Deferred Back Exam: Normal Inspection, Full Range of Motion Extremities: Normal Inspection, Normal Range of Motion, Non-Tender, Normal Capillary Refill, No Pedal Edema Neurological: Alert, Oriented, CN II-XII Intact, Normal Cognition, Normal Gait, Normal Reflexes, No Motor/Sensory Deficits Psychiatric: Normal Affect, Normal Mood Skin Exam: Warm, Dry, Intact, Normal Color, No Rash #1 Interpretation EKG Date: 12/20/20 Time: 14:51 Rhythm: Other (SR) Rate (Beats/Min): 66 Ewen: RAD-Right Ewen Deviation P-Wave: Present QRS: Normal ST-T: Elevated (but unchanged from prior EKGs) QT: Normal Comparison: No Change Course - Vital Signs Last Recorded V/S: Last Vital Signs Temp 98.0 F 12/20/20 14:55 Pulse 67 12/20/20 14:55 Resp 16 12/20/20 14:55 BP 115/78 12/20/20 15:02 Pulse Ox 100 12/20/20 14:55 - Orders/Labs/Meds Orders: Active Orders 24 hr Category Date Time Status EKG 12 Lead [EKG Documentation Completion] [RC] STAT Care 12/20/20 14:56 Active Peripheral IV Care [RC] . DIRECTED Care 12/20/20 14:57 Active DRUG SCREEN URINE BIORAD [URCHEM] Stat Lab 12/20/20 14:56 Ordered UA RFX ADARSH AND CULT IF INDIC [URIN] Stat Lab 12/20/20 14:57 Ordered Nitroglycerin [Nitrostat] Med 12/20/20 14:56 Active 0.4 mg SL Q5M PRN Sodium Chloride 0.9% [Saline Flush] Med 12/20/20 14:56 Active 10 ml FLUSH ASDIRECTED PRN Peripheral IV Insertion Adult [OM.PC] Stat Oth 12/20/20 14:56 Ordered Medication Orders Nitroglycerin (Nitroglycerin 0.4 Mg Tab.Sl) 0.4 mg SL Q5M PRN PRN Reason: Chest Pain Last Admin: 08/09/21 15:02 Dose: 0.4 mg Documented by: JIGNESH Sodium Chloride (Sodium Chloride 0.9% 10 Ml Syringe) 10 ml FLUSH ASDIRECTED PRN PRN Reason: Keep Vein Open Labs: Laboratory Tests 12/20/20 12/20/20 12/20/20 Range/Units 15:00 15:00 15:00 WBC 7.4 (5.0-10.0) 10^3/uL RBC 4.95 (4.2-5.4) 10^6/uL Hgb 14.5 (12.0-16.0) g/dL Hct 44.1 (37.0-47.0) % MCV 89.1 (80-100) fL MCH 29.3 (27.0-34.0) pg MCHC 32.9 L (33.0-35.0) g/dL Plt Count 251 (150-450) 10^3/uL Neut % (Auto) 70.7 (42.2-75.2) % Lymph % (Auto) 17.5 L (20.5-50.1) % Pitkin % (Auto) 8.9 H (2-8) % Eos % (Auto) 2.6 (1.0-3.0) % Baso % (Auto) 0.3 (0.0-1.0) % PT 9.9 (9.0-12.0) SEC INR 1.0 (0.9-1.2) APTT 26.8 (22.0-34.0) SEC D-Dimer, Quantitative < 100 (0-400) ng/mL Sodium 137 (136-145) mmol/L Potassium 4.2 (3.5-5.1) mmol/L Chloride 103 (98-107) mmol/L Carbon Dioxide 28 (21-32) mmol/L Anion Gap 10.2 (7-13) mEq/L BUN 14 (7-18) mg/dL Creatinine 0.56 (0.55-1.02) mg/dL Est Cr Clr Drug Dosing TNP Estimated GFR (MDRD) > 60 BUN/Creatinine Ratio 25.0 (No establ ref range) Glucose 88 (70-99) mg/dL Calcium 8.6 (8.5-10.1) mg/dL Total Bilirubin 0.2 (0.2-1.0) mg/dL AST 21 (15-37) U/L ALT 28 (14-59) U/L Alkaline Phosphatase 81 (46-116) U/L Troponin I High Sens 4 (<=51) pg/mL Total Protein 6.8 (6.4-8.2) g/dL Albumin 3.3 L (3.4-5.0) g/dL Globulin 3.5 Albumin/Globulin Ratio 0.94 Amylase 54 (25-115) U/L Lipase 111 (73-393) U/L Meds: Medications Generic Name Dose Route Start Last Admin Trade Name Freq PRN Reason Stop Dose Admin Nitroglycerin 0.4 mg 12/20/20 14:56 12/20/20 15:02 Nitroglycerin 0.4 Mg Tab.Sl SL 0.4 mg Q5M PRN Administration Chest Pain Sodium Chloride 10 ml 12/20/20 14:56 Sodium Chloride 0.9% 10 Ml Syringe FLUSH ASDIRECTED PRN Keep Vein Open Discontinued Medications Generic Name Dose Route Start Last Admin Trade Name Freq PRN Reason Stop Dose Admin Aspirin 324 mg 12/20/20 14:56 12/20/20 15:00 Aspirin 81 Mg Tab.Chew PO 12/20/20 14:57 324 mg ONETIME ONE Administration - Radiology Interpretation Free Text/Narrative:: [facility] Final Radiology Report Call: [phone] assistance Online chat: [email or web address] Name: PAULY MORALES Age: 40Years F Date: 12/20/2020 SSN: -- : 1980 Study: CR CHEST 1V FRONTAL Requesting Physician: PRATEEK CLARK Images: 1 Addl Studies: Provided Clinical History: chest pain Contrast: Contrast Medium: Contrast Amount: Contrast Method: CONFIDENTIALITY STATEMENT This report is intended only for use by the referring physician, and only in accordance with law. If you received this in error, call [phone]. Page 1 of 1 PROCEDURE INFORMATION: Exam: XR Chest Exam date and time: 12/20/2020 3:03 PM Age: 40 years old Clinical indication: Chest wall pain; Additional info: Chest pain TECHNIQUE: Imaging protocol: XR of the chest. Views: 1 view. COMPARISON: CR Chest 1V Frontal 12/14/2020 8:47 PM FINDINGS: Lungs: Unremarkable. No consolidation. Pleural spaces: Unremarkable. No pleural effusion. No pneumothorax. Heart/Mediastinum: Unremarkable. No cardiomegaly. Bones/joints: Healed fracture of the proximal left clavicle. Other findings: IMPRESSION: No acute findings Thank you for allowing us to participate in the care of your patient. Dictated and Authenticated by: Timo Ralph MD 12/20/2020 3:18 PM Central Time ([place] & [place]) Departure - Departure Time of Disposition: 16:05 Disposition: Home, Self-Care 01 Condition: Good Clinical Impression: Atypical chest pain Instructions: Nonspecific Chest Pain, Adult, Pleurisy, [id number] Forms: ED Department Discharge Additional Instructions: Activity as tolerated. Follow up in clinic for further evaluation if symptoms persist. Sepsis Event Note (ED) - Focused Exam Vital Signs: Vital Signs Temp Pulse Resp BP BP Pulse Ox 12/20/20 15:02 115/78 12/20/20 14:55 98.0 F 67 16 115/78 100 - My Orders Last 24 Hours: My Active Orders 12/20/20 14:56 EKG 12 Lead [EKG Documentation Completion] [RC] STAT DRUG SCREEN URINE BIORAD [URCHEM] Stat Nitroglycerin [Nitrostat] 0.4 mg SL Q5M PRN Sodium Chloride 0.9% [Saline Flush] 10 ml FLUSH ASDIRECTED PRN Peripheral IV Insertion Adult [OM.PC] Stat 12/20/20 14:57 Peripheral IV Care [RC] . DIRECTED UA RFX ADARSH AND CULT IF INDIC [URIN] Stat - Assessment/Plan Last 24 Hours: My Active Orders 12/20/20 14:56 EKG 12 Lead [EKG Documentation Completion] [RC] STAT DRUG SCREEN URINE BIORAD [URCHEM] Stat Nitroglycerin [Nitrostat] 0.4 mg SL Q5M PRN Sodium Chloride 0.9% [Saline Flush] 10 ml FLUSH ASDIRECTED PRN Peripheral IV Insertion Adult [OM.PC] Stat 12/20/20 14:57 Peripheral IV Care [RC] . DIRECTED UA RFX ADARSH AND CULT IF INDIC [URIN] Stat I have read and agree with the documentation that has been completed regarding this visit. By signing this record, I attest that the documentation was completed in my physical presence and is an accurate record of the encounter.
== END 2020-12-20 16:44 | disposition home or self-care (01) ==
LOC: DL.ED 14:55
DX: R07.89 Other chest pain (principal); Z88.1 Allergy status to other antibiotic agents; Z88.6 Allergy status to analgesic agent; Z88.2 Allergy status to sulfonamides; Z88.5 Allergy status to narcotic agent
CPT/HCPCS: 36415; 71045; 80053; 82150; 83690; 84484; 85025; 85379; 85610; 85730; 93005; 99285; A9270

== ENCOUNTER 2022-01-06 13:00 | Emergency (ER) | payer MEDICAID ==
[2022-01-06] MEDS ORDERED: Sodium Chloride 0.9% 10 ML Syringe FLUSH PRN (13:20)
[2022-01-06 15:05] LABS: CHLORIDE,CL 103 mmol/L (98-107); SODIUM,NA 141 mmol/L (136-145)
[2022-01-06 15:08] LABS: ESTIMATED GFR 115 mL/min (>=60)
[2022-01-06 15:32] LABS: CORONAVIRUS COVID-19 NAA NEGATIVE (NEGATIVE)
[2022-01-06 16:53] LABS: AMPHETAMINES,URINE POSITIVE (NEGATIVE); BARBITURATES,URINE NEGATIVE (NEGATIVE); BENZODIAZEPINE,URINE NEGATIVE (NEGATIVE); MDMA (ECSTASY), URINE POSITIVE (NEGATIVE); METHADONE,URINE NEGATIVE (NEGATIVE); METHAMPHETAMINES,URINE POSITIVE (NEGATIVE); OPIATES,URINE NEGATIVE (NEGATIVE); OXYCODONE,URINE NEGATIVE (NEGATIVE); PHENCYCLIDINE,URINE NEGATIVE (NEGATIVE); TCA,URINE NEGATIVE (NEGATIVE)
== END 2022-01-06 18:33 | disposition home or self-care (01) ==
LOC: DL.ED 13:00
DX: R07.89 Other chest pain (principal); F19.90 Other psychoactive substance use, unspecified, uncomplicated; F17.210 Nicotine dependence, cigarettes, uncomplicated; Z88.1 Allergy status to other antibiotic agents; Z88.8 Allergy status to other drugs, medicaments and biological substances; Z88.5 Allergy status to narcotic agent; Z20.822 Contact with and (suspected) exposure to COVID-19
CPT/HCPCS: 0240U; 36415; 71045; 80053; 80305-QW; 80307; 81001; 81025; 84484; 85025; 87086; 93010; 99284; 99285; J3490

== ENCOUNTER 2022-01-09 18:49 | Emergency (ER) | payer MEDICAID ==
[2022-01-09] MEDS ORDERED: hydrOXYzine HCl 25 MG Tab PO ONE (18:50)
[2022-01-09 18:53] VITALS: BP 114/75; PULSE 98
[2022-01-09 19:56] LABS: AMPHETAMINES,URINE NEGATIVE (NEGATIVE); BARBITURATES,URINE NEGATIVE (NEGATIVE); BENZODIAZEPINE,URINE NEGATIVE (NEGATIVE); MDMA (ECSTASY), URINE NEGATIVE (NEGATIVE); METHADONE,URINE NEGATIVE (NEGATIVE); METHAMPHETAMINES,URINE POSITIVE (NEGATIVE); OPIATES,URINE NEGATIVE (NEGATIVE); OXYCODONE,URINE NEGATIVE (NEGATIVE); PHENCYCLIDINE,URINE NEGATIVE (NEGATIVE); TCA,URINE NEGATIVE (NEGATIVE)
[2022-01-09 20:05] LABS: ANION GAP 11.7 mEq/L (7-13); CHLORIDE,CL 104 mmol/L (98-107); SODIUM,NA 140 mmol/L (136-145)
[2022-01-09] MEDS ORDERED: hydrOXYzine HCl 25 MG Tab ONE (20:25)
[2022-01-09 20:26] LABS: ESTIMATED GFR 107 mL/min (>=60)
== END 2022-01-09 20:50 | disposition home or self-care (01) ==
LOC: DL.ED 18:49
DX: F41.9 Anxiety disorder, unspecified (principal); F17.210 Nicotine dependence, cigarettes, uncomplicated; Z88.1 Allergy status to other antibiotic agents; Z88.5 Allergy status to narcotic agent
CPT/HCPCS: 36415; 71045; 80053; 80305; 81001; 85025; 93005; 93010; 99284; A9270

== ENCOUNTER 2022-02-19 01:07 | Emergency (ER) | payer MEDICAID ==
[2022-03-17 10:45] LABS: SODIUM,NA 139 mmol/L (136-145)
[2022-03-17 10:46] LABS: ANION GAP 12.3 mEq/L (7-13); CHLORIDE,CL 101 mmol/L (98-107); ESTIMATED GFR 93 mL/min (>=60)
== END 2022-02-19 15:10 ==
LOC: DL.ED 01:07
DX: R07.89 Other chest pain (principal)
CPT/HCPCS: 36415; 71045; 80053; 83735; 84443; 84484; 85025; 85379; 85651; 86140; 96374; 99285-25

== ENCOUNTER 2022-07-03 21:08 | Emergency (ER) | payer MEDICAID ==
[2022-07-03 22:04] LABS: AMPHETAMINES,URINE NEGATIVE (NEGATIVE); BARBITURATES,URINE NEGATIVE (NEGATIVE); BENZODIAZEPINE,URINE NEGATIVE (NEGATIVE); MDMA (ECSTASY), URINE NEGATIVE (NEGATIVE); METHADONE,URINE NEGATIVE (NEGATIVE); METHAMPHETAMINES,URINE NEGATIVE (NEGATIVE); OPIATES,URINE NEGATIVE (NEGATIVE); OXYCODONE,URINE NEGATIVE (NEGATIVE); PHENCYCLIDINE,URINE NEGATIVE (NEGATIVE); TCA,URINE NEGATIVE (NEGATIVE)
[2022-07-03 23:48] VITALS: BP 132/77; PULSE 90
== END 2022-07-03 23:36 ==
LOC: DL.ED 21:08
DX: Z53.21 Procedure and treatment not carried out due to patient leaving prior to being seen by health care provider (principal)
CPT/HCPCS: 80305-QW; 81003

== ENCOUNTER 2022-11-29 02:48 | Emergency (ER) | payer MEDICAID ==
[2022-11-29] MEDS ORDERED: Acetaminophen/oxyCODONE 325-5 MG Tab PO ONE ×2 (03:24→05:50)
[2022-11-29 10:36] VITALS: BP 93/78; PULSE 71
== END 2022-11-29 10:05 | disposition home or self-care (01) ==
LOC: DL.ED 02:48
DX: S20.212A Contusion of left front wall of thorax, initial encounter (principal); S80.01XA Contusion of right knee, initial encounter; S80.02XA Contusion of left knee, initial encounter; J93.9 Pneumothorax, unspecified; F17.210 Nicotine dependence, cigarettes, uncomplicated; Z88.1 Allergy status to other antibiotic agents; Z88.6 Allergy status to analgesic agent; Z88.2 Allergy status to sulfonamides; Z88.5 Allergy status to narcotic agent; Z90.710 Acquired absence of both cervix and uterus; Y09 Assault by unspecified means
CPT/HCPCS: 71045; 71101; 99283; A9270

== ENCOUNTER 2022-12-01 15:19 | Emergency (ER) | payer MEDICAID ==
[2022-12-01] MEDS ORDERED: Acetaminophen/oxyCODONE 325-5 MG Tab PO ONE (16:03)
[2022-12-01] MEDS ORDERED: Levofloxacin 250 MG Tab PO ONE (16:03)
[2022-12-01 16:52] VITALS: BP 117/84; PULSE 64
== END 2022-12-01 16:38 | disposition home or self-care (01) ==
LOC: DL.ED 15:19
DX: J18.9 Pneumonia, unspecified organism (principal); S27.0XXD Traumatic pneumothorax, subsequent encounter; J90 Pleural effusion, not elsewhere classified; F17.210 Nicotine dependence, cigarettes, uncomplicated; Z88.1 Allergy status to other antibiotic agents; Z88.5 Allergy status to narcotic agent; Z88.8 Allergy status to other drugs, medicaments and biological substances; Y04.0XXD Assault by unarmed brawl or fight, subsequent encounter
CPT/HCPCS: 71111; 99285; A9270

== ENCOUNTER 2022-12-19 14:21 | Emergency (ER) | payer MEDICAID ==
[2022-12-19] MEDS ORDERED: Sodium Chloride 0.9% 10 ML Syringe FLUSH PRN (14:43)
[2022-12-19 14:52] VITALS: PULSE 98
[2022-12-19 14:53] LABS: BASOPHILS PERCENT AUTO 0.2 % (0.0-1.0); EOSINOPHILS PERCENT AUTO 0.6 % (1.0-3.0); HEMATOCRIT 40.8 % (37.0-47.0); HEMOGLOBIN 13.6 g/dL (12.0-16.0); LYMPHOCYTES PERCENT AUTO 20.7 % (20.5-50.1); MEAN CORPUSCULAR HEMOGLOBIN 29.1 pg (27.0-34.0); MEAN CORPUSCULAR HGB CONC 33.3 g/dL (33.0-35.0); MEAN CORPUSCULAR VOLUME 87.4 fL (80-100); MONOCYTES PERCENT AUTO 9.7 % (2-8); NEUTROPHILS PERCENT AUTO 68.8 % (42.2-75.2); PLATELET COUNT,PLT 326 10^3/uL (150-450); RED BLOOD CELL COUNT 4.67 10^6/uL (4.2-5.4); WHITE BLOOD CELL COUNT,WBC 10.4 10^3/uL (5.0-10.0)
[2022-12-19 15:15] LABS: ALANINE AMINOTRANSFERASE,ALT 17 U/L (14-59); ALBUMIN 3.9 g/dL (3.4-5.0); ALKALINE PHOSPHATASE 95 U/L (46-116); ASPARTATE AMNIOTRANSFERASE,AST 14 U/L (15-37); BILIRUBIN TOTAL 0.5 mg/dL (0.2-1.0); BLOOD UREA NITROGEN,BUN 9 mg/dL (7-18); BUN/CREATININE RATIO 12.9 (No establ ref range); C-REACTIVE PROTEIN 1.6 mg/dL (0.0-0.9); CALCIUM 9.1 mg/dL (8.5-10.1); CARBON DIOXIDE,CO2 25 mmol/L (21-32); CHLORIDE,CL 103 mmol/L (98-107); GLUCOSE RANDOM 94 mg/dL (70-99); SODIUM,NA 139 mmol/L (136-145)
[2022-12-19 15:16] LABS: LACTIC ACID 0.6 mmol/L (0.4-2.0)
[2022-12-19 15:20] LABS: B-TYPE NATRIURETIC PEPTIDE,BNP < 5 pg/ml (0-100)
[2022-12-19 15:21] LABS: ESTIMATED GFR 112 mL/min (>=60)
[2022-12-19 15:24] LABS: INR 0.9 (0.9-1.2); PROTHROMBIN TIME 9.3 SEC (9.0-12.0); PTT,PARTIAL THROMBOPLSTIN TIME 29.4 SEC (22.0-34.0)
[2022-12-19] MEDS ORDERED: Ketorolac 30 MG/ML SDV IVPUSH ONE (15:39)
== END 2022-12-19 16:08 | disposition home or self-care (01) ==
LOC: DL.ED 14:21
DX: R07.89 Other chest pain (principal); Z88.1 Allergy status to other antibiotic agents; Z88.8 Allergy status to other drugs, medicaments and biological substances; Z88.2 Allergy status to sulfonamides; Z88.6 Allergy status to analgesic agent; Y09 Assault by unspecified means
CPT/HCPCS: 36415; 71045; 80053; 83605; 83735; 83880; 84145; 84484; 85025; 85379; 85610; 85730; 86140; 93005; 96374; 99285; J1885; 93010; 99284; J3490

== ENCOUNTER 2024-10-21 20:23 | Emergency (ER) | payer MEDICAID ==
[2024-10-21] MEDS: Iopamidol 612 MG/ML 100 ML Bottle IVPUSH ONE (20:40)
[2024-10-21] MEDS: Sodium Chloride 0.9% 1,000 ML IV ONE (20:49)
[2024-10-21] MEDS: Ampicillin/Sulbactam Na 3 GM in Sodium Chloride 0.9% 100 ML IV ONE (20:49)
[2024-10-21 20:59] LABS: BASOPHILS PERCENT AUTO 0.4 % (0.0-1.0); EOSINOPHILS PERCENT AUTO 1.1 % (1.0-3.0); HEMATOCRIT 41.3 % (37.0-47.0); HEMOGLOBIN 13.6 g/dL (12.0-16.0); LYMPHOCYTES PERCENT AUTO 19.3 % (20.5-50.1); MEAN CORPUSCULAR HGB CONC 32.9 g/dL (33.0-35.0); MEAN CORPUSCULAR VOLUME 88.1 fL (80-100); MONOCYTES PERCENT AUTO 9.7 % (2-8); NEUTROPHILS PERCENT AUTO 69.5 % (42.2-75.2); PLATELET COUNT,PLT 275 10^3/uL (150-450); RED BLOOD CELL COUNT 4.69 10^6/uL (4.2-5.4); WHITE BLOOD CELL COUNT,WBC 9.2 10^3/uL (5.0-10.0)
[2024-10-21 21:18] LABS: A/G RATIO 0.9; ALBUMIN 3.4 g/dL (3.4-5.0); ANION GAP 13.4 mEq/L (7-13); BILIRUBIN TOTAL 0.4 mg/dL (0.2-1.0); BUN/CREATININE RATIO 12.7 (No establ ref range); CALCIUM 9.2 mg/dL (8.5-10.1); CREATININE 0.79 mg/dL (0.55-1.02); EST CRCL DRUG DOSING (CG) 76.74 mL/min; POTASSIUM,K 3.4 mmol/L (3.5-5.1); PROTEIN TOTAL,TP 7.4 g/dL (6.4-8.2)
[2024-10-21 22:46] VITALS: BP 116/86; PULSE 81
[2024-10-21] MEDS: Take Home: Amoxicillin/Clavulanate K 875-125 MG Tab, 6 Tab Pack PO ONE (22:58)
== END 2024-10-21 23:06 | disposition home or self-care (01) ==
LOC: DL.ED 20:23
DX: K04.7 Periapical abscess without sinus (principal); L03.213 Periorbital cellulitis; Z88.1 Allergy status to other antibiotic agents; Z88.2 Allergy status to sulfonamides; Z88.5 Allergy status to narcotic agent; Z88.8 Allergy status to other drugs, medicaments and biological substances; Z90.710 Acquired absence of both cervix and uterus
CPT/HCPCS: 36415; 70487; 80053; 84703; 85025; 96365; 99284; 99284-25; A9270-GY; J0295; J7030; Q9967

== ENCOUNTER 2024-12-14 02:13 | Emergency (ER) | payer MEDICAID ==
[2024-12-14] MEDS: Ondansetron 4 MG/2 ML SDV IVPUSH ONE (02:46)
[2024-12-14 02:48] LABS: BASOPHILS PERCENT AUTO 0.1 % (0.0-1.0); EOSINOPHILS PERCENT AUTO 2.0 % (1.0-3.0); LYMPHOCYTES PERCENT AUTO 24.0 % (20.5-50.1); MONOCYTES PERCENT AUTO 10.3 % (2-8); NEUTROPHILS PERCENT AUTO 63.6 % (42.2-75.2); PLATELET COUNT,PLT 300 10^3/uL (150-450); RED BLOOD CELL COUNT 4.33 10^6/uL (4.2-5.4); WHITE BLOOD CELL COUNT,WBC 8.9 10^3/uL (5.0-10.0)
[2024-12-14 02:52] LABS: APPEARANCE,URINE CLOUDY (CLEAR); GLUCOSE,URINE NEGATIVE (NEGATIVE); OCCULT BLOOD,URINE NEGATIVE (NEGATIVE)
[2024-12-14 02:57] LABS: AMPHETAMINES,URINE NEGATIVE (NEGATIVE); BARBITURATES,URINE NEGATIVE (NEGATIVE); MDMA (ECSTASY), URINE NEGATIVE (NEGATIVE); METHAMPHETAMINES,URINE POSITIVE (NEGATIVE); OPIATES,URINE NEGATIVE (NEGATIVE); OXYCODONE,URINE NEGATIVE (NEGATIVE); PHENCYCLIDINE,URINE NEGATIVE (NEGATIVE); TCA,URINE NEGATIVE (NEGATIVE)
[2024-12-14 03:01] LABS: EPITHELIAL CELLS,URINE MODERATE /HPF (NOT SEEN); YEAST,URINE FEW /HPF (NOT SEEN)
[2024-12-14 03:05] LABS: A/G RATIO 0.97; ALANINE AMINOTRANSFERASE,ALT 20.0 U/L (14-59); ASPARTATE AMNIOTRANSFERASE,AST 12.0 U/L (15-37); BILIRUBIN TOTAL 0.1 mg/dL (0.2-1.0); BLOOD UREA NITROGEN,BUN 20.0 mg/dL (7-18); CARBON DIOXIDE,CO2 27.0 mmol/L (21-32); CHLORIDE,CL 106.0 mmol/L (98-107); CREATININE 0.69 mg/dL (0.55-1.02); EST CRCL DRUG DOSING (CG) 87.86 mL/min; ESTIMATED GFR 111.0 mL/min (>=60); GLUCOSE RANDOM 94.0 mg/dL (70-99); POTASSIUM,K 4.2 mmol/L (3.5-5.1); PROTEIN TOTAL,TP 6.5 g/dL (6.4-8.2); SODIUM,NA 140.0 mmol/L (136-145)
[2024-12-14 03:08] LABS: LACTIC ACID 0.6 mmol/L (0.4-2.0)
[2024-12-14] MEDS: Take Home: Nitrofurantoin Monohydrate/Macrocrystalline 100 MG, 6 Cap Pack PO ONE (04:47)
[2024-12-14 05:04] VITALS: BP 113/89; PULSE 86
[2024-12-16 10:46] LABS: C.TRACHOMATIS BY TMA Negative (Negative); N.GONORRHOEAE BY TMA Negative (Negative)
== END 2024-12-14 04:56 | disposition home or self-care (01) ==
LOC: DL.ED 02:13
DX: N39.0 Urinary tract infection, site not specified (principal); R10.31 Right lower quadrant pain; F17.200 Nicotine dependence, unspecified, uncomplicated; Z88.1 Allergy status to other antibiotic agents; Z88.2 Allergy status to sulfonamides; Z88.5 Allergy status to narcotic agent; Z88.8 Allergy status to other drugs, medicaments and biological substances; Z90.710 Acquired absence of both cervix and uterus
CPT/HCPCS: 36415; 74176; 80053; 80305; 80307; 81001; 83605; 83690; 83735; 85025; 87491; 87591; 96361; 96374; 96375; 99284; A9270; J2270; J2405; J7030

== ENCOUNTER 2025-02-15 20:34 | Emergency (ER) | payer MEDICAID ==
[2025-02-15] MEDS: Ketorolac 30 MG/ML SDV IVPUSH ONE (21:01)
[2025-02-15] MEDS: Iopamidol 755 Mg/ML 100 ML Bottle IVPUSH ONE (21:34)
[2025-02-16 00:17] VITALS: BP 114/77; PULSE 58
== END 2025-02-15 22:20 | disposition home or self-care (01) ==
LOC: DL.ED 20:34
DX: S29.9XXA Unspecified injury of thorax, initial encounter (principal); Z88.1 Allergy status to other antibiotic agents; Z88.8 Allergy status to other drugs, medicaments and biological substances; Z88.6 Allergy status to analgesic agent; Y04.2XXA Assault by strike against or bumped into by another person, initial encounter; Y93.89 Activity, other specified
CPT/HCPCS: 71260; 96372; 96374; 99284; J1885; J2270; J7030; Q9967; 99283

== ENCOUNTER 2025-03-16 18:19 | Emergency (ER) | payer MEDICAID ==
[2025-03-16] MEDS: Fluorescein 1 MG Ophth Strip EYERT ONE (18:35)
[2025-03-16 18:52] VITALS: BP 128/62; PULSE 89
== END 2025-03-16 18:50 | disposition home or self-care (01) ==
LOC: DL.ED 18:19
DX: S05.01XA Injury of conjunctiva and corneal abrasion without foreign body, right eye, initial encounter (principal); H10.9 Unspecified conjunctivitis; Z90.710 Acquired absence of both cervix and uterus; Z88.1 Allergy status to other antibiotic agents; Z88.6 Allergy status to analgesic agent; Z88.2 Allergy status to sulfonamides; Z88.5 Allergy status to narcotic agent; X58.XXXA Exposure to other specified factors, initial encounter
CPT/HCPCS: 99283; A9270; J3490